=== PATIENT | female | born 1995 | race Caucasian/White ===

== ENCOUNTER 2019-06-01 10:44 | Emergency (ER) | payer OTHER, MEDICAID, SELFPAY ==
[2019-06-01 10:55] VITALS: BP 122/76; PULSE 87; RESP 17; TEMP 36.3; O2SAT 100
--- NOTE | 2019-06-01 11:07 | ED.FEMALEGU ---
HPI - Female Genitourinary General Chief complaint: Urogenital-Female Stated complaint: Pos UTI Time Seen by Provider: 06/01/19 11:07 Source: patient and RN notes reviewed History of Present Illness HPI Narrative: Patient is a 24-year-old male that presents the urgent care with complaints of a possible UTI. Patient states that it started 5 days ago and then resolved a little and then started again within the last 2 days. Patient states that she has had some mild low back pain and burning with urination. Denies of any known fevers, vomiting, abdominal pain. Patient states she does have history of urinary tract infections but has been approximately 2 years. No other acute complaints. No acute distress noted. Patient aware of the plan of care. Related Data Home Medications Medication Instructions Recorded Confirmed bupropion HCl 150 mg PO DAILY 06/01/19 06/01/19 fluoxetine [Prozac] 10 mg PO DAILY 06/01/19 06/01/19 Allergies Allergy/AdvReac Type Severity Reaction Status Date / Time Sulfa (Sulfonamide Allergy Swelling Verified 06/01/19 11:00 Antibiotics) Review of Systems Review of Systems: Narrative: CONSTITUTIONAL: Denies fever, chills, or sweats. EYES: Denies visual changes, redness, or discharge. ENT: Denies rhinorrhea, congestion, sore throat, or otalgia. CARDIOVASCULAR: Denies chest pain, palpitations, or edema. RESPIRATORY: Denies cough or dyspnea. GASTROINTESTINAL: Denies abdominal pain, nausea, vomiting, or diarrhea. GENITOURINARY: Reports of dysuria and suprapubic pressure SKIN: Denies rash or itching. MUSCULOSKELETAL: Denies back pain, joint pain, or myalgia. NEUROLOGIC: Denies headache, numbness, or weakness. All other systems reviewed are negative, except as documented in HPI. PMFSH Comments At the time of my signature, I reviewed and agree with the nursing past medical, surgical, social, and family history. There is no relevant family history pertinent to the patient complaint. Exam Narrative: Exam Narrative: GENERAL: This is a well-nourished, well-developed patient, in no apparent distress. HEAD: normocephalic, atraumatic. EYES: PERRL. Sclera clear/white. Vision is grossly intact. EARS: External ears normal NOSE: External nose normal with no obvious nasal discharge THROAT: Mucous membranes moist NECK: Neck supple CARDIOVASCULAR: Regular rate and rhythm without murmurs, gallops, or rubs. RESPIRATORY: Clear to auscultation. Breath sounds equal bilaterally. No wheezes, rales, or rhonchi. ABDOMINAL: Soft, nondistended, mild suprapubic tenderness SKIN: warm, intact with no suspicious lesions or rash, good texture and turgor. NEURO: awake, alert, and oriented to person, place and time. There were no obvious focal neurologic abnormalities. EXTREMITIES: No clubbing, cyanosis, or edema. BACK: Mild left CVA tenderness Course Vital Signs Vital signs: Vital Signs Temperature 97.3 F L 06/01/19 10:55 Pulse Rate 87 06/01/19 10:55 Respiratory Rate 17 06/01/19 10:55 Blood Pressure 122/76 06/01/19 10:55 Pulse Oximetry 100 06/01/19 10:55 Temperature 97.3 F L 06/01/19 10:55 Pulse Rate 87 06/01/19 10:55 Respiratory Rate 17 06/01/19 10:55 Blood Pressure 122/76 06/01/19 10:55 Pulse Oximetry 100 06/01/19 10:55 Reviewed MDM - Female Genitourinary MDM Narrative Medical decision making narrative: Reviewed lab results with the patient. She is aware that her urine analysis is indicative for urinary tract infection. Advised the patient to complete antibiotic regimen as prescribed. Avoid caffeinated and sugary drinks. Increase water intake. Use Tylenol/ibuprofen as needed. Make sure to eat and drink with the medication. If you develop any increase in symptoms associated with abdominal pain, nausea, vomiting, low back pain?go to the emergency room. Complete 1 dose of Diflucan after antibiotic regimen is completed. Follow-up with PCP within 2 to 5 days if her worsening symptoms
== END 2019-06-01 11:33 | disposition home or self-care (01) ==
PROVIDERS: Emergency Provider Nurse Practitioner Family
DX: N39.0 Urinary tract infection, site not specified (principal); J45.909 Unspecified asthma, uncomplicated
CPT/HCPCS: 81003; 87077; 87086; 87088; 87186; 99213; G0463

== ENCOUNTER 2019-10-19 16:37 | Emergency (ER) | payer OTHER, MEDICAID, SELFPAY ==
[2019-10-19 16:57] VITALS: BP 114/51; PULSE 77; RESP 20; TEMP 36.4; O2SAT 96
--- NOTE | 2019-10-19 17:19 | ED.FEMALEGU ---
HPI - Female Genitourinary General Chief complaint: Urogenital-Female Stated complaint: pos uti Time Seen by Provider: 10/19/19 17:19 Source: patient and RN notes reviewed Limitations: no limitations History of Present Illness HPI Narrative: 24-year-old female who presents to urgent care with complaints of 3-day history of painful urination. Patient states that she has pressure in her lower abdomen and in urethra area with urination. She reports taking a dose of AZO last pm for he symptoms with no improvement noted. Patient denies any fevers, chills or sweats, no nausea or vomiting or any acute abdominal pain. She reports no visible hematuria. MD elicited complaint: dysuria and UTI Pertinent past history: recurrent UTIs Onset (ago): day(s) (2) Location of symptoms: external genitalia, perineum and suprapubic Severity: moderate Severity scale (1-10): 4 Quality of pain: aching Consistency: intermittent Vaginal discharge: none Urinary symptoms: Dysuria and Frequency Exacerbating factors: none Relieving factors: none Associated symptoms: abdominal pain (suprapubic pressure) Treatment prior to arrival: other (increased fluis, AZO one dose) Sexual activity: Yes Patient : No Related Data Home Medications Medication Instructions Recorded Confirmed albuterol sulfate 2 puff INHALATION QID PRN 10/19/19 10/19/19 Allergies Allergy/AdvReac Type Severity Reaction Status Date / Time Sulfa (Sulfonamide Allergy Swelling Verified 10/19/19 16:56 Antibiotics) Review of Systems Review of Systems: Narrative: CONSTITUTIONAL: Denies fever, chills, or sweats. EYES: Denies visual changes, redness, or discharge. ENT: Denies rhinorrhea, congestion, sore throat, or otalgia. CARDIOVASCULAR: Denies chest pain, palpitations, or edema. RESPIRATORY: Denies cough or dyspnea. GASTROINTESTINAL: suprapubic abdominal pain, no nausea, vomiting, or diarrhea. GENITOURINARY: positive dysuria no visible hematuria. SKIN: Denies rash or itching. MUSCULOSKELETAL: Denies back pain, joint pain, or myalgia. NEUROLOGIC: Denies headache, numbness, or weakness. PSYCHIATRIC: Denies anxiety or depression. All systems reviewed & are unremarkable except as noted in HPI and below PMFSH Past Medical History Medical History (Updated 10/20/19 @ 21:00 by Cara Pascual NP) Asthma Hypothyroidism UTI (urinary tract infection) Surgical History Surgical History (Updated 10/19/19 @ 17:22 by Cara Pascual NP) History of tonsillectomy Social History Social History (Updated 10/19/19 @ 17:27 by Cara Pascual NP) Smoking status: Never smoker Alcohol intake: current Alcohol use details: rare Living arrangements: with family Gender identity (if verbalized by the patient): Female Comments At time of signature, agree with nursing past medical, surgical, social history. There is no relevant family history pertinent to the presenting complaint Exam Narrative: Exam Narrative: GENERAL: Well-appearing, well-nourished, and in no acute distress. HEAD: Normocephalic, atraumatic. EYES: PERRLA and EOMI. ENT: Nares clear, no rhinorrhea or epistaxis. Mucous membranes moist. NECK: Supple. CHEST: Clear to auscultation. No respiratory distress. HEART: Regular rate and rhythm. No murmur heard. Normal peripheral pulses. ABDOMEN: Soft, suprapubic tender, nondistended, normal active bowel sounds.no back or flank pain EXTREMITIES: Normal range of motion. No edema. SKIN: Warm, dry, no rash. NEURO: No focal deficits. Alert and oriented x3. Course Vital Signs Vital signs: Vital Signs Temperature 36.4 C L 10/19/19 16:57 Pulse Rate 77 10/19/19 16:57 Respiratory Rate 10/19/19 16:57 Blood Pressure 114/51 L 10/19/19 16:57 Pulse Oximetry 96 10/19/19 16:57 Temperature 36.4 C L 10/19/19 16:57 Pulse Rate 77 10/19/19 16:57 Respiratory Rate 10/19/19 16:57 Blood Pressure 114/51 L 10/19/19 16:57 Pulse Oximetry 96
== END 2019-10-19 17:47 | disposition home or self-care (01) ==
PROVIDERS: Emergency Provider Registered Nurse
DX: N39.0 Urinary tract infection, site not specified (principal); J45.909 Unspecified asthma, uncomplicated; E03.9 Hypothyroidism, unspecified
CPT/HCPCS: 81003; 87077; 87086; 87088; 87186; 99213; G0463

== ENCOUNTER 2019-11-05 15:17 | Emergency (ER) | payer OTHER, MEDICAID, SELFPAY ==
--- NOTE | 2019-11-05 15:23 | ED.GENADULT ---
HPI - General Adult General Chief complaint: Urogenital-Female Stated complaint: Urogenital-female Time Seen by Provider: 11/05/19 15:42 Source: patient Mode of arrival: ambulatory Limitations: no limitations History of Present Illness HPI narrative: 24-year-old female patient presents to the [facility] with complaints of urinary symptoms that started yesterday. Patient states she has had burning and pain with urination as well as some lower abdominal pressure. Denies any low back pain. Denies any nausea, vomiting, diarrhea or fevers. Patient states she has not had a period in about 3 months and is currently not on control. Patient states that she is sexually active with a monogamous person. Patient does not have any concerns for STDs. Patient states she was seen here about 2 weeks ago for the same symptoms and was put on antibiotics at that time for UTI which she states that after taking the medication her symptoms. Did clear up until yesterday. Patient states that she has gotten UTIs frequently especially when she was in high school. Related Data Home Medications Medication Instructions Recorded Confirmed albuterol sulfate 2 puff INHALATION QID PRN 10/19/19 11/05/19 Allergies Allergy/AdvReac Type Severity Reaction Status Date / Time Sulfa (Sulfonamide Allergy Swelling Verified 10/19/19 16:56 Antibiotics) Review of Systems Review of Systems: Narrative: CONSTITUTIONAL: Denies fever, chills, or sweats. EYES: Denies visual changes, redness, or discharge. ENT: Denies rhinorrhea, congestion, sore throat, or otalgia. CARDIOVASCULAR: Denies chest pain, palpitations, or edema. RESPIRATORY: Denies cough or dyspnea. GASTROINTESTINAL: Denies abdominal pain, nausea, vomiting, or diarrhea. GENITOURINARY: Denies dysuria or hematuria. Positive pain with urination and lower abdominal pressure SKIN: Denies rash or itching. MUSCULOSKELETAL: Denies back pain, joint pain, or myalgia. NEUROLOGIC: Denies headache, numbness, or weakness. PSYCHIATRIC: Denies anxiety or depression. [facility] Past Medical History Medical History Asthma Hypothyroidism UTI (urinary tract infection) Surgical History Surgical History History of tonsillectomy Social History Social History Smoking status: Never smoker Alcohol intake: current Gender identity (if verbalized by the patient): Female Comments At the time of my signature I agree with nursing past medical history, surgical, social, and family history. There is no relevant family history pertinent to the presenting complaint. Exam Narrative: Exam Narrative: GENERAL: Well-appearing, well-nourished, and in no acute distress. HEAD: Normocephalic, atraumatic. EYES: PERRLA and EOMI. ENT: Nares clear, no rhinorrhea or epistaxis. Mucous membranes moist. NECK: Supple. No lymphadenopathy CHEST: Clear to auscultation. No respiratory distress. HEART: Regular rate and rhythm. No murmur heard. Normal peripheral pulses. ABDOMEN: Soft, nontender, nondistended, normal active bowel sounds. No CVA tenderness on percussion EXTREMITIES: Normal range of motion. No edema. SKIN: Warm, dry, no rash. NEURO: No focal deficits. Alert and oriented x3. Course Vital Signs Vital signs: Vital Signs Temperature 36.6 C 11/05/19 15:28 Pulse Rate 124 H 11/05/19 15:28 Respiratory Rate 16 11/05/19 15:28 Blood Pressure 126/71 11/05/19 15:28 Pulse Oximetry 100 11/05/19 15:28 Temperature 36.6 C 11/05/19 15:28 Pulse Rate 124 H 11/05/19 15:28 Respiratory Rate 16 11/05/19 15:28 Blood Pressure 126/71 11/05/19 15:28 Pulse Oximetry 100 11/05/19 15:28 Vital signs reviewed. Medical Decision Making Differential Diagnosis Differential Diagnosis: Differential diagnosis: Uncomplicated lower UTI, uncomplicated UTI, john
[2019-11-05 15:28] VITALS: BP 126/71; PULSE 124; RESP 16; TEMP 36.6; O2SAT 100
== END 2019-11-05 15:56 | disposition home or self-care (01) ==
PROVIDERS: Emergency Provider Nurse Practitioner Family
DX: N30.01 Acute cystitis with hematuria (principal); J45.909 Unspecified asthma, uncomplicated; E03.9 Hypothyroidism, unspecified
CPT/HCPCS: 81003; 81025; 87086; 87088; 99213; G0463

== ENCOUNTER 2020-04-06 08:58 | Emergency (ER) | payer OTHER, MEDICAID, SELFPAY ==
[2020-04-06 09:09] VITALS: BP 124/80; PULSE 69; RESP 16; TEMP 36.6; O2SAT 100
--- NOTE | 2020-04-06 09:34 | ED.FEMALEGU ---
HPI - Female Genitourinary General Chief complaint: Urogenital-Female Stated complaint: uti symptoms Source: patient and RN notes reviewed Limitations: no limitations History of Present Illness HPI Narrative: The obese patient, non-smoker/nondrinker, presents with a couple day history of urinary frequency, urgency and dysuria. Symptoms are like prior UTI a couple months ago --that were culture pansensitive [prior to that, she had ampicillin and Cipro resistance]. No fever, LBP, hematuria, vaginal discharge-she had a recent negative test. Symptoms are mild, worse with micturition. Related Data Allergies Allergy/AdvReac Type Severity Reaction Status Date / Time Sulfa (Sulfonamide Allergy Swelling Verified 04/06/20 09:10 Antibiotics) Review of Systems Review of Systems: Narrative: General/Constitutional: No weight loss,fever Eyes: N0: Redness,discharge Ears/Nose/Throat: No: Epistaxis,ear discharge Respiratory: Denies: Hemoptysis Gastrointestinal: No Vomiting, Bleeding-rectal Skin: No Lumps, eruption Neurologic: No Focal Weakness,Sz Hematologic: Denies: Petechiae/Purpura Psychiatric: No: Suicida ideationl All Other Systems: Reviewed and Negative [facility] Past Medical History Medical History (Updated 04/06/20 @ 09:36 by Mason Amaya MD) Asthma Hypothyroidism UTI (urinary tract infection) Surgical History Surgical History History of tonsillectomy Social History Social History Smoking status: Never smoker Alcohol intake: current Gender identity (if verbalized by the patient): Female Comments At time of signature, agree with nursing past medical, surgical, social and family history. There is no relevant family history pertinent to the presenting complaint Exam Narrative: Exam Narrative: General Appearance: Well appearing,Conjunctiva clear Ears: External ear normal Nose: Normal nose Mouth/Throat: Normal appearing, Normal lips, Supple Respiratory: Airway patent, No respiratory distress Cardiovascular: RRR Abdomen: Soft, Non-tender, No massess, No organomegaly (no rebound/ surgical signs), Musculoskeletal: Full ROM Skin: Warm, Dry Neurological: A&O x3, Normal mood, Normal affect Course Vital Signs Vital signs: Vital Signs Temperature 97.8 F 04/06/20 09:09 Pulse Rate 69 04/06/20 09:09 Respiratory Rate 16 04/06/20 09:09 Blood Pressure 124/80 04/06/20 09:09 Pulse Oximetry 100 04/06/20 09:09 Temperature 97.8 F 04/06/20 09:09 Pulse Rate 69 04/06/20 09:09 Respiratory Rate 16 04/06/20 09:09 Blood Pressure 124/80 04/06/20 09:09 Pulse Oximetry 100 04/06/20 09:09 MDM - Female Genitourinary Lab Data Labs: Urine Glucose Negative Reference Range: Negative Urine Bilirubin Negative Reference Range: Negative Urine Ketone Negative Reference Range: Negative Urine Specific [place] 1.030 Reference Range:1.001-1.035 Urine Blood Trace Reference Range: Negative * * Urine pH 5.5 Reference Range: 5.0-9.0 Urine Protein Trace Reference Range: Negative Urine Urobilinogen 0.2 Reference Range: 0.2-1.0 Urine Nitrate Negative Reference Range: Negative Urine Leukocyte
== END 2020-04-06 09:40 | disposition home or self-care (01) ==
PROVIDERS: Emergency Provider Emergency Medicine; PCP Family Medicine
DX: N30.90 Cystitis, unspecified without hematuria (principal); J45.909 Unspecified asthma, uncomplicated; E03.9 Hypothyroidism, unspecified
CPT/HCPCS: 81003; 87077; 87086; 87088; 87186; 87491; 87591; 87661; 99214; G0463

== ENCOUNTER 2020-10-09 18:14 | Emergency (ER) | payer OTHER, MEDICAID, SELFPAY ==
[2020-10-09 18:20] VITALS: BP 137/79; PULSE 103; RESP 16; TEMP 36.8; O2SAT 100
--- NOTE | 2020-10-09 18:31 | ED.SYNCOPE ---
HPI - Syncope General Chief Complaint: Syncope Stated Complaint: PASSING OUT Time Seen by Provider: 10/09/20 18:31 Source: patient and RN notes reviewed History of Present Illness HPI narrative: Patient is a 25-year-old female who presents the urgent care with complaints of falling asleep/nodding off multiple times a day . Patient states that this has been occurring for approximately 4 weeks. Denies of any recent head injury. States that she is not passing out but rather it nodding off . Patient denies of any loss of consciousness. States that the nodding off last approximately seconds. Patient denies of any new medications or illicit drug use. States that she has called her primary care doctor and has an appointment next week. Denies of any recent changes in diet or any strenuous exercise. No other acute complaints. No acute distress noted. Patient aware of the plan of care. Some parts of this dictation were generated by voice recognition software and may contain typographical and/or grammatical inaccuracies. Related Data Allergies Allergy/AdvReac Type Severity Reaction Status Date / Time Sulfa (Sulfonamide Allergy Swelling Verified 04/06/20 09:10 Antibiotics) Review of Systems Review of Systems: Narrative: CONSTITUTIONAL: Denies fever, chills, or sweats. EYES: Denies visual changes, redness, or discharge. ENT: Denies rhinorrhea, congestion, sore throat, or otalgia. CARDIOVASCULAR: Denies chest pain, palpitations, or edema. RESPIRATORY: Denies cough or dyspnea. GASTROINTESTINAL: Denies abdominal pain, nausea, vomiting, or diarrhea. GENITOURINARY: Denies dysuria or hematuria. SKIN: Denies rash or itching. MUSCULOSKELETAL: Denies back pain, joint pain, or myalgia. NEUROLOGIC: Reports of episodes of nodding off . All other systems reviewed are negative, except as documented in HPI. [facility] Past Medical History Medical History (Updated 10/09/20 @ 19:02 by LISSET Leyva) Asthma Hypothyroidism UTI (urinary tract infection) Surgical History Surgical History History of tonsillectomy Social History Social History Smoking status: Never smoker Alcohol intake: current Alcohol use details: rare Gender identity (if verbalized by the patient): Female Comments At the time of my signature, I reviewed and agree with the nursing past medical, surgical, social, and family history. There is no relevant family history pertinent to the patient complaint. Exam Narrative: Exam Narrative: GENERAL: This is a well-nourished, well-developed patient, in no apparent distress. HEAD: normocephalic, atraumatic. EYES: PERRL. Sclera clear/white. Vision is grossly intact. EARS: External ears normal, auditory canals clear and without drainage, TMs normal without perforation. Hearing grossly intact. NOSE: External nose normal with no obvious nasal discharge, nares without redness, no rhinorrhea. THROAT: Mucous membranes moist, posterior pharynx clear. NECK: Neck supple, non-tender without lymphadenopathy, masses or thyromegaly. CARDIOVASCULAR: Regular rate and rhythm without murmurs, gallops, or rubs. RESPIRATORY: Clear to auscultation. Breath sounds equal bilaterally. No wheezes, rales, or rhonchi. SKIN: warm, intact with no suspicious lesions or rash, good texture and turgor. NEURO: awake, alert, and oriented to person, place and time. There were no obvious focal neurologic abnormalities. EXTREMITIES: No clubbing, cyanosis, or edema. Course Vital Signs Vital signs: Vital Signs Temperature 98.3 F 10/09/20 18:20 Pulse Rate 103 H 10/09/20 18:20 Respiratory Rate 16 10/09/20 18:20 Blood Pressure 137/79 10/09/20 18:20 Pulse Oximetry 100 10/09/20 18:20 Temperature 98.3 F 10/09/20 18:20 Pulse Rate 90 10/09/20 18:50 Respiratory Rate 16 10/09/20 18:20 Blood Pressure 114/67
--- NOTE | 2020-10-09 18:37 | ECG_ITS ---
Measurements Intervals [place] Rate: 73 P: 58 MA: 148 QRS: 60 QRSD: 77 T: 37 QT: 344 QTc: 381 Interpretive Statements SINUS RHYTHM NORMAL ECG Electronically Signed On 10-10-2020 7:52:09 CDT by Ulises Kuhn D.O.
[2020-10-09 18:49] VITALS: BP 114/69; BP 125/86; PULSE 74; PULSE 85
[2020-10-09 18:49] LABS: Glucose Point of Care 85 mg/dl (65-105)
[2020-10-09 18:50] VITALS: BP 114/67; PULSE 90
== END 2020-10-09 19:08 | disposition home or self-care (01) ==
PROVIDERS: Emergency Provider Nurse Practitioner Family; PCP Family Medicine
DX: R53.83 Other fatigue (principal); J45.909 Unspecified asthma, uncomplicated; E03.9 Hypothyroidism, unspecified
CPT/HCPCS: 82948; 93005; 99213; G0463

== ENCOUNTER 2021-03-27 16:55 | Emergency (ER) | payer OTHER, MEDICAID, SELFPAY ==
--- NOTE | 2021-03-27 16:59 | ED.FEMALEGU ---
HPI - Female Genitourinary General Chief complaint: Urogenital-Female Stated complaint: Urinary pain Time Seen by Provider: 03/27/21 16:59 Source: patient and RN notes reviewed History of Present Illness HPI Narrative: Patient is a 26-year-old female who presents to urgent care with complaints of a possible UTI. Patient states that her symptoms started last night with burning on urination and suprapubic pressure. Patient denies of any frequency, urgency or blood in the urine. Denies of any fever or vomiting. Patient is increased her water intake but otherwise has not taken anything [id number] for her symptoms. No other acute complaints. No acute distress noted. Patient aware of the plan of care. Some parts of this dictation were generated by voice recognition software and may contain typographical and/or grammatical inaccuracies. Related Data Home Medications Medication Instructions Recorded Confirmed albuterol sulfate INHALATION 03/27/21 enoxaparin 03/27/21 escitalopram oxalate mg 03/27/21 hydrocodone-acetaminophen 03/27/21 sumatriptan succinate mg PO 03/27/21 Allergies Allergy/AdvReac Type Severity Reaction Status Date / Time Sulfa (Sulfonamide Allergy Swelling Verified 03/27/21 17:01 Antibiotics) Review of Systems Review of Systems: CONSTITUTIONAL: Denies fever, chills, or sweats. EYES: Denies visual changes, redness, or discharge. ENT: Denies rhinorrhea, congestion, sore throat, or otalgia. CARDIOVASCULAR: Denies chest pain, palpitations, or edema. RESPIRATORY: Denies cough or dyspnea. GASTROINTESTINAL: Denies abdominal pain, nausea, vomiting, or diarrhea. GENITOURINARY: Reports of dysuria and suprapubic pressure SKIN: Denies rash or itching. MUSCULOSKELETAL: Denies back pain, joint pain, or myalgia. NEUROLOGIC: Denies headache, numbness, or weakness. All other systems reviewed are negative, except as documented in HPI. [facility] Past Medical History Medical History (Updated 03/27/21 @ 17:40 by LISSET Leyva) Asthma Hypothyroidism UTI (urinary tract infection) Surgical History Surgical History History of tonsillectomy Social History Social History (Reviewed 11/05/19 @ 15:24 by KATHERINE Frederick Smoking status: Never smoker Alcohol intake: current Alcohol use details: rare Gender identity (if verbalized by the patient): Female Comments At the time of my signature, I reviewed and agree with the nursing past medical, surgical, social, and family history. There is no relevant family history pertinent to the patient complaint. Exam Narrative: GENERAL: This is a well-nourished, well-developed patient, in no apparent distress. HEAD: normocephalic, atraumatic. EYES: PERRL. Sclera clear/white. Vision is grossly intact. EARS: External ears normal NOSE: External nose normal with no obvious nasal discharge, nares without redness, no rhinorrhea. THROAT: Mucous membranes moist NECK: Neck supple CARDIOVASCULAR: Regular rate and rhythm without murmurs, gallops, or rubs. RESPIRATORY: Clear to auscultation. Breath sounds equal bilaterally. No wheezes, rales, or rhonchi. GASTROINTESTINAL: Abdomen soft, non-tender, nondistended. Bowel sounds are active. SKIN: warm, intact with no suspicious lesions or rash, good texture and turgor. NEURO: awake, alert, and oriented to person, place and time. There were no obvious focal neurologic abnormalities. EXTREMITIES: No clubbing, cyanosis, or edema. No joint tenderness, effusion, or edema noted. Cast to the right lower extremity BACK: Negative CVA tenderness Course Course Level of Care: Express Care Visit Vital Signs Vital signs: Vital Signs Temperature 97.8 F 03/27/21 17:02 Pulse Rate 72 03/27/21 17:02 Respiratory Rate 16 03/27/21 17:02 Blood Pressure 125/79 03/27/21 17:02 Pulse Oximetry 99 03/27/21 17:02 Temperature 97.8 F 03/27/21 17:02 Pu
[2021-03-27 17:02] VITALS: BP 125/79; PULSE 72; RESP 16; TEMP 36.6; O2SAT 99
== END 2021-03-27 17:45 | disposition home or self-care (01) ==
PROVIDERS: Emergency Provider Nurse Practitioner Family
DX: N39.0 Urinary tract infection, site not specified (principal); J45.909 Unspecified asthma, uncomplicated; E03.9 Hypothyroidism, unspecified
CPT/HCPCS: 81003; 87077; 87086; 87088; 87186; 99213; G0463

== ENCOUNTER 2023-07-14 11:49 | Observation (INO) | payer BC, SELFPAY ==
[2023-07-14] VITALS (9 sets, daily range): BP systolic 105–117; BP diastolic 65–74; PULSE 76–81; BMI 38.5
--- NOTE | ~2023-07-14 | US_ITS ---
EXAMINATION: US OB limited DATE: 07/14/2023 15:56 INDICATION: Cervical length. History of cervical biopsy. TECHNIQUE: Real-time ultrasound of the pelvis was performed. COMPARISON: None. FINDINGS: There is a single fetus in variable presentation. The placenta is fundal and on the right. hea rt rate is 153 beats per minute (bpm). The amniotic fluid volume is normal. The deepest vertical pock et is 5.3 cm. The cervical length is 4.2 cm on transabdominal images, which is normal. IMPRESSION: 1. Single living fetus in variable presentation. 2. Normal cervical length. Reviewed, dictated and finalized at location E.
--- NOTE | 2023-07-14 12:52 | OBADM ---
This patient, Jane Bhatt, admitted to the OB room 115 for observation for cramping and vaginal spotting of pink blood. Patient/family oriented to hospital policies and general routines including ID bracelet, bed and alarms, visiting hours, pain management, procedures, bathroom and other care routines, personal items, smoking policy, room service/diet, and visiting hours. Patient/Family are encouraged to report perceived risks to care and to ask questions if they do not understand what they are told or what they should do.
[2023-07-14 14:26] LABS: Appearance Urine Clear (Clear); Bilirubin Urine Negative (Negative); Blood Urine Negative (Negative); Color Urine Yellow (Yellow); Glucose Urine UA Negative (Negative); Ketones Urine Negative (Negative); Leukocyte Esterase Ur Negative LEU/UL (Negative); Nitrate Urine Negative (Negative); Protein Urine Negative (Negative); Specific Grav Ur 1.008 (1.001-1.035); Urobilinogen Urine 0.2 mg/dL (<2.0)
[2023-07-14 14:33] LABS: Add Urine Microscopic? NO
--- NOTE | 2023-08-08 20:28 | P.PNOB_ITS ---
OB - Triage/Final Diagnosis Visit Information Comments/Additional reasons for admission: I have assessed the risk for this patient, Jane Bhatt, and determined that she would benefit from observation care. Evaluation Laboratory results: Laboratory Tests 07/14/23 14:13 Urine Color Yellow Urine Appearance Clear Urine pH 6.0 Ur Specific [place] 1.008 Urine Protein Negative Urine Glucose (UA) Negative Urine Ketones Negative Ur Blood (Man) Negative Urine Nitrate Negative Urine Bilirubin Negative Urine Urobilinogen 0.2 Leukocyte Esterase Rfl Negative Final Diagnosis (1) Abdominal pain: Code(s): R10.9 - Unspecified abdominal pain Status: Acute
== END 2023-07-14 17:27 | disposition home or self-care (01) ==
PROVIDERS: Advanced Practice Midwife; Admitting Provider Obstetrics & Gynecology; PCP Family Medicine; Visit Provider Obstetrics & Gynecology
DX: O26.892 Other specified pregnancy related conditions, second trimester (principal); R10.9 Unspecified abdominal pain; Z3A.18 18 weeks gestation of pregnancy
CPT/HCPCS: 76815; 81003; G0378; G0379

== ENCOUNTER 2023-08-22 22:46 | Observation (INO) | payer BC, SELFPAY ==
--- NOTE | 2023-08-22 23:00 | OBADM ---
This patient, Jane Bhatt, admitted to the OB room OB Post 115 for observation. Patient/family oriented to hospital policies and general routines including ID bracelet, bed and alarms, visiting hours, pain management, procedures, bathroom and other care routines, personal items, smoking policy, room service/diet, and visiting hours. Patient/Family are encouraged to report perceived risks to care and to ask questions if they do not understand what they are told or what they should do.
[2023-08-22 23:15] VITALS: BP 121/73; PULSE 75
[2023-08-22 23:20] LABS: Add Urine Microscopic? YES; Appearance Urine Clear (Clear); Bacteria Urine 2+ /hpf; Bilirubin Urine Negative (Negative); Blood Urine Negative (Negative); Color Urine Yellow (Yellow); Glucose Urine UA Negative (Negative); Ketones Urine Negative (Negative); Leukocyte Esterase Ur 1+ LEU/UL (Negative); Nitrate Urine Negative (Negative); Non Pathogenic Casts 0-2; Protein Urine Negative (Negative); RBC Urine 0-2 /hpf (0-2); Specific Grav Ur 1.015 (1.001-1.035); Squamous Epithelial Cell Urine Moderate /hpf (Few)
[2023-08-22 23:30] VITALS: BP 118/73; PULSE 70
[2023-08-22 23:45] VITALS: BP 115/74; PULSE 74
[2023-08-23] VITALS: BP 115/68; PULSE 77
--- NOTE | 2023-09-19 20:45 | PM.OBTRLD ---
OB - Triage/Final Diagnosis Visit Information Comments/Additional reasons for admission: I have assessed the risk for this patient, Jane Bhatt, and determined that she would benefit from observation care. Evaluation Laboratory results: Laboratory Tests 08/22/23 23:06 Urine Color Yellow Urine Appearance Clear Urine pH 6.0 Ur Specific [place] 1.015 Urine Protein Negative Urine Glucose (UA) Negative Urine Ketones Negative Ur Blood (Man) Negative Urine Nitrate Negative Urine Bilirubin Negative Urine Urobilinogen 1.0 Leukocyte Esterase Rfl 1+ H Urine RBC 0-2 Urine WBC 11-20 H Ur Squamous Epith Cells Moderate Urine Bacteria 2+ H Urine Casts 0-2 Final Diagnosis (1) Uterine cramping: Code(s): N94.89 - Other specified conditions associated with female genital organs and menstrual cycle Status: Acute
== END 2023-08-23 00:36 | disposition home or self-care (01) ==
PROVIDERS: Admitting Provider Obstetrics & Gynecology; PCP Family Medicine; Visit Provider Obstetrics & Gynecology
DX: O26.892 Other specified pregnancy related conditions, second trimester (principal); R10.9 Unspecified abdominal pain; Z3A.25 25 weeks gestation of pregnancy
CPT/HCPCS: 81001; 87086; 87088; G0378; G0379

== ENCOUNTER 2023-08-30 12:08 | Observation (INO) | payer BC, SELFPAY ==
--- NOTE | ~2023-08-30 | US_ITS ---
EXAMINATION: US OB limited DATE: 08/30/2023 15:06 INDICATION: Placenta check for fell . TECHNIQUE: Real-time ultrasound of the pelvis was performed. COMPARISON: 07/14/2023. FINDINGS: There is a single living fetus in variable presentation, transverse lie, maternal right. The placent a is fundal, well distant from the cervix. heart rate is 158 bpm. IMPRESSION: Single living fetus in variable presentation, transverse lie. Normal appearing fundal placenta. Reviewed, dictated and finalized at location K.
--- NOTE | 2023-08-30 12:08 | OBADM ---
This patient, Jane Bhatt, admitted to the OB room OB Post 112 for observation. PT came to unit sice she fell on the stomach around 1100. denies vaginal bleeding. feels some cramping. Patient/family oriented to hospital policies and general routines including ID bracelet, bed and alarms, visiting hours, pain management, procedures, bathroom and other care routines, personal items, smoking policy, room service/diet, and visiting hours. Patient/Family are encouraged to report perceived risks to care and to ask questions if they do not understand what they are told or what they should do.
[2023-08-30 12:25] VITALS: BP 112/76; PULSE 114
[2023-08-30 12:30] VITALS: BP 117/76; PULSE 102
[2023-08-30 12:45] VITALS: BP 113/75; PULSE 89
[2023-08-30 13:00] VITALS: BP 123/75; PULSE 84
--- NOTE | 2023-09-20 10:46 | PM.OBTRLD ---
OB - Triage/Final Diagnosis Visit Information Comments/Additional reasons for admission: I have assessed the risk for this patient, Jane Bhatt, and determined that she would benefit from observation care. Final Diagnosis (1) Fall: Qualifiers: Encounter type: initial encounter Qualified Code(s): W19.XXXA - Unspecified fall, initial encounter Code(s): W19.XXXA - Unspecified fall, initial encounter Status: Acute
== END 2023-08-30 16:02 | disposition home or self-care (01) ==
PROVIDERS: Admitting Provider Obstetrics & Gynecology; PCP Family Medicine; Visit Provider Obstetrics & Gynecology
DX: Z04.3 Encounter for examination and observation following other accident (principal); O26.892 Other specified pregnancy related conditions, second trimester; W19.XXXA Unspecified fall, initial encounter; Z3A.26 26 weeks gestation of pregnancy
CPT/HCPCS: 76815; G0378; G0379

== ENCOUNTER 2023-10-05 06:09 | Observation (INO) | payer BC, SELFPAY ==
--- NOTE | ~2023-10-05 | US_ITS ---
Renal-Bladder ultrasound Clinical History: Back pain, history of stones Technique: Real-time sonographic imaging of the kidneys and urinary bladder was performed. Findings: The right kidney measures 10.9 cm in length and the left kidney measures 12.0 cm. There is mild bilateral hydronephrosis. Probable 7 mm nonobstructing left renal stone. Renal cortical echogeni city is within normal limits. No renal mass lesion is identified. The urinary bladder is moderately distended at the time of this exam. No intraluminal echoes are iden tified. No abnormal wall thickening is seen. Gravid uterus noted. Impression: Mild bilateral hydronephrosis. Suspected 7 mm nonobstructing left renal stone. Gravid uterus. Reviewed, dictated and finalized at location . Impression: Mild bilateral hydronephrosis. Suspected 7 mm nonobstructing left renal stone. Gravid uterus.
[2023-10-05 06:30] VITALS: BP 123/80; PULSE 81
[2023-10-05 06:32] VITALS: BMI 39.7
--- NOTE | 2023-10-05 06:32 | OBADM ---
This patient, Jane Bhatt, admitted to the OB room OB Post 116 for observation. Patient/family oriented to hospital policies and general routines including ID bracelet, bed and alarms, visiting hours, pain management, procedures, bathroom and other care routines, personal items, smoking policy, room service/diet, and visiting hours. Patient/Family are encouraged to report perceived risks to care and to ask questions if they do not understand what they are told or what they should do.
[2023-10-05 06:45] VITALS: BP 118/72; PULSE 71
[2023-10-05 06:58] LABS: Bacteria Urine None Seen /hpf; Need Manual Microscopic Reviewed; Non Pathogenic Casts 0-2; RBC Urine >100 /hpf (0-2); Squamous Epithelial Cell Urine Occasional /hpf (Few); WBC Urine 0-5 /hpf (0-3)
[2023-10-05 06:59] LABS: Appearance Urine Clear (Clear); Bilirubin Urine 1+ (Negative); Blood Urine 3+ (Negative); Color Urine Orange (Yellow); Glucose Urine UA Negative (Negative); Ketones Urine Negative (Negative); Leukocyte Esterase Ur 1+ LEU/UL (Negative); Nitrate Urine Positive (Negative); Protein Urine Trace mg/dL (Negative); pH Urine 5.5 (5.0-9.0)
[2023-10-05 07:00] VITALS: BP 115/68; PULSE 70
[2023-10-05 07:00] LABS: Add Urine Microscopic? YES
[2023-10-05 07:15] VITALS: BP 129/76; PULSE 75
[2023-10-05] MEDS: ONDANSETRON HCL ODT 4 MG TABLET PO (07:17)
[2023-10-05] MEDS: HYDROcodone/acetaminophen (*CRX) 5-325 MG TABLET 1 TAB PO (07:18)
--- NOTE | 2023-10-06 12:55 | PM.OBTRLD ---
OB - Triage/Final Diagnosis Visit Information Comments/Additional reasons for admission: I have assessed the risk for this patient, Jane Bhatt, and determined that she would benefit from observation care. Evaluation Laboratory results: Laboratory Tests 10/05/23 06:22 Urine Color [place] H Urine Appearance Clear Urine pH 5.5 Ur Specific [place] 1.010 Urine Protein Trace Urine Glucose (UA) Negative Urine Ketones Negative Ur Blood (Man) 3+ H Urine Nitrate Positive H Urine Bilirubin 1+ H Urine Urobilinogen 1.0 Add Ur Microanalysis Reviewed Leukocyte Esterase Rfl 1+ H Urine RBC >100 H Urine WBC 0-5 Ur Squamous Epith Cells Occasional Urine Bacteria None seen Urine Casts 0-2 Final Diagnosis (1) Nephrolithiasis: Code(s): N20.0 - Calculus of kidney Status: Acute
== END 2023-10-05 10:10 | disposition home or self-care (01) ==
PROVIDERS: Admitting Provider Obstetrics & Gynecology; PCP Family Medicine; Visit Provider Obstetrics & Gynecology
DX: O26.893 Other specified pregnancy related conditions, third trimester (principal); N20.0 Calculus of kidney; Z3A.30 30 weeks gestation of pregnancy
CPT/HCPCS: 76775; 81001; A9270; G0378; G0379

== ENCOUNTER 2023-10-06 05:39 | Observation (INO) | payer BC, SELFPAY ==
--- NOTE | 2023-10-06 06:12 | PC.NURSE ---
Patient came in today with c/o kidney stone diagnosis yesterday and back pain which she doesnt know are contractions or not. She was told to come back if her pain was not managed
[2023-10-06 06:17] VITALS: BP 112/65; PULSE 73
[2023-10-06 06:32] VITALS: BMI 40.3
[2023-10-06 07:00] VITALS: BP 115/75; PULSE 63
[2023-10-06 07:08] VITALS: BP 115/75; PULSE 75
--- NOTE | 2023-10-06 08:01 | PM.IMHP ---
H&P: HPI History of Present Illness Date/Time: 10/06/23 08:01 Chief Complaint: pt admitted for evaluation for increased pain. Pt diagnosed yesterday with renal stone 10/05/23, 7mm. pt has history of kidney stone with one previous removal prior to . pt was prescribed oral norco 5/325mg and rating her pain at a 6 on arrival. Pt resting in room on my arrival FHR category 1 no contractions Review of Systems Review of Systems: All systems reviewed & are unremarkable except as noted in HPI and below PMFSH Past Medical History Medical History (Updated 10/05/23 @ 10:00 by Ashish Do MD) Asthma Hypothyroidism UTI (urinary tract infection) Surgical History Surgical History History of tonsillectomy Social History Social History Smoking status: Never smoker Alcohol intake: current Alcohol use details: rare Living arrangements: with family Gender identity (if verbalized by the patient): Female Meds Home Medications and Allergies Home Medications Medication Instructions Recorded Confirmed Type albuterol sulfate 90 mcg/actuation 2 puff inhalation Q4H PRN 03/27/21 10/05/23 History aerosol inhaler Shortness Of Breath Or Wheezing lamotrigine 100 mg tablet 150 mg PO HS 07/14/23 10/05/23 History vit no.95-ferrous 1 tablet PO DAILY 07/14/23 10/05/23 History fumarate 28 mg-folic acid 800 mcg tablet () hydrocodone 5 mg-acetaminophen 325 1 tablet PO Q6H PRN pain #10 tabs 10/05/23 Rx mg tablet Allergies Allergy/AdvReac Type Severity Reaction Status Date / Time Penicillins Allergy Swelling Verified 10/06/23 08:03 of Lip/Tongue/Throat Sulfa (Sulfonamide Allergy Swelling Verified 03/27/21 17:01 Antibiotics) Vital Signs Vital Signs - 24 hr 10/06/23 06:17 10/06/23 07:00 10/06/23 06:32 Pulse Rate 73 63 Blood Pressure 112/65 115/75 Oxygen Delivery Room Air Exam Const: General: cooperative and healthy appearing Chest: Chest palpation & inspection: normal inspection of the chest Cardio: Rate: regular rate Rhythm: regular rhythm GI: Other: soft, gravid Skin: General skin exam: normal color Neuro: General: patient oriented x3 Assessment and Plan Assessment and plan (1) Nephrolithiasis: Code(s): N20.0 - Calculus of kidney Status: Acute Plan 1. at 30.6 weeks gestation 2. nephrolithiasis 7mm increase hydration macrobid 100mg bid x7 days increase norco to 10/325 co-managing with dr. do
[2023-10-06] MEDS: NITROFURANTOIN MONOHYD MACROCR 100 MG CAP PO (08:07)
[2023-10-06] MEDS: HYDROcodone/acetaminophen (*CRX) 10-325 MG TABLET 1 TAB PO (08:07)
--- NOTE | 2023-10-07 17:11 | PM.OBTRLD ---
OB - Triage/Final Diagnosis Visit Information Date of evaluation: 10/06/23 Reason for evaluation: other (pain) Comments/Additional reasons for admission: I have assessed the risk for this patient, Jane Bahtt, and determined that she would benefit from observation care.
== END 2023-10-06 07:05 | disposition home or self-care (01) ==
PROVIDERS: Admitting Provider Obstetrics & Gynecology; PCP Family Medicine; Visit Provider Obstetrics & Gynecology
DX: O26.893 Other specified pregnancy related conditions, third trimester (principal); N20.0 Calculus of kidney; Z3A.30 30 weeks gestation of pregnancy
CPT/HCPCS: 59025; 87086; A9270; G0378; G0379

== ENCOUNTER 2023-10-21 14:21 | Outpatient (RCR) | payer BC, SELFPAY ==
[2023-10-21 14:51] VITALS: BP 117/78; PULSE 85
== END 2024-01-19 23:59 | disposition home or self-care (01) ==
LOC: ANHOBOP 14:21
PROVIDERS: PCP Family Medicine; Visit Provider Obstetrics & Gynecology
DX: O36.8130 Decreased fetal movements, third trimester, not applicable or unspecified (principal); Z3A.33 33 weeks gestation of pregnancy
CPT/HCPCS: 59025

== ENCOUNTER 2023-12-02 | Inpatient (IN) | payer BC, SELFPAY ==
[2023-12-02] VITALS (187 sets, daily range): BP systolic 86–152; BP diastolic 47–104; PULSE 55–153; TEMP 36.2–36.9; O2SAT 88–100; BMI 30.6
--- NOTE | ~2023-12-02 | CT_ITS ---
EXAMINATION: CT abdomen pelvis w con DATE: 12/06/2023 09:43 INDICATION: Abdominal pain. TECHNIQUE: Computed tomography (CT) of the abdomen and pelvis was performed with 100 mL Omnipaque 350 intravenous contrast. Automated exposure control and iterative reconstruction technique were employe d. The dose-length product was 1229.39 mGy-cm. COMPARISON: None. FINDINGS: The visualized portions of the lung bases demonstrate mild atelectasis. There are trace ple ural effusions. The heart size is normal. No pericardial effusion. The liver, gallbladder, spleen, pa ncreas, adrenal glands are normal. There is a 2 mm stone in right kidney. There is a 3 mm stone in le ft kidney. There are no dilated loops of bowel. The appendix is normal. The uterus is enlarged, consi stent with recent . The endometrial complex measures up to 15 mm in thickness. There is gas in the endometrial complex. There is gas in the bladder, likely from recent instrumentation. There ar e no pathologically enlarged lymph nodes. There is physiologic fluid in the pelvis. There is mild lum bar spondylosis. IMPRESSION: 1. Thickened endometrial complex suspicious for retained products of conception. Reviewed, dictated and finalized at location A. IMPRESSION: 1. Thickened endometrial complex suspicious for retained products of conception .
--- OUTSIDE RECORDS SUMMARY | 2023-12-02 00:07 | XMS_ITS ---
Care Plan - [facility] Created on: December 02, 2023 YAZMIN LY : 1995 Sex: Female Author Name Unknown Address [address] [place] [address] Phone Organization [facility] Address [address] [place] [address] Phone Care Team Providers Care Papier Mache' Molder Name Role Phone LISANDRO DENISE, RAÚL C Unavailable [phone] MADDY DENISE, [facility] Primary Care Provider [phone]
--- OUTSIDE RECORDS SUMMARY | 2023-12-02 00:07 | XMS_ITS ---
Author Name Unknown Address [address] [place] [address] Phone Organization [facility] Address [address] [place] [address] Phone Care Team Providers Care District Adviser Name Role Phone LISANDRO DENISE, RAÚL C Unavailable [phone] MADDY DENISE, [facility] Primary Care Provider [phone] Reason for Referral Date Encounter Description Provider Reason for Referral 05/12/16 NEW PATIENT VISIT MIMA JONES MD Requ est Consultation By Specialist Problems Includes: Active, inactive, and resolved Problems All Visits Onset Date Resolved Date Provider Condition S tatus Hypothyroidism 03/30/2018 DARNELL FERGUSON RN [facility] Active Plan of Treatment Findings Encounter Date Ordered Clinical summary pro vided to patient [employer] FITTER HELPER EXAM with DARNELL FERGUSON RN [facility] 03/30/2018 Referrals To Rita
--- OUTSIDE RECORDS SUMMARY | 2023-12-02 00:07 | XMS_ITS | Clinical Summary ---
Author Name Unknown Address [address] [place] [address] [facility] Address [address] [place] [address] Phone Care Team Providers Care Key Worker Name Role Phone LISANDRO DENISE, RAÚL C Unavailable [phone] MADDY DENISE, [facility] Primary Care Provider [phone] Reason for Visit and Chief Complaint The Chief Complaint is: Pt states she has not had any spotting or passed any blood clots since 2 days ago Problems Includes: Problems addressed during this encounter and other active Problems All Visits Onset Date Resolved Date Provider Condition S tatus Hypothyroidism 03/30/2018 DARNELL FEGRUSON RN NP Active Plan of Treatment Instructions to patient Instructions for patient ER if dizzy, vomiting or light-headed due to heavy bleeding Last Documented On 9 10:20AM ; [facility] Instructions for patient ER if bleeding through reg. sized pad/tampon < 1 hour Last Documented On 9 10:20AM ; [facility] Instructions for patient : p atient is to keep a menstrual diary to help with further evaluation and treatment Last Documented On 9 10:20AM ; [facility]
--- OUTSIDE RECORDS SUMMARY | 2023-12-02 00:07 | XMS_ITS | Clinical Summary ---
Author Name Unknown Address [address] [place] [address] Phone Organization [facility] Address [address] [place] [address] Phone Care Team Providers Care Ground Services Instructor Name Role Phone LISANDRO DENISE, RAÚL C Unavailable [phone] MADDY DENISE, [facility] Primary Care Provider [phone] Reason for Visit and Chief Complaint CHART UPDATE Problems Includes: Problems addressed during this encounter and other active Problems All Visits Onset Date Resolved Date Provider Condition S tatus Hypothyroidism 03/30/2018 DARNELL FERGUSON RN [facility] Active Plan of Treatment Pending Tests Order Diagnosis Results Due Ordering P rovider Lab HCG, TOTAL, QN 10/04/18 DARNELL PADILLA RN [facility] Assessments Includes: Assessments from this encounter No Assessments Recorded Medical Equipment - Implanted Devices Includes: Current Devices No Medical Equipment Recorded Medications Includes: Medications discussed during this encounter and other current Medications Current Medications (continue as prescribed) Meclizine HCl 25MG Oral Tablet 09/21/2018 Provider: Diagnosis:
--- OUTSIDE RECORDS SUMMARY | 2023-12-02 00:08 | XMS_ITS | Clinical Summary ---
Author Name Unknown Address [address] [place] [address] Phone Organization [facility] Address [address] [place] [address] Phone Care Team Providers Care Herbologist Name Role Phone LISANDRO DENISE, RAÚL C Unavailable [phone] MADDY DENISE, [facility] Primary Care Provider [phone] Reason for Visit and Chief Complaint The Chief Complaint is: 3 month med check--Xulane patch. Pt hasn't used the patch in the last 2 months because the pharmacy only let her have 1 fill, after that they told her she didn't have any refills. She would like to get back on it. Pt states the patch did help her while she was using it. 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 Patient understands that smoking increases the risk of serious side effects with any steroid-based contraceptive method Last Documented On 9 1:35PM ; [facility] Assessments Includes: Assessm
--- OUTSIDE RECORDS SUMMARY | 2023-12-02 00:08 | XMS_ITS | Clinical Summary ---
Author Name Unknown Address [address] [place] [address] Phone Organization [facility] Address [address] [place] [address] Phone Care Team Providers Care Field Operations Technician Name Role Phone LISANDRO DENISE, RAÚL C Unavailable [phone] MADDY DENISE, [facility] Primary Care Provider [phone] Reason for Visit and Chief Complaint The Chief Complaint is: SAB, still bleeding, some cramps Problems Includes: Problems addressed during this encounter and other active Problems All Visits Onset Date Resolved Date Provider Condition S tatus Hypothyroidism 03/30/2018 DARNELL FERGUSON RN [facility] Active Plan of Treatment No Plan of Treatment Recorded Assessments Includes: Assessments from this encounter Findings - with threatened in first trimester - Last Documented On 09/05/2018 10:25AM ; [facility] Medical Equipment - Implanted Devices Includes: Current Devices No Medical Equipment Recorded Medications Includes: Medications discussed during this encounter and other current Medications Discontinued / Stopped on this date on 03/30/2018 Levothyroxine Sodium 75MCG Oral Tablet Pr ovider: Diagnosis:
--- OUTSIDE RECORDS SUMMARY | 2023-12-02 00:08 | XMS_ITS | Clinical Summary ---
Author Name Unknown Address [address] [place] [address] Phone Organization [facility] Address [address] [place] [address] Phone Care Team Providers Care Mine Car Repairer Name Role Phone LISANDRO DENISE, RAÚL C Unavailable [phone] MADDY DENISE, [facility] Primary Care Provider [phone] Reason for Visit and Chief Complaint * PHONE CALL Problems Includes: Problems addressed during this encounter and other active Problems All Visits Onset Date Resolved Date Provider Condition S tatus Hypothyroidism 03/30/2018 DARNELL FERGUSON RN [facility] Active Plan of Treatment No Plan of Treatment Recorded Assessments Includes: Assessments from this encounter No Assessments Recorded Medical Equipment - Implanted Devices Includes: Current Devices No Medical Equipment Recorded Medications Includes: Medications discussed during this encounter and other current Medications Current Medications (continue as prescribed) Meclizine HCl 25MG Oral Tablet 09/21/2018 Provider: Diagnosis: Albuterol Sulfate (2.5 MG/3M L)0.083% Inhalation Nebulization solution 03/30/2018
[2023-12-02 01:04] LABS: Basophils Percent Auto 0.2 % (0.2-1.2); Eosinophils Percent Auto 0.2 % (0-4.4); Hematocrit 35.7 % (37.0-47.0); Hemoglobin 12.1 g/dL (12.0-15.0); Immature Granulocyte Absolute 0.04 K/mm3 (0.00-0.031); Immature Granulocyte Percent A 0.3 % (0-0.5); Lymphocytes Absolute Auto 2.75 K/mm3 (0.9-3.2); Mean Corpuscular HGB Conc 33.9 g/dl (32-36); Mean Corpuscular Hemoglobin 28.9 pg (26-34); Mean Corpuscular Volume 85.2 fl (80-100); Mean Platelet Volume 11.6 fl (7.4-10.4); Monocytes Absolute Auto 0.8 K/mm3 (0.1-0.6); Monocytes Percent Auto 7.1 % (2.6-8.5); Neutrophils Absolute Auto 7.8 K/mm3 (1.3-6.7); Neutrophils Percent Auto 68.2 % (45.5-73.1); Platelet Count Result 244 k/mm3 (150-375); Red Blood Count 4.19 M/mm3 (4.2-5.4); Red Cell Distribution Width 14.5 % (11.5-14.5); White Blood Count 11.5 K/mm3 (4.5-10.0)
[2023-12-02] MEDS: miSOPROStol 25 MCG TABLET 50 MCG VAGINAL (01:26)
[2023-12-02 01:36] LABS: Rapid Plasma Reagin Non-Reactive (NonReactive)
[2023-12-02 01:54] LABS: HIV 1/2 Ab P24 Ag Result Negative (Negative)
--- NOTE | 2023-12-02 02:14 | LDADM ---
This patient, Jane Bhatt, was admitted to Labor/Delivery/Recovery 104 on 12/02/23 at 00:00. Plans for labor, pain management and were discussed with patient. Patient/family oriented to hospital policies and general routines including ID bracelet, bed and alarms, visiting hours, pain management, procedures, bathroom and other care routines, personal items, smoking policy, room service/diet and guest tray routines, infant security routines, and visiting hours. Patient/Family are encouraged to report perceived risks to care and to ask questions if they do not understand what they are told or what they should do. See OBIX for further documentation.
[2023-12-02] MEDS: OXYTOCIN 30 UNITS/NS 500 ML 30 UNITS/500 ML BAG IV CONT (07:40)
[2023-12-02] MEDS: LACTATED RINGERS 1,000 ML 125 ML IV CONT ×3 (07:40→18:56)
--- NOTE | 2023-12-02 07:57 | WPDHPUPDATE1 ---
History and Physical Update Update Date/Time: 12/02/23 07:57 28-year-old multiparous female with 3 previous miscarriages who presents for induction of labor. Reassuring status. 1 cm, thick, high. Cytotec administered, followed by Pitocin. History and Physical has been reviewed, including an updated exam of the patient. There are NO changes in the patient's condition. Risks, benefits, and alternatives have been discussed and questions answered. Patient agrees to proceed with procedure.
--- NOTE | 2023-12-02 12:39 | PM.OBPNVD ---
OB - PN: Subj Subjective Date/time seen: 12/02/23 12:39 Interval history: Artificial rupture membranes -clear fluid, reassuring heart tones IUPC placed. OB - PN: Obj Data Labs 12/02/23 00:58 Labs: Laboratory Results - last 24 hr 12/02/23 00:58 WBC 11.5 H RBC 4.19 L Hgb 12.1 Hct 35.7 L MCV 85.2 MCH 28.9 MCHC 33.9 RDW 14.5 Plt Count 244 MPV 11.6 H Immature Gran % (Auto) 0.3 Neut % (Auto) 68.2 Lymph % (Auto) 24.0 [place] % (Auto) 7.1 Eos % (Auto) 0.2 Baso % (Auto) 0.2 Lymph # (Auto) 2.75 [place] # (Auto) 0.8 H Eos # (Auto) 0.0 Baso # (Auto) 0.0 Abs Immat Gran (auto) 0.04 H Absolute Neuts (auto) 7.8 H Absolute Nucleated RBC 0.000 Nucleated RBC % 0.0 RPR Non-reactive HIV 1&2 Ab/P24 Ag 4thGn Negative Blood Type AB Positive Antibody Screen Negative OB - PN A/P Time Spent With Patient Time: Total time spent is greater than 50% in coordination of care (as documented) at patient's floor/unit and/or counseling patient:
[2023-12-02] MEDS: fentaNYL CITRATE INJ (*CRX) 100 MCG/2 ML VIAL 50 MCG IV PUSH ×2 (16:12→18:10)
[2023-12-02] MEDS: ONDANSETRON INJ 4 MG/2 ML VIAL IV PUSH (18:19)
[2023-12-02] MEDS: ACETAMINOPHEN 500 MG TABLET 1000 MG PO (18:45)
[2023-12-02] MEDS: SODIUM CHLORIDE 0.9% IV 300 ML 600 ML I-UTERINE (21:20)
[2023-12-02] MEDS: lamoTRIgine 100 MG, lamoTRIgine 50 MG 150 MG PO (23:13)
[2023-12-03] VITALS (83 sets, daily range): BP systolic 84–139; BP diastolic 46–96; PULSE 64–135; RESP 15–18; TEMP 36.4–36.9; O2SAT 93–100
[2023-12-03] MEDS: LACTATED RINGERS 1,000 ML 125 ML IV CONT (00:32)
[2023-12-03] MEDS: DEXTROSE 5%/LACTATED RINGERS 1,000 ML 125 ML IV CONT (02:13)
[2023-12-03] MEDS: ONDANSETRON INJ 4 MG/2 ML VIAL IV PUSH (02:16)
[2023-12-03] MEDS: ACETAMINOPHEN 500 MG TABLET 1000 MG PO (02:51)
--- NOTE | 2023-12-03 03:18 | PM.IMHP ---
H&P: HPI History of Present Illness Date/Time: 12/03/23 03:18 Chief Complaint: termPregnancy Narrative: 28-year-old multiparous female with 1st term presents for induction of labor. After approximately 18 hours of labor induction and monitoring the heart tones became nonreassuring . There is minimal variability the heart rate tracing at this time. We are moving quickly to perform delivery. The patient understands the details of the procedure. The procedure has been explained in detail. She understands the risks. She understands that injuries may occur that result in hospitalization, more surgery, and severe illness. She understands risk of hemorrhage and infection. She denies any chest pain or shortness of breath. She denies any nausea, vomiting, fever, chills. Review of Systems Review of Systems: All systems reviewed & are unremarkable except as noted in HPI and below Constitutional: Constitutional: Denies chills, Denies fatigue, Denies fever(s) and Denies weakness Eyes: Eyes: Denies blurry vision, Denies change in vision, Denies loss of peripheral vision, Denies loss of vision, Denies other visual disturbances and Denies eye pain ENT: Denies vertigo, Denies dizziness, Denies hearing loss, Denies mouth pain, Denies nasal obstruction, Denies neck mass and Denies neck pain Cardiovascular: Cardiovascular: Denies chest pain, Denies diaphoresis, Denies syncope, Denies leg edema and Denies dyspnea Respiratory: Respiratory: Denies chest congestion, Denies cough, Denies hemoptysis, Denies dyspnea and Denies wheezing Gastrointestinal: Gastrointestinal: Denies abdominal pain, Denies constipation, Denies diarrhea, Denies nausea and Denies vomiting Genitourinary: Genitourinary: Denies hematuria, Denies change in libido, Denies nocturia, Denies genital lesions, Denies flank pain and Denies urinary urgency Musculoskeletal: Musculoskeletal: Denies abnormal gait, Denies back pain, Denies myalgias, Denies arthralgias, Denies joint swelling, Denies muscle weakness and Denies neck pain Integumentary/Breasts: Skin/Breast: Denies swelling, Denies breast pain, Denies breast mass, Denies dry skin, Denies nipple discharge, Denies unusual bruising and Denies jaundice Neurologic: Denies Neuro-related abnormal movements, Denies Abnormal speech present, Denies abnormal gait, Denies behavioral changes, Denies confusion, Denies vertigo, Denies dizziness, Denies syncope, Denies loss of vision, Denies memory loss, Denies convulsions and Denies weakness Psychiatric: Psychiatric: Denies abnormal sleep pattern, Denies behavioral changes, Denies change in libido, Denies confusion, Denies depression, Denies anhedonia and Denies memory loss Endocrine: Endocrine: Reports no additional endocrine complaints, Denies change in libido and Denies fatigue Hematologic/Lymphatic: Hematologic/Lymphatic: Reports no additional hematologic/lymphatic complaints Allergic/Immunologic: Allergic/Immunologic: Reports no additional allergic/immunologic complaints and Denies wheezing PMFSH Past Medical History Medical History (Updated 12/03/23 @ 03:20 by Patricio Aponte MD) Asthma Hypothyroidism UTI (urinary tract infection) Surgical History Surgical History History of tonsillectomy Family History Family History (Updated 11/30/23 @ 14:31 by Justa Vera RN) Other No pertinent family history Social History Social History Smoking status: Never smoker Alcohol intake: current Alcohol use details: rare Substance use: never Do You Feel Safe in your Home?: Yes Lack of Transportation: No Lack of Food: Never True Current Housing: I Have Housing Concerned About Future Housing: No Difficulty Paying Gas/Electric Bills: No Difficulty Paying for Meds: No Currently Unemployed: No Education: High School Di
--- NOTE | 2023-12-03 03:21 | WPDHPUPDATE1 ---
History and Physical Update Update Date/Time: 12/03/23 03:21 History and Physical has been reviewed, including an updated exam of the patient. There are NO changes in the patient's condition. Risks, benefits, and alternatives have been discussed and questions answered. Patient agrees to proceed with procedure.
[2023-12-03] MEDS: FAMOTIDINE 20 MG/2 ML VIAL IV PUSH (03:25)
[2023-12-03] MEDS: AZITHROMYCIN 500 MG/NS 250 ML 500 MG/250 ML BAG 250 MG IVPB (03:30)
--- NOTE | 2023-12-03 04:08 | W.PM.OBCSD ---
OB - Delivery Note Procedure Delivery date: 12/03/23 Pre-op diagnosis: Non-Reassuring Status Post-op Diagnosis: Same Induction method: AROM, Per Misoprostol Protocol and Per Pitocin Protocol Delivery monitor: External FHT and Internal Uterine Procedure Performed: Primary Surgeon: Patricio Aponte MD Anesthesia type: Epidural Description of Procedure/Findings: The patient was taken the operating room.? She was prepped and draped in dorsal supine position with a leftward tilt.? This was done after spinal anesthetic was applied.? A low-transverse skin incision was made and carried down till of the fascia with the knife.? The fascial incision was made with the knife.? The fascial incision was extended laterally with Wesley scissors.? The fascia was tented upward superiorly and inferiorly the rectus muscles were dissected off bluntly.? The rectus muscles were the midline.? The preperitoneal fat and peritoneum were dissected open bluntly at the superior aspect of the rectus muscles.? The peritoneal incision was extended superior and inferior with good position of bladder.? The uterine incision was made with a scalpel down to the level of the amniotic cavity.? The amniotic cavity was entered bluntly.? The was delivered.? The cord was clamped and cut and the was handed off to waiting pediatric staff.? Cord bloods were obtained.? The placenta was removed manually.? The uterus was exteriorized.? The uterus was cleared of all clots, debris and membranes.? The uterus was closed in 0 Vicryl running lock fashion.? An imbricating over a was placed along the incision line as well.? The uterus was returned to the abdomen.? The gutters were cleared of all clots and debris.? The fascia was closed with 0 Vicryl running fashion.? The subcutaneous tissue was irrigated pinpoint bleeders were cauterized.? The skin was closed with subcuticular absorbable rita.? The skin incision line was covered with glue.? The patient tolerated the procedure well.? She has taken recovery room in stable condition.? Sponge lap and needle counts were correct x2.? [place] Baby Date of : 12/03/23 Gestational Age by Date: 39
--- NOTE | 2023-12-03 05:23 | PC.NURSE ---
FHT's in OR - baseline 150 with minimal variability. Copy of strip in chart
[2023-12-03] MEDS: ceFAZolin 2 GM/D5W 50 ML 2 GM/50 ML BAG IVPB (05:27)
[2023-12-03] MEDS: fentaNYL CITRATE INJ (*CRX) 100 MCG/2 ML VIAL 25 MCG IV PUSH ×2 (05:55→06:57)
[2023-12-03] MEDS: OXYTOCIN 30 UNITS/NS 500 ML 30 UNITS/500 ML BAG 125 UNITS IV CONT (06:41)
--- NOTE | 2023-12-03 07:07 | PC.NURSE ---
Patient transferred to post room #285 via stretcher. Support person present. Oriented to unit, room, information board, rooming in, admission packet and security measures. Patient verbalizes understanding.
--- NOTE | 2023-12-03 08:55 | PC.NURSE ---
Introductions were made, then consulted with patient to assess needs related to . Mother led the conversation with her?plans to feed?her and the?experience so far. Nipple shield provided to mother due to bilateral inverted nipples. Reviewed good handwashing, cleaning the nipple shield and the appropriate way to apply and use as a tool. Discussed with mom the nipple shield precautions, possible complications associated with the risks and benefits. Reviewed practicing with a nipple shield, then without and how to protect the milk supply and production. Mom and baby guide referred to as a resource for outpatient services, community resources and when to call a provider. Mom voiced understanding of the importance of hand expression, nipple stimulation and initiating a pumping schedule if continues to nurse with the shield. Reported to the Primary RN.Encouraged understanding of the benefits of skin to skin (demonstrating unwrapping and placing upright on her chest), stimulating with massage touch, changing positions to encourage wakefulness, how to watch for early feeding cues, responsive feeding, feeding on demand (aiming for 8-12 times in 24 hours, about every 2-3 hours), milk production, building/maintaining a milk supply, duration of feeding, signs of adequate intake/output and how to record on the feeding sheet. Mother works well with her infant with encouragement and education. Reviewed positioning and ear, shoulder, hip alignment, supporting the breast to facilitate a deep latch, asymmetrical latch (off-center), leading with the chin with a big, open, wide gape and body close to mother. Infant latched optimally with nipple shield to the right breast in cross cradle position. Education given to the mother of how to visualize the suckling (with good rocking jaw motion), swallows (dropping of the lower jaw) and how to listen for drinking at the breast (the ka sound). was able to maintain latch without pain to mother protecting the nipple with optimal positioning and latching. Reviewed comfort measures of healing with a warm, wet washcloth to rinse breast, then leave open to air-dry, good handwashing when or touching the breast/nipples to prevent infection. Mother voiced understanding of skin to skin, stimulating with massage touch, responsive feedings, hand expressed colostrum, talking to infant to encourage if it has been 2 -2.5 hours since the start of the last , to call if infant does not latch, or if there is discomfort with . Resources used for education were facilitated with the [visual educational handouts/ tool/mom and baby guide], Inpatient/outpatient resources provided with business card, feeding sheet, name written on the communication board, and the mom/baby guide. Parents voiced understanding of information, demonstrated learning and will call if there is a request for assistance. Reported to the Primary RN.
--- NOTE | 2023-12-03 08:55 | PC.NURSE ---
Introductions were made, then consulted with patient to assess needs related to . Mother led the conversation with her?plans to feed?her and the?experience so far. Encouraged understanding of the benefits of skin to skin (demonstrating unwrapping infant and placing upright on her chest), stimulating with massage touch, changing positions to encourage wakefulness, how to watch for early feeding cues, responsive feeding, feeding on demand (aiming for 8-12 times in 24 hours, about every 2-3 hours), milk production, building/maintaining a milk supply, duration of feeding, signs of adequate intake/output and how to record on the feeding sheet. Mother works well with her infant with encouragement and education. Reviewed positioning and ear, shoulder, hip alignment, supporting the breast to facilitate a deep latch, asymmetrical latch (off-center), leading with the chin with a big, open, wide gape and body close to mother. Infant latched optimally to the right breast with nipple shield in place in cross cradle position. Education given to the mother of how to visualize the suckling (with good rocking jaw motion), swallows (dropping of the lower jaw) and how to listen for drinking at the breast (the ka sound). was able to maintain latch without pain to mother protecting the nipple with optimal positioning and latching. Reviewed comfort measures of healing with a warm, wet washcloth to rinse breast, then leave open to air-dry, good handwashing when or touching the breast/nipples to prevent infection. Mother voiced understanding of skin to skin, stimulating with massage touch, responsive feedings, hand expressed colostrum, talking to to encourage if it has been 2 -2.5 hours since the start of the last , to call if does not latch, or if there is discomfort with . Nipple shield provided to mother due to infants inability to draw in mothers nipple r/t her nipple inversion. Reviewed good handwashing, cleaning the nipple shield and the appropriate way to apply and use as a tool. Discussed with mom the nipple shield precautions, possible complications associated with the risks and benefits. Reviewed practicing with a nipple shield, then without and how to protect the milk supply and production. Mom voiced understanding of the importance of hand expression, nipple stimulation and initiating a pumping schedule if continues to nurse with the shield. Reported to the Primary RN. Communication board updated with this RN name and telephone number. Reported to the Primary RN.
[2023-12-03] MEDS: KETOROLAC 15 MG/ML VIAL (*BKC) IV PUSH ×3 (08:57→21:51)
[2023-12-03] MEDS: LIDOCAINE 5% PATCH 1 PATCH TRANSDERM (08:57)
[2023-12-03] MEDS: DOCUSATE SODIUM 100 MG CAPSULE PO (08:58)
[2023-12-03] MEDS: ACETAMINOPHEN 325 MG TABLET 650 MG PO ×3 (08:58→21:52)
[2023-12-03] MEDS: SIMETHICONE 80 MG TAB.CHEW PO ×2 (08:58→15:34)
[2023-12-03] MEDS: MULTIVIT/MIN/PREN/FOL AC/IRON TABLET 1 TAB PO (08:58)
[2023-12-03] MEDS: DEXTROSE 5%/0.45% SOD CHL 1,000 ML 125 ML IV CONT (10:42)
[2023-12-03] MEDS: LANOLIN (LANSINOH) 7.5 GM CREAM 1 APPLIC TOPICAL (15:34)
--- NOTE | 2023-12-03 16:40 | PC.NURSE ---
Called to bedside to assist with latching infant. latched on the left side optimally with nipple shield in place in football position. Maximum assistance provided.
[2023-12-03] MEDS: lamoTRIgine 100 MG, lamoTRIgine 50 MG 150 MG PO (21:52)
[2023-12-04 00:30] VITALS: BP 114/64; PULSE 91; RESP 18; TEMP 36.7
[2023-12-04] MEDS: KETOROLAC 15 MG/ML VIAL (*BKC) IV PUSH (03:39)
[2023-12-04] MEDS: ACETAMINOPHEN 325 MG TABLET 650 MG PO ×4 (03:40→22:13)
[2023-12-04 04:38] LABS: Basophils Percent Auto 0.3 % (0.2-1.2); Eosinophils Absolute Auto 0.1 K/mm3 (0-0.3); Eosinophils Percent Auto 0.4 % (0-4.4); Hematocrit 29.5 % (37.0-47.0); Hemoglobin 9.7 g/dL (12.0-15.0); Immature Granulocyte Absolute 0.11 K/mm3 (0.00-0.031); Immature Granulocyte Percent A 0.8 % (0-0.5); Lymphocytes Percent Auto 13.4 % (18.3-44.2); Mean Corpuscular HGB Conc 32.9 g/dl (32-36); Mean Corpuscular Hemoglobin 28.8 pg (26-34); Mean Corpuscular Volume 87.5 fl (80-100); Mean Platelet Volume 11.8 fl (7.4-10.4); Monocytes Percent Auto 6.8 % (2.6-8.5); Neutrophils Absolute Auto 11.1 K/mm3 (1.3-6.7); Neutrophils Percent Auto 78.3 % (45.5-73.1); Platelet Count Result 178 k/mm3 (150-375); Red Blood Count 3.37 M/mm3 (4.2-5.4); Red Cell Distribution Width 14.9 % (11.5-14.5); White Blood Count 14.2 K/mm3 (4.5-10.0)
--- NOTE | 2023-12-04 08:09 | P.PNOB_ITS ---
OB - PN: Subj Subjective Date/time seen: 12/04/23 08:09 Interval history: Artificial rupture membranes -clear fluid, reassuring heart tones IUPC placed. Patient comments: no complaints, pain well controlled, tolerating diet and flatus present OB - PN: Obj Data Labs 12/04/23 03:39 Labs: Laboratory Results - last 24 hr 12/04/23 03:39 WBC 14.2 H RBC 3.37 L Hgb 9.7 L Hct 29.5 L MCV 87.5 MCH 28.8 MCHC 32.9 RDW 14.9 H Plt Count 178 MPV 11.8 H Immature Gran % (Auto) 0.8 H Neut % (Auto) 78.3 H Lymph % (Auto) 13.4 L [place] % (Auto) 6.8 Eos % (Auto) 0.4 Baso % (Auto) 0.3 Lymph # (Auto) 1.90 [place] # (Auto) 1.0 H Eos # (Auto) 0.1 Baso # (Auto) 0.0 Abs Immat Gran (auto) 0.11 H Absolute Neuts (auto) 11.1 H Absolute Nucleated RBC 0.000 Nucleated RBC % 0.0 OB - PN A/P Plan day: 1 Comments: Post Op LTCS - no problems, routine recovery Time Spent With Patient Time: Total time spent is greater than 50% in coordination of care (as documented) at patient's floor/unit and/or counseling patient: Exam Const: General: cooperative, healthy appearing, comfortable and no acute distress Resp: Auscultation: no crackles, no rales, no rhonchi and no wheezes Cardio: Rhythm: regular rhythm Heart sounds: no click and no murmurs GI: Inspection: non-distended Auscultation: normal bowel sounds Extrem: General: normal to inspection, no pedal edema and no calf tenderness
[2023-12-04] MEDS: DOCUSATE SODIUM 100 MG CAPSULE PO ×2 (08:10→16:26)
[2023-12-04] MEDS: MULTIVIT/MIN/PREN/FOL AC/IRON TABLET 1 TAB PO (08:10)
[2023-12-04] MEDS: POLYSACCHARIDE IRON COMPLEX 150 MG CAPSULE PO ×2 (08:10→16:26)
[2023-12-04] MEDS: SIMETHICONE 80 MG TAB.CHEW PO ×2 (08:10→16:26)
[2023-12-04 08:15] VITALS: BP 115/78; PULSE 77; RESP 16; TEMP 36.4; O2SAT 100
[2023-12-04] MEDS: IBUPROFEN 600 MG TABLET PO ×3 (09:39→22:14)
--- NOTE | 2023-12-04 10:25 | WPDANLDPN2 ---
Anes-Prog Note L&D Date/Time: 12/04/23 10:25 Comfortable throughout: labor and section Neuraxial method: epidural Epidural/Spinal procedure site: clean & non-tender Neuro status: Neuro function grossly intact. Cardiovascular status: normal Respiratory status: normal Airway patency: baseline Mental status: baseline Post-Op hydration status: normal Vital Signs: Last Vital Signs Temp 98.1 F 12/04/23 00:30 Pulse 91 12/04/23 00:30 Resp 18 12/04/23 00:30 BP 114/64 12/04/23 00:30 Pulse Ox 100 12/03/23 19:17 O2 Del Method Room Air 12/03/23 06:00 Pain score (VAS): 5 I/O: Intake & Output 12/03/23 12/04/23 12/04/23 23:59 07:59 15:59 Intake Total 1000 Output Total 400 Balance 600 Post-procedural complaints: pruritis severe, treatment refractory Patient feedback: Patient satisfied with anesthetic care.
--- NOTE | 2023-12-04 10:26 | WPDANLDNPN2 ---
Anes-Prog Note L&D-Neuraxial Date/Time: 12/04/23 10:26 Neuraxial medications: epidural PF morphine Opiod-related complaints: pruritis severe, treatment refractory Patient feedback: Patient satisfied with post-operative pain management.
[2023-12-04] MEDS: lamoTRIgine 100 MG, lamoTRIgine 50 MG 150 MG PO (22:13)
[2023-12-04 22:54] VITALS: BP 129/77; PULSE 84; RESP 18; TEMP 36.8
[2023-12-05] MEDS: IBUPROFEN 600 MG TABLET PO ×3 (04:45→17:18)
[2023-12-05] MEDS: ACETAMINOPHEN 325 MG TABLET 650 MG PO ×3 (04:45→17:18)
[2023-12-05 07:53] VITALS: BP 98/58; PULSE 75; RESP 18; TEMP 36.5; O2SAT 100
[2023-12-05] MEDS: POLYSACCHARIDE IRON COMPLEX 150 MG CAPSULE PO ×2 (08:20→17:18)
[2023-12-05] MEDS: MULTIVIT/MIN/PREN/FOL AC/IRON TABLET 1 TAB PO (08:21)
[2023-12-05] MEDS: SIMETHICONE 80 MG TAB.CHEW PO ×2 (08:21→17:18)
[2023-12-05] MEDS: DOCUSATE SODIUM 100 MG CAPSULE PO ×2 (08:21→17:18)
--- NOTE | 2023-12-05 10:16 | PM.OBPNVD ---
OB - PN: Subj Subjective Date/time seen: 12/05/23 10:16 Interval history: Artificial rupture membranes -clear fluid, reassuring heart tones IUPC placed. Patient comments: no complaints, pain well controlled, incisional pain, tolerating diet and flatus present OB - PN: Obj Data Labs 12/04/23 03:39 OB - PN A/P Plan day: 2 Plan: routine care Comments: POD#2 LTCS - no problems, Time Spent With Patient Time: Total time spent is greater than 50% in coordination of care (as documented) at patient's floor/unit and/or counseling patient: Exam Const: General: comfortable, no acute distress and alert Resp: Effort & Inspection: normal respiratory effort Auscultation: no crackles, no rales and no rhonchi Cardio: Rate: regular rate Heart sounds: no click, no murmurs and no rubs GI: Inspection: non-distended Auscultation: normal bowel sounds Other: Incision - CDI Extrem: General: normal to inspection, no pedal edema and no calf tenderness
[2023-12-05 16:50] VITALS: BP 111/74; PULSE 74; RESP 16; TEMP 36.8; O2SAT 99
[2023-12-05 18:29] LABS: Add Urine Microscopic? YES; Appearance Urine Clear (Clear); Bacteria Urine None Seen /hpf; Bilirubin Urine Negative (Negative); Blood Urine 2+ (Negative); Color Urine Yellow (Yellow); Glucose Urine UA Negative (Negative); Ketones Urine Negative (Negative); Leukocyte Esterase Ur 1+ LEU/UL (Negative); Nitrate Urine Negative (Negative); Non Pathogenic Casts 0-2; Protein Urine Negative (Negative); Specific Grav Ur 1.012 (1.001-1.035); Squamous Epithelial Cell Urine Occasional /hpf (Few); Urobilinogen Urine 0.2 mg/dL (<2.0); pH Urine 6.5 (5.0-9.0)
[2023-12-05] MEDS: cefTRIAXone 1 GM VIAL IM (18:47)
[2023-12-05 20:17] VITALS: BP 131/75; PULSE 88; RESP 18; TEMP 36.8; O2SAT 100
[2023-12-05] MEDS: NITROFURANTOIN MONOHYD MACROCR 100 MG CAP 500 MG PO (21:29)
[2023-12-05] MEDS: lamoTRIgine 100 MG, lamoTRIgine 50 MG 150 MG PO (21:29)
[2023-12-06] MEDS: IBUPROFEN 600 MG TABLET PO ×4 (00:17→19:44)
[2023-12-06] MEDS: ACETAMINOPHEN 325 MG TABLET 650 MG PO ×3 (00:17→12:12)
[2023-12-06] MEDS: ONDANSETRON HCL ODT 4 MG TABLET PO ×3 (01:06→21:57)
[2023-12-06] MEDS: HYDROcodone/acetaminophen (*CRX) 5-325 MG TABLET 1 TAB PO ×2 (01:52→02:54)
[2023-12-06 08:00] VITALS: BP 107/66; PULSE 74; RESP 16; TEMP 36.5; O2SAT 99
--- NOTE | 2023-12-06 08:28 | PM.OBPNVD ---
OB - PN: Subj Subjective Date/time seen: 12/06/23 08:28 Patient reporting lower abdominal pressure, pain, flank pain. History kidney stones. Increasing malaise. Nausea. feels elevated body temperature. OB - PN: Obj Data Labs 12/04/23 03:39 Labs: Laboratory Results - last 24 hr 12/05/23 18:00 Urine Color Yellow Urine Appearance Clear Urine pH 6.5 Ur Specific [place] 1.012 Urine Protein Negative Urine Glucose (UA) Negative Urine Ketones Negative Ur Blood (Man) 2+ H Urine Nitrate Negative Urine Bilirubin Negative Urine Urobilinogen 0.2 Leukocyte Esterase Rfl 1+ H Urine RBC 11-20 H Urine WBC 6-10 H Ur Squamous Epith Cells Occasional Urine Bacteria None seen Urine Casts 0-2 OB - PN A/P Assessment and Plan (1) Postoperative abdominal pain: Code(s): R10.9 - Unspecified abdominal pain; G89.18 - Other acute postprocedural pain Status: Acute (2) Malaise: Code(s): R53.81 - Other malaise Status: Acute (3) Flushes: Code(s): R23.2 - Flushing Status: Acute (4) delivery delivered: Code(s): O82 - Encounter for delivery without indication Status: Acute Plan Comments: CT abdomen pelvis, CBC, continue observation,consider IV antibiotics. Time Spent With Patient Time: Total time spent is greater than 50% in coordination of care (as documented) at patient's floor/unit and/or counseling patient: Exam Const: General: comfortable, no acute distress and alert Resp: Effort & Inspection: normal respiratory effort Auscultation: no crackles, no rales and no rhonchi Cardio: Rate: regular rate Heart sounds: no click, no murmurs and no rubs GI: Inspection: non-distended GI Palp: No Tenderness to palpation present (GI) Auscultation: normal bowel sounds Other: Incision - CDI Extrem: General: normal to inspection, no pedal edema and no calf tenderness
--- NOTE | 2023-12-06 09:00 | PC.NURSE ---
Mother states that she was up all night vomiting and was unable to breastfeed infant or use the breast pump. Mother did pump this morning and got 30cc of breastmilk. Encouraged mother to pump and/or nurse infant every 2-3 hours when she is well. Mother knows the importance of being consistent with feeding/pumping for her milk supply. Latch assist was provided r/t inverted nipples.
[2023-12-06 09:24] LABS: Basophils Percent Auto 0.4 % (0.2-1.2); Eosinophils Absolute Auto 0.2 K/mm3 (0-0.3); Eosinophils Percent Auto 1.5 % (0-4.4); Hematocrit 33.4 % (37.0-47.0); Hemoglobin 10.9 g/dL (12.0-15.0); Immature Granulocyte Absolute 0.08 K/mm3 (0.00-0.031); Immature Granulocyte Percent A 0.7 % (0-0.5); Lymphocytes Absolute Auto 2.13 K/mm3 (0.9-3.2); Lymphocytes Percent Auto 19.4 % (18.3-44.2); Mean Corpuscular HGB Conc 32.6 g/dl (32-36); Mean Corpuscular Hemoglobin 28.7 pg (26-34); Mean Corpuscular Volume 87.9 fl (80-100); Mean Platelet Volume 10.9 fl (7.4-10.4); Monocytes Absolute Auto 0.5 K/mm3 (0.1-0.6); Monocytes Percent Auto 4.7 % (2.6-8.5); Neutrophils Percent Auto 73.3 % (45.5-73.1); Platelet Count Result 267 k/mm3 (150-375); Red Cell Distribution Width 15.2 % (11.5-14.5)
[2023-12-06 09:39] LABS: Estimated CRCL calculation 96 ml/min; Estimated Glomerular Filt Rate > 60
[2023-12-06] MEDS: SIMETHICONE 80 MG TAB.CHEW PO ×3 (10:21→17:11)
[2023-12-06] MEDS: POLYSACCHARIDE IRON COMPLEX 150 MG CAPSULE PO ×2 (10:21→17:11)
[2023-12-06] MEDS: MULTIVIT/MIN/PREN/FOL AC/IRON TABLET 1 TAB PO (10:21)
[2023-12-06] MEDS: NITROFURANTOIN MONOHYD MACROCR 100 MG CAP 500 MG PO ×2 (10:23→21:57)
[2023-12-06 12:47] LABS: Add Urine Microscopic? YES; Appearance Urine Clear (Clear); Bacteria Urine None Seen /hpf; Bilirubin Urine Negative (Negative); Blood Urine 3+ (Negative); Color Urine Yellow (Yellow); Glucose Urine UA Negative (Negative); Ketones Urine Negative (Negative); Leukocyte Esterase Ur 1+ LEU/UL (Negative); Nitrate Urine Negative (Negative); Non Pathogenic Casts 0-2; Protein Urine Negative (Negative); RBC Urine 21-50 /hpf (0-2); Squamous Epithelial Cell Urine None Seen /hpf (Few); Urobilinogen Urine 0.2 mg/dL (<2.0); pH Urine 6.5 (5.0-9.0)
[2023-12-06] MEDS: HYDROcodone/acetaminophen (*CRX) 10-325 MG TABLET 1 TAB PO ×2 (15:16→19:44)
[2023-12-06] MEDS: DOCUSATE SODIUM 100 MG CAPSULE PO (17:11)
[2023-12-06 19:47] VITALS: BP 123/89; PULSE 74; RESP 18; TEMP 37.2; O2SAT 100
[2023-12-06] MEDS: lamoTRIgine 100 MG, lamoTRIgine 50 MG 150 MG PO (21:56)
[2023-12-07] MEDS: HYDROcodone/acetaminophen (*CRX) 10-325 MG TABLET 1 TAB PO ×2 (02:25→09:00)
[2023-12-07] MEDS: ONDANSETRON HCL ODT 4 MG TABLET PO ×3 (04:27→17:53)
[2023-12-07] MEDS: IBUPROFEN 600 MG TABLET PO ×3 (04:27→17:55)
[2023-12-07 07:40] VITALS: BP 112/79; PULSE 71; RESP 18; TEMP 36.3; O2SAT 98
--- NOTE | 2023-12-07 08:37 | PM.OBPNVD ---
OB - PN: Subj Subjective Date/time seen: 12/07/23 08:37 Interval history: POD#4 s/p PLTCS for gestational HTN Intermittent headache, self resolving; does not seem like spinal headache as it is not positional Some lower abdominal pain, improved from yesterday Voiding without issue, some small blood clots with urination but no retention CT scan yesterday demonstrates two small 2-3mm stones in left and right kidneys, do not appear obstructing Will switch to keflex for kidney penetration Ok to discharge home if improved pain this afternoon OB - PN: Obj Data Labs 12/06/23 09:20 12/06/23 09:37 Labs: Laboratory Results - last 24 hr 12/06/23 12/06/23 12/06/23 09:20 09:37 12:36 WBC 11.0 H RBC 3.80 L Hgb 10.9 L Hct 33.4 L MCV 87.9 MCH 28.7 MCHC 32.6 RDW 15.2 H Plt Count 267 MPV 10.9 H Immature Gran % (Auto) 0.7 H Neut % (Auto) 73.3 H Lymph % (Auto) 19.4 [place] % (Auto) 4.7 Eos % (Auto) 1.5 Baso % (Auto) 0.4 Lymph # (Auto) 2.13 [place] # (Auto) 0.5 Eos # (Auto) 0.2 Baso # (Auto) 0.0 Abs Immat Gran (auto) 0.08 H Absolute Neuts (auto) 8.0 H Absolute Nucleated RBC 0.000 Nucleated RBC % 0.0 Creatinine 0.80 Estim Creat Clear Calc 96 Estimated GFR > 60 Urine Color Yellow Urine Appearance Clear Urine pH 6.5 Ur Specific [place] 1.020 Urine Protein Negative Urine Glucose (UA) Negative Urine Ketones Negative Ur Blood (Man) 3+ H Urine Nitrate Negative Urine Bilirubin Negative Urine Urobilinogen 0.2 Ur Leukocyte Esterase 1+ H Urine RBC 21-50 H Urine WBC 11-20 H Ur Squamous Epith Cells None seen Urine Bacteria None seen Urine Casts 0-2 Imaging Radiologist's impression: Impressions Abdomen/Pelvis CT 12/06/23 09:43 IMPRESSION: 1. Thickened endometrial complex suspicious for retained products of conception. OB - PN A/P Assessment and Plan (1) delivery delivered: Code(s): O82 - Encounter for delivery without indication Status: Acute Assessment and Plan: - meeting postop milestones - incision c/d/i (2) Nephrolithiasis: Code(s): N20.0 - Calculus of kidney Status: Acute Assessment and Plan: - two small 2-3 mm stones in left and right kidneys - do not appear obstructing on CT, no hydronephrosis - continue macrobid (PCN allergic) - urine culture sent (3) Headache: Code(s): R51.9 - Headache, unspecified Status: Acute Assessment and Plan: - intermittent headache - BP well controlled - continue tylenol/ibuprofen - will add sumatriptan and fioricet Plan day: 4 Plan: routine care Comments: ok for discharge if improved this afternoon Time Spent With Patient Time: Total time spent is greater than 50% in coordination of care (as documented) at patient's floor/unit and/or counseling patient: Review of Systems Review of Systems: All systems reviewed & are unremarkable except as noted in HPI and below Exam Const: General: comfortable and no acute distress Resp: Effort & Inspection: normal respiratory effort GI: GI Palp: Yes Soft to palpation, No Tenderness to palpation present (GI) and Yes Guarding due to palpation present (GI) Other: incision c/d/i
--- NOTE | 2023-12-07 08:44 | P.PNOB_ITS ---
OB - PN: Subj Subjective Date/time seen: 12/07/23 08:44 Interval history: POD#4 s/p PLTCS for gestational HTN Intermittent headache, self resolving; does not seem like spinal headache as it is not positional Some lower abdominal pain, improved from yesterday Voiding without issue, some small blood clots with urination but no retention CT scan yesterday demonstrates two small 2-3mm stones in left and right kidneys, do not appear obstructing Will switch to keflex for kidney penetration Ok to discharge home if improved pain this afternoon Patient comments: no complaints, pain well controlled, incisional pain, tolerating diet and flatus present OB - PN: Obj Data Labs 12/06/23 09:20 12/06/23 09:37 Labs: Laboratory Results - last 24 hr 12/06/23 12/06/23 12/06/23 09:20 09:37 12:36 WBC 11.0 H RBC 3.80 L Hgb 10.9 L Hct 33.4 L MCV 87.9 MCH 28.7 MCHC 32.6 RDW 15.2 H Plt Count 267 MPV 10.9 H Immature Gran % (Auto) 0.7 H Neut % (Auto) 73.3 H Lymph % (Auto) 19.4 [place] % (Auto) 4.7 Eos % (Auto) 1.5 Baso % (Auto) 0.4 Lymph # (Auto) 2.13 [place] # (Auto) 0.5 Eos # (Auto) 0.2 Baso # (Auto) 0.0 Abs Immat Gran (auto) 0.08 H Absolute Neuts (auto) 8.0 H Absolute Nucleated RBC 0.000 Nucleated RBC % 0.0 Creatinine 0.80 Estim Creat Clear Calc 96 Estimated GFR > 60 Urine Color Yellow Urine Appearance Clear Urine pH 6.5 Ur Specific [place] 1.020 Urine Protein Negative Urine Glucose (UA) Negative Urine Ketones Negative Ur Blood (Man) 3+ H Urine Nitrate Negative Urine Bilirubin Negative Urine Urobilinogen 0.2 Ur Leukocyte Esterase 1+ H Urine RBC 21-50 H Urine WBC 11-20 H Ur Squamous Epith Cells None seen Urine Bacteria None seen Urine Casts 0-2 Imaging Radiologist's impression: Impressions Abdomen/Pelvis CT 12/06/23 09:43 IMPRESSION: 1. Thickened endometrial complex suspicious for retained products of conception. OB - PN A/P Plan day: 3 Plan: routine care, discharge home and other Comments: Incision check in one week. Given precautions Time Spent With Patient Time: Total time spent is greater than 50% in coordination of care (as documented) at patient's floor/unit and/or counseling patient: Exam Const: General: comfortable, no acute distress and alert Resp: Effort & Inspection: normal respiratory effort Auscultation: no crackles, no rales and no rhonchi Cardio: Rate: regular rate Heart sounds: no click, no murmurs and no rubs GI: Inspection: non-distended GI Palp: No Tenderness to palpation present (GI) Auscultation: normal bowel sounds Other: Incision - CDI Extrem: General: normal to inspection, no pedal edema and no calf tenderness
--- NOTE | 2023-12-07 08:45 | PM.OBDSVD ---
DS: Admitting Diagnosis Discharge Date December 07, 2023 Admitting Diagnosis term DS: Discharge Diagnosis Discharge Diagnosis (1) delivery delivered: Code(s): O82 - Encounter for delivery without indication Status: Acute OB - DS: Summary OB Procedures : None OB Procedures Intrapartum: OB Procedures: : None Peripartum Data Procedures: Procedures Operation Date: 12/03/23 03:30 Actual Procedure Side Surgeon p Section Not Applicable Patricio Aponte MD Time Spent with Patient Time attestation: Total time spent providing and/or coordinating discharge services: DS: Data Data Completed and Pending Labs on day of discharge: Labs from last 24 hours 12/06/23 12/06/23 12/06/23 12:36 09:37 09:20 WBC 11.0 H RBC 3.80 L Hgb 10.9 L Hct 33.4 L MCV 87.9 MCH 28.7 MCHC 32.6 RDW 15.2 H Plt Count 267 MPV 10.9 H Immature Gran % (Auto) 0.7 H Neut % (Auto) 73.3 H Lymph % (Auto) 19.4 [place] % (Auto) 4.7 Eos % (Auto) 1.5 Baso % (Auto) 0.4 Lymph # (Auto) 2.13 [place] # (Auto) 0.5 Eos # (Auto) 0.2 Baso # (Auto) 0.0 Abs Immat Gran (auto) 0.08 H Absolute Neuts (auto) 8.0 H Absolute Nucleated RBC 0.000 Nucleated RBC % 0.0 Creatinine 0.80 Estim Creat Clear Calc 96 Estimated GFR > 60 Urine Color Yellow Urine Appearance Clear Urine pH 6.5 Ur Specific [place] 1.020 Urine Protein Negative Urine Glucose (UA) Negative Urine Ketones Negative Ur Blood (Man) 3+ H Urine Nitrate Negative Urine Bilirubin Negative Urine Urobilinogen 0.2 Ur Leukocyte Esterase 1+ H Urine RBC 21-50 H Urine WBC 11-20 H Ur Squamous Epith Cells None seen Urine Bacteria None seen Urine Casts 0-2 Discharge Plan Discharge Discharging Clinician: Patricio Aponte Patient Disposition: Home Health Service Patient Instructions: Antibiotic Form Stand Alone Forms: General Discharge Information Follow-up/Referrals: Patricio Aponte MD [Physician] - Discharge Medications: New oxycodone-acetaminophen 5-325 mg tablet 1 tablet PO Q4H PRN (Reason: pain) Qty: 25 0RF Continued albuterol sulfate 90 mcg/actuation HFA aerosol inhaler 2 puff INHALATION Q4H PRN (Reason: Shortness Of Breath Or Wheezing) lamotrigine 100 mg tablet 150 mg PO HS PNV cmb#95-ferrous fumarate-FA [] 28 mg iron- 800 mcg Tablet 1 tablet PO DAILY quetiapine 50 mg tablet 50 mg PO DAILY PRN (Reason: Anxiety) valacyclovir [Valtrex] 500 mg Tablet 500 mg PO Q12H Date of admission: 12/02/23 00:00 Primary Care Provider: Keesha,Joanna Admitting Provider: Patricio Aponte Attending physician on admission: Patricio Aponte Condition: Stable
[2023-12-07] MEDS: NITROFURANTOIN MONOHYD MACROCR 100 MG CAP 500 MG PO (08:58)
[2023-12-07] MEDS: MULTIVIT/MIN/PREN/FOL AC/IRON TABLET 1 TAB PO (08:59)
[2023-12-07] MEDS: DOCUSATE SODIUM 100 MG CAPSULE PO ×2 (09:00→17:56)
[2023-12-07] MEDS: POLYSACCHARIDE IRON COMPLEX 150 MG CAPSULE PO ×2 (09:00→17:56)
[2023-12-07] MEDS: SIMETHICONE 80 MG TAB.CHEW PO ×2 (09:02→14:36)
--- NOTE | 2023-12-07 11:00 | PC.NURSE ---
Introductions were made, then consulted with patient to assess needs related to . Mother led the conversation with her?plans to feed?her infant and the?experience so far. Currently mom is pumping and bottle feeding. She says she occasionally offers the breast if baby isn't too fussy and that baby is able to latch. Mom is pumping about 2 ounces total each session. Mom has been very sick and not up to much more than pumping at this time. Encouraged understanding of how to watch for early feeding cues, feeding on demand (aiming for 8-12 times in 24 hours, about every 2-3 hours), milk production, building/maintaining a milk supply, duration of feeding, signs of adequate intake/output and how to record on the feeding sheet. Reviewed comfort measures for her nipples. She was pumping on the highest setting and we discussed turning it down to the highest comfortable setting. Resources used for education were baby guide, feeding sheet, name written on the communication board. Parents voiced understanding of information, demonstrated learning and will call if there is a request for assistance. Reported to the Primary RN.
[2023-12-07] MEDS: HYDROcodone/acetaminophen (*CRX) 5-325 MG TABLET 1 TAB PO (14:35)
[2023-12-07 15:00] VITALS: BP 114/89; PULSE 66; RESP 18; TEMP 36.5; O2SAT 98
--- NOTE | 2023-12-07 20:06 | PC.NURSE ---
1600 Patient viewed the discharge video Mother & Baby Care, The First Two Weeks . Patient was given the opportunity and encouraged to ask questions. Patient verbalized understanding of information shared and has been given the mother/baby guide for home reference.
[2023-12-08 15:55] VITALS: BP 131/75; PULSE 83; RESP 18; TEMP 37.1; O2SAT 99
== END 2023-12-07 21:00 | disposition home health service (06) | DRG 788 ==
LOC: ANHLDR 00:06 → ANHOB2 12-03 07:11
PROVIDERS: Admitting Provider Obstetrics & Gynecology; PCP Family Medicine; Visit Provider Obstetrics & Gynecology
PROC: 10D00Z1 Extraction of Products of Conception, Low, Open Approach (ICD-10-PCS; CPT 59514; principal; 2023-12-03 03:30)
DX: O36.8390 Maternal care for abnormalities of the fetal heart rate or rhythm, unspecified trimester, not applicable or unspecified (principal); Z3A.39 39 weeks gestation of pregnancy; Z37.0 Single live birth; O99.893 Other specified diseases and conditions complicating puerperium; N20.0 Calculus of kidney; R51.9 Headache, unspecified; Z87.442 Personal history of urinary calculi
CPT/HCPCS: 36415; 74177; 81001; 85025; 86592; 86703; 86850; 86900; 86901; 87086; 87088; A9270; G0432; J0456; J0690; J0696; J1885; J2274; J2371; J2405; J2590; J2795; J3010; J7030; J7120; J7121; Q9967

== ENCOUNTER 2024-03-06 10:53 | Emergency (ER) | payer BC, SELFPAY ==
--- NOTE | ~2024-03-06 | CT_ITS ---
CT abdomen pelvis wo con Ordering provider: Enrico Roger APRN History: 29 years Female with . bilateral flank pain, hx of stones . Comparison: December 06, 2023 Technique: CT abdomen and pelvis without IV and without oral contrast. Automated exposure control and iterative reconstruction technique were employed. The dose-length product was 468.33 mGy-cm. Findings: VISUALIZED LOWER CHEST: Normal. UPPER ABDOMINAL ORGANS: Liver: Normal. Gallbladder: Normal. Spleen: Normal. Stomach/duodenum: Normal. Pancreas: Normal. Adrenals: Normal. Kidneys: Tiny stone in the left kidney lower pole. PELVIC ORGANS: The bladder is underfilled. Right ovarian cyst measuring 2 cm. BOWEL AND MESENTERY: Colon: No evidence of diverticulitis. Normal appendix. Small Bowel: Normal. No obstruction. Peritoneum/mesentery: No free air or free fluid. No mesenteric lymphadenopathy. RETROPERITONEUM: Normal aorta. No retroperitoneal lymphadenopathy. MUSCULOSKELETAL: Superficial soft tissues: Small fat-containing umbilical hernia. Otherwise, The superficial soft tiss ues are normal. Bones: Normal spine. IMPRESSION: 1. Left kidney stone. 2. No evidence of appendicitis, diverticulitis or intestinal obstruction. 3. Small fat-containing umbilical hernia. Reviewed, dictated and finalized at location A. [facility]
[2024-03-06 11:00] VITALS: BP 123/76; PULSE 72; RESP 16; TEMP 36.7; O2SAT 100
[2024-03-06 11:18] VITALS: O2SAT 98
[2024-03-06 11:19] LABS: BEDSIDEPREGUCG Negative (Negative)
[2024-03-06 11:24] LABS: Basophils Percent Auto 0.5 % (0.2-1.2); Eosinophils Absolute Auto 0.1 K/mm3 (0-0.3); Eosinophils Percent Auto 1.3 % (0-4.4); Hematocrit 42.6 % (37.0-47.0); Hemoglobin 13.9 g/dL (12.0-15.0); Immature Granulocyte Absolute 0.02 K/mm3 (0.00-0.031); Immature Granulocyte Percent A 0.3 % (0-0.5); Lymphocytes Absolute Auto 2.55 K/mm3 (0.9-3.2); Lymphocytes Percent Auto 32.8 % (18.3-44.2); Mean Corpuscular HGB Conc 32.6 g/dl (32-36); Mean Corpuscular Volume 82.9 fl (80-100); Mean Platelet Volume 10.1 fl (7.4-10.4); Monocytes Absolute Auto 0.6 K/mm3 (0.1-0.6); Monocytes Percent Auto 7.2 % (2.6-8.5); Neutrophils Absolute Auto 4.5 K/mm3 (1.3-6.7); Neutrophils Percent Auto 57.9 % (45.5-73.1); Platelet Count Result 326 k/mm3 (150-375); Red Blood Count 5.14 M/mm3 (4.2-5.4); Red Cell Distribution Width 13.6 % (11.5-14.5); White Blood Count 7.8 K/mm3 (4.5-10.0)
[2024-03-06 11:30] VITALS: O2SAT 100
[2024-03-06 11:31] VITALS: BP 118/66; PULSE 81; RESP 18; O2SAT 100
[2024-03-06 11:36] LABS: Alanine Aminotransferase 50 U/L (6-35); Albumin Level 4.3 g/dL (3.5-5.1); Alkaline Phosphatase 83 U/L (38-126); Anion Gap 6 mmol/L (4-12); Aspartate Amino Transferase 39 U/L (14-36); Bilirubin,Total 0.5 mg/dL (0.2-1.3); Blood Urea Nitrogen 10 mg/dL (7-17); Calcium 9.2 mg/dL (8.4-10.2); Carbon Dioxide 27 mmol/L (22-30); Chloride 104 mmol/L (98-107); Estimated CRCL calculation 102 ml/min; Estimated Glomerular Filt Rate > 60; Glucose 91 mg/dL (65-110); Lipase 87 U/L (23-300); Potassium 3.9 mmol/L (3.4-5.0); Sodium 137 mmol/L (137-145)
[2024-03-06 11:37] LABS: Add Urine Microscopic? YES; Appearance Urine Turbid (Clear); Bacteria Urine 2+ /hpf; Bilirubin Urine Negative (Negative); Blood Urine Negative (Negative); Color Urine Dark Yellow (Yellow); Glucose Urine UA Negative (Negative); Ketones Urine Negative (Negative); Leukocyte Esterase Ur 2+ LEU/UL (Negative); Need Manual Microscopic Reviewed; Nitrate Urine Positive (Negative); Non Pathogenic Casts 0-2; Protein Urine Negative (Negative); RBC Urine >100 /hpf (0-2); Specific Grav Ur 1.026 (1.001-1.035); Squamous Epithelial Cell Urine Few /hpf (Few); WBC Urine 51-100 /hpf (0-3)
--- NOTE | 2024-03-06 11:46 | ED_ITS ---
HPI - Abdominal Pain General Chief Complaint: Abdominal Pain Stated Complaint: kidney stones Time Seen by Provider: 03/06/24 11:25 History of Present Illness HPI narrative: 29 y/o female presents with bilateral flank pain and painful urination since last night. patient states the symptoms increased at 4 am. patient has a hx of kidney stones and lithotripsy in the past. patient is 3 months post and passed a kidney stone after delivery. patient also having nausea. no other complaints. Onset (ago): day(s) (1) Related Data Home Medications ?Medication ?Instructions ?Recorded ?Confirmed ?Last Taken ?Type albuterol sulfate 90 mcg/actuation 2 puff inhalation Q4H PRN 03/27/21 11/30/23 Unknown History aerosol inhaler Shortness Of Breath Or Wheezing lamotrigine 100 mg tablet 150 mg PO HS 07/14/23 11/30/23 1 Day Ago History ~11/29/23 vit no.95-ferrous 1 tablet PO DAILY 07/14/23 11/30/23 1 Day Ago History fumarate 28 mg-folic acid 800 mcg ~11/29/23 tablet () quetiapine 50 mg tablet 50 mg PO DAILY PRN Anxiety 11/30/23 11/30/23 Unknown History valacyclovir 500 mg tablet 500 mg PO Q12H 11/30/23 11/30/23 1 Day Ago History (Valtrex) ~11/29/23 Allergies Allergy/AdvReac Type Severity Reaction Status Date / Time cat's claw Allergy Swelling Verified 03/06/24 10:54 coconut Allergy Abdominal Verified 03/06/24 10:54 Pain dog dander Allergy Swelling Verified 03/06/24 10:54 grass pollen Allergy Itching Verified 03/06/24 10:54 Penicillins Allergy Swelling Verified 03/06/24 10:54 of Lip/Tongue/Throat Sulfa (Sulfonamide Allergy Swelling Verified 03/06/24 10:54 Antibiotics) Review of Systems 2 Review of Systems: All systems reviewed & are unremarkable except as noted in HPI and below Gastrointestinal: Gastrointestinal: Reports nausea Genitourinary: Genitourinary: Reports nocturia, Reports dysuria and Reports flank pain PMFSH Past Medical History Medical History (Updated 03/06/24 @ 12:57 by Enrico Roger APRN) UTI (urinary tract infection) Asthma Hypothyroidism Surgical History Surgical History History of tonsillectomy Family History Family History (Updated 11/30/23 @ 14:31 by Justa Vera RN) Other No pertinent family history Social History Social History Smoking status: Never smoker Alcohol intake: current Alcohol use details: rare Substance use: never Do You Feel Safe in your Home?: Yes Lack of Transportation: No Lack of Food: Never True Current Housing: I Have Housing Concerned About Future Housing: No Difficulty Paying Gas/Electric Bills: No Difficulty Paying for Meds: No Currently Unemployed: No Education: High School Diploma/GED Difficulty w/ Childcare or Family Care: No Living arrangements: with family Gender identity (if verbalized by the patient): Female Spiritual care concerns: No Exam 2 Const: General: healthy appearing and no acute distress HENMT: Head: normal to inspection Eyes: Conjunctivae: conjunctivae normal Neck: Neck: normal visual inspection Chest: Chest palpation & inspection: normal inspection of the chest Resp: Effort & Inspection: normal respiratory effort Cardio: Rate: regular rate GI: GI Palp: Yes Soft to palpation and Yes Tenderness to palpation present (GI) : General: Yes CVA tenderness bilateral Back/Spine/Pelvis: Back: CVA tenderness Skin: General skin exam: normal color Neuro: General: patient oriented x3 Extrem: General: normal to inspection Psych: Mental Status: mental status grossly normal Course Course Emergency Course: ct shows small kidney stone with no obstruction. will place on oral abx and patient is requesting diflucan. patient instructed to follow-up with urologist in 1-2 weeks Reevaluation(s) Reevaluation #1: pain has improved Date: 03/06/24 Time: 12:54 Vital Signs Vital signs: Vital Signs Temperature 36.7 C 03/06/24 11:00 Pulse Rate 72 03/06/24 11:00 Respiratory Rate 16 03/06/24 11:00 Blood Pressure 123/76 03/06/24 11:00 Pulse Oximetry 100 03/06/24 11:00 Oxygen Delivery Room Air 03/06/24 11:00 Temperature 36.7 C 03/06/24 11:00 Pulse Rate 81 03/06/24 11:31 Respiratory Rate 18 03/06/24 11:31 Blood Pressure 118/66 03/06/24 11:31 Pulse Oximetry 100 03/06/24 11:31 Oxygen Delivery Room Air 03/06/24 11:00 MDM - Abdominal Pain MDM Narrative Medical decision making narrative: UA shows uti. will start on oral abx and kidney stone is non-obstructing. patient has established urologist Differential Diagnosis Differential diagnosis: Likely calculus of kidney, constipation, small bowel obstruction and other (uti) Lab Data 03/06/24 11:16 03/06/24 11:16 Labs: Lab Results 03/06/24 03/06/24 Range/Units 11:15 11:16 WBC 7.8 (4.5-10.0) K/mm3 RBC 5.14 (4.2-5.4) M/mm3 Hgb 13.9 D (12.0-15.0) g/dL Hct 42.6 (37.0-47.0) % MCV 82.9 (80-100) fl MCH 27.0 (26-34) pg MCHC 32.6 (32-36) g/dl RDW 13.6 (11.5-14.5) % Plt Count 326 (150-375) k/mm3 MPV 10.1 (7.4-10.4) fl Immature Gran % (Auto) 0.3 (0-0.5) % Neut % (Auto) 57.9 (45.5-73.1) % Lymph % (Auto) 32.8 (18.3-44.2) % [place] % (Auto) 7.2 (2.6-8.5) % Eos % (Auto) 1.3 (0-4.4) % Baso % (Auto) 0.5 (0.2-1.2) % Lymph # (Auto) 2.55 (0.9-3.2) K/mm3 [place] # (Auto) 0.6 (0.1-0.6) K/mm3 Eos # (Auto) 0.1 (0-0.3) K/mm3 Baso # (Auto) 0.0 (0.0-0.1) K/mm3 Abs Immat Gran (auto) 0.02 (0.00-0.031) K/mm3 Absolute Neuts (auto) 4.5 (1.3-6.7) K/mm3 Absolute Nucleated RBC 0.000 (0.0-0.012) K/mm3 Nucleated RBC % 0.0 (0.0-0.2) % Sodium 137 (137-145) mmol/L Potassium 3.9 (3.4-5.0) mmol/L Chloride 104 (98-107) mmol/L Carbon Dioxide 27 (22-30) mmol/L Anion Gap 6 (4-12) mmol/L BUN 10 (7-17) mg/dL Creatinine 0.80 (0.7-1.0) mg/dL Estim Creat Clear Calc 102 ml/min Estimated GFR > 60 (59 - ) Glucose 91 (65-110) mg/dL Calcium 9.2 (8.4-10.2) mg/dL Total Bilirubin 0.5 (0.2-1.3) mg/dL AST 39 H (14-36) U/L ALT 50 H (6-35) U/L Alkaline Phosphatase 83 (38-126) U/L Total Protein 7.0 (6.3-8.2) g/dL Albumin 4.3 (3.5-5.1) g/dL Lipase 87 (23-300) U/L Urine Color Dark yellow (Yellow) Urine Appearance Turbid H (Clear) Urine pH 6.0 (5.0-9.0) Ur Specific [place] 1.026 (1.001-1.035) Urine Protein Negative (Negative) mg/dL Urine Glucose (UA) Negative (Negative) mg/dL Urine Ketones Negative (Negative) mg/dL Ur Blood (Man) Negative (Negative) Urine Nitrate Positive H (Negative) Urine Bilirubin Negative (Negative) Urine Urobilinogen 1.0 (<2.0) mg/dL Add Ur Microanalysis Reviewed Leukocyte Esterase Rfl 2+ H (Negative) [place]/UL Urine RBC >100 H (0-2) /hpf Urine WBC 51-100 H (0-3) /hpf Ur Squamous Epith Cells Few (Few) /hpf Urine Bacteria 2+ H /hpf Urine Casts 0-2 POC Urine HCG, Qual Negative (Negative) Imaging Data Radiologist's impression: ITS Impressions Abdomen/Pelvis CT 03/06/24 12:24 IMPRESSION: 1. Left kidney stone. 2. No evidence of appendicitis, diverticulitis or intestinal obstruction. 3. Small fat-containing umbilical hernia. Discharge Plan Discharge Clinical Impression: Kidney calculus, UTI (urinary tract infection) Patient Disposition: Home, Self-Care Condition: Stable Instructions: Antibiotic Form, Urinary Tract Infection in Women (ED) Additional Instructions: TAKE MEDICATIONS PRESCRIBED RETURN FOR WORSENING SYMPTOMS FOLLOW-UP WITH UROLOGIST IN 1-2 WEEKS Patient Language: Romansh Prescriptions: New cephalexin 500 mg capsule 500 mg PO Q12H Qty: 14 0RF fluconazole [Diflucan] 100 mg tablet 100 mg PO DAILY Qty: 1 0RF No Action albuterol sulfate 90 mcg/actuation HFA aerosol inhaler 2 puff INHALATION Q4H PRN (Reason: Shortness Of Breath Or Wheezing) lamotrigine 100 mg tablet 150 mg PO HS PNV cmb#95-ferrous fumarate-FA [] 28 mg iron- 800 mcg Tablet 1 tablet PO DAILY quetiapine 50 mg tablet 50 mg PO DAILY PRN (Reason: Anxiety) valacyclovir [Valtrex] 500 mg Tablet 500 mg PO Q12H oxycodone-acetaminophen 5-325 mg tablet 1 tablet PO Q4H PRN (Reason: pain) Qty: 25 0RF Follow-up/Referrals: Keesha,MD Joanna [Primary Care Provider] - 1 Week Time of Disposition: 12:59
[2024-03-06] MEDS: KETOROLAC 30 MG/ML VIAL (*BKC) IM (11:57)
[2024-03-06] MEDS: SODIUM CHLORIDE 0.9% IV 1,000 ML 30 ML IV CONT (11:57)
[2024-03-06 13:08] VITALS: BP 114/68; PULSE 76; RESP 16; TEMP 36.5; O2SAT 100
== END 2024-03-06 13:11 | disposition home or self-care (01) ==
PROVIDERS: Emergency Medicine; Emergency Provider Nurse Practitioner Family; PCP Family Medicine
DX: N39.0 Urinary tract infection, site not specified (principal); N20.0 Calculus of kidney; J45.909 Unspecified asthma, uncomplicated; E03.9 Hypothyroidism, unspecified; Z87.442 Personal history of urinary calculi; Z87.440 Personal history of urinary (tract) infections; Z79.899 Other long term (current) drug therapy
CPT/HCPCS: 36415; 74176; 80053; 81001; 81025; 83690; 85025; 87077; 87086; 87186; 96361; 96365; 99284; J0696; J1885; J7030

== ENCOUNTER 2025-03-11 00:06 | Emergency (ER) | payer BC, SELFPAY ==
--- NOTE | ~2025-03-11 | CT_ITS ---
CT ABDOMEN AND PELVIS WITHOUT CONTRAST Clinical History: rt flank pain Comparison: 03/06/2024 Technique: Unenhanced axial images lung bases to symphysis pubis Coronal, sagittal reformats CT images acquired with automatic exposure control for dose reduction DLP: 812 mGy-cm Findings: Without intravenous contrast, sensitivity for detecting visceral parenchymal abnormalities decreased. Lung bases: Clear. Visualized heart and pericardium: Unremarkable. Liver: Unremarkable. Gallbladder: Unremarkable. Spleen: Unremarkable. Pancreas: Unremarkable. Adrenal glands: Unremarkable. Kidneys: Right kidney- No hydronephrosis. No renal stones. Left kidney- No hydronephrosis. 3 mm stone. Distal esophagus/stomach: Unremarkable. Small bowel loops: Normal caliber and wall thickness. Colon: Normal caliber and wall thickness. Normal RLQ appendix. Nodes: No enlarged nodes. Peritoneum: No ascites. No free intraperitoneal air. Urinary bladder: Unremarkable. Uterus: Unremarkable. Adnexa: No masses. Bones: No acute bony abnormality. Soft tissues: Unremarkable. Unopacified abdominal aorta: No aneurysmal dilatation. IMPRESSION: 1. No acute findings. 2. Small stone left kidney. No hydronephrosis. Reviewed, dictated and finalized at location R. ING INSTRUCTOR
[2025-03-11 00:18] VITALS: BP 104/89; PULSE 116; RESP 20; TEMP 36.6; O2SAT 98
[2025-03-11 03:30] LABS: BEDSIDEPREGUCG Negative (Negative)
[2025-03-11 03:37] LABS: Hematocrit 40.1 % (37.0-47.0); Hemoglobin 13.2 g/dL (12.0-15.0); Immature Granulocyte Percent A 0.2 % (0-0.5); Lymphocytes Absolute Auto 0.63 K/mm3 (0.9-3.2); Mean Corpuscular HGB Conc 32.9 g/dl (32-36); Mean Corpuscular Hemoglobin 26.1 pg (26-34); Mean Corpuscular Volume 79.2 fl (80-100); Nucleated Red Blood Cells Absolute Auto 0.000 K/mm3 (0.0-0.012); Nucleated Red Blood Cells Perc 0.0 % (0.0-0.2); Platelet Count Result 349 k/mm3 (150-375); Red Blood Count 5.06 M/mm3 (4.2-5.4); White Blood Count 9.3 K/mm3 (4.5-10.0)
[2025-03-11 03:48] LABS: Alanine Aminotransferase 17 U/L (6-35); Albumin Level 4.2 g/dL (3.5-5.1); Alkaline Phosphatase 56 U/L (38-126); Anion Gap 10 mmol/L (4-12); Aspartate Amino Transferase 23 U/L (14-36); Bilirubin,Total 0.6 mg/dL (0.2-1.3); Blood Urea Nitrogen 19 mg/dL (7-17); Calcium 8.6 mg/dL (8.4-10.2); Carbon Dioxide 24 mmol/L (22-30); Chloride 104 mmol/L (98-107); Estimated CRCL calculation 91 ml/min; Estimated Glomerular Filt Rate > 60; Glucose 112 mg/dL (65-110); Lipase 24 U/L (23-300); Potassium 3.9 mmol/L (3.4-5.0); Sodium 138 mmol/L (137-145); Total Protein 7.1 g/dL (6.3-8.2)
[2025-03-11 04:04] LABS: Add Urine Microscopic? YES; Appearance Urine Turbid (Clear); Glucose Urine UA Negative (Negative); Leukocyte Esterase Ur Negative LEU/UL (Negative); Need Manual Microscopic Reviewed; Nitrate Urine Negative (Negative); Non Pathogenic Casts 0-2; Specific Grav Ur > 1.045 (1.001-1.035)
[2025-03-11 04:53] VITALS: BP 108/71; PULSE 82; RESP 18; TEMP 36.8; O2SAT 96
[2025-03-11 04:59] VITALS: BP 129/89; PULSE 89; RESP 21; TEMP 36.9; O2SAT 99
[2025-03-11 07:15] VITALS: BP 109/75; PULSE 79; RESP 18; TEMP 36.7; O2SAT 98
[2025-03-11] MEDS: SODIUM CHLORIDE 0.9% IV 1,000 ML 999 ML IV CONT (07:40)
[2025-03-11] MEDS: ONDANSETRON INJ 4 MG/2 ML VIAL IV PUSH (07:40)
--- OUTSIDE RECORDS SUMMARY | 2025-03-11 08:06 | XMS_ITS | Continuity of Care Document ---
Author Organization [facility] Address [address] [place] [address] Care Team Providers Care Bone Puller Name Role Phone MEDINA CASTAÑEDA Primary Care Provider Assessment Encounter Date Assessment Date Assessment LastModified by Organization Details LastModified Time 02/08/2025 02/08/2025 Annual gynecological exam performed. Patient will come back in a year unless there are new symptoms. [email or web address] Not available 02/08/2025 09:15:44 Plan of Treatment Reminders Order Date Submit Date Provider Last Modified By Organization Details Last Modified Time Details Appointments None recorded. Lab pap, IG + reflex HPV if ASC-U - if positive HPV run subtyping 16,18/45 2024 025 [facility] (Lab), [address], [place], [address], 15:23:25 Referral None recorded. Procedures None recorded. Surgeries None recorded. Imaging None recorded. Medication Orders None recorded. Patient TargetsNo targets recorded. Patient InstructionsNo instructions recorded. Reason for Referral None Reported. Results Created Date Observation Date Name Description Value Unit Range Abnormal Flag Note LastModifiedBy Organization Detail LastModifiedTime 01/26/2001/25/2025 CBC (HEMO GRAM) WBC 8.2 10'3/ uL 3.5-10 .5 Not Available [facility] (Lab) [address], [place], [address], 01/31/2025 15:43:33 01/26/20 25 01/25/2025 CBC (HEMO GRAM) RBC 4.99 10'6/ uL (based on docume nted legal sex) 3.80-5 .20 Not Available [facility] (Lab) [address] [facility], [place], [address], 01/31/2025 15:43:33 01/26/20 25 01/25/2025 CBC (HEMO GRAM) HGB 12.9 g/dL (based on docume nted legal sex) 11.6-1 5.4 Not Available [facility] (Lab) [address] [facility], [place], [address], 01/31/2025 15:43:33 01/26/20 25 01/25/2025 CBC (HEMO GRAM) HCT 41.1 % (based on docume nted legal sex) 34.0-4 5.0 Not Available [facility] (Lab) [address] [facility], [place], [address], 01/31/2025 15:43:33 01/26/20 25 01/25/2025 CBC (HEMO GRAM) MCV 82.4 fL 80.0-9 9.0 Not Available [facility] (Lab) [address] [facility], [place], [address], 01/31/2025 15:43:33 01/26/20 25 01/25/2025 CBC (HEMO GRAM) MCH 25.9 pg 27.0-3 4.0 low Not Available [facility] (Lab) [address] [facility], [place], [address], 01/31/2025 15:43:33 01/26/20 25 01/25/2025 CBC (HEMO GRAM) MCHC 31.4 g/dL 32.0-3 5.5 low Not Available [facility] (Lab) [address] [facility], [place], [address], 01/31/2025 15:43:33 01/26/20 25 01/25/2025 CBC (HEMO GRAM) RDW 15.1 % 11.0-1 5.0 high Not Available [facility] (Lab) [address], [place], [address], 01/31/2025 15:43:33 01/26/20 25 01/25/2025 CBC (HEMO GRAM) plt 376 10'3/ uL 150-40 0 Not Available [facility] (Lab) [address] [facility], [place], [address], 01/31/2025 15:43:33 01/26/20 25 01/25/2025 CBC (HEMO GRAM) MPV 10.3 fL 8.8-12 .1 Not Available [facility] (Lab) [address], [place], [address], 01/31/2025 15:43:33 01/26/20 25 01/25/2025 CBC (HEMO GRAM) NRBC's 0.0 % 0.0 Not Available [facility] (Lab) [address], [place], [address], 01/31/2025 15:43:33 01/26/20 25 01/25/2025 CBC (HEMO GRAM) absolute NRBCs 0.0 10'3/ uL no refere nce range establ ished Refer ence range s for nonbi nary/ inter sex or unspe cifie d gende r patie nts have not been estab lishe d. Pleas e refer to the sarojo wing table for range s estab lishe d for cisge nder patie nts and evalu ate in the clini rajendra zen xt of the indiv idual patie nt: https ://randy spencer book. nm.or g/gen derx Not Available [facility] (Lab) [address], [place], [address], 01/31/2025 15:43:33 01/26/20 25 01/25/2025 DHEA SULFA TE DHEA-sulfate 243 ug/dL Femal e Range s Age(y ) Range (ug/d L) 10-15 34-28 0 15-20 65-36 8 20-25 148-4 07 25-35 99-34 0 35-45 61-33 7 45-55 35-25 6 55-65 19-20 5 65-75 9-246 > 75 12-15 4 Not Available [facility] (Lab) [address] [facility], [place], [address], 01/31/2025 15:43:33 01/26/20 25 01/25/2025 TSH, REFLE X FREE T4 TSH 2.18 uIU/m L 0.30-5 .33 Not Available [facility] (Lab) [address] [facility], [place], [address], 01/31/2025 15:43:34 01/26/20 25 01/25/2025 PROGE STERO NE progesterone 0.06 NG/mL The test metho d is elect yuniel milum inesc ence immun oassa y perfo rmed on the Yuniel Roque e801. Value s obtai jace with diffe rent assay metho ds by other labor atori es canno t be used inter esparza eably . Femal e Proge stero ne Range s: Folli cular phase 0.06- 0.89 ng/mL Ovula tion phase 0.12- 12.00 ng/mL Lutea l phase 1.83- 23.90 ng/mL Postm enopa usal <0.05 -0.13 ng/mL Healt hy Pregn ant Women 1st Trime ster 11.0- 44.30 2nd Trime ster 25.40 -83.3 0 3rd Trime ster 58.70 -214. 00 Not Available [facility] (Lab) [address] [facility], [place], [address], 01/31/2025 15:43:35 01/26/20 25 01/25/2025 PROLA CTIN prolactin, total 7.34 NG/mL 4.79-2 3.30 The test metho d is elect yuniel milum inesc ence immun oassa y perfo rmed on the Yuniel Roque e801. Value s obtai jace with diffe rent assay metho ds by other labor atori es canno t be used inter esparza eably . Not Available [facility] (Lab) [address] [place], [address], 01/31/2025 15:43:35 01/26/20 25 01/25/2025 FSH, LH, ESTRA DIOL estradiol 20.4 pg/mL The test metho d is elect yuniel milum inesc ence immun oassa y perfo rmed on the Yuniel Roque e801. Value s obtai jace with diffe rent assay metho ds by other labor atori es canno t [facility] . Femal e Estra diol Range s: Folli cular phase 12.4- 233 pg/mL Ovula tion phase 41.0- 398 pg/mL Lutea l phase 22.3- 341 pg/mL Postm enopa usal <5-13 8 pg/mL Healt hy Pregn ant Women 1st Trime ster 154-3 243 pg/mL 2nd Trime ster 1561- 23230 pg/mL 3rd Trime ster 8525- >3000 0 pg/mL Not Available [facility] (Lab) [address] [place], [address], 01/31/2025 15:43:36 01/26/20 25 01/25/2025 FSH, LH, ESTRA DIOL FSH 7.4 mIU/m L The test metho d is elect yuniel milum inesc ence immun oassa y perfo rmed on the Yuniel Roque e801. Value s obtai jace with diffe rent assay metho ds by other labor atori es canno t be [facility] . Femal es Folli cular : 3.5-1 2.5 mIU/m L Ovula tion: 4.7-2 1.5 mIU/m L Lutea l: 1.7-7 .7 mIU/m L Postm enopa use: 25.8- 134.8 mIU/m L Not Available [facility] (Lab) [address] [place], [address], 01/31/2025 15:43:36 01/26/20 25 01/25/2025 FSH, LH, ESTRA DIOL LH 8.1 mIU/m L The test metho d is elect yuniel milum inesc ence immun oassa y perfo rmed on the Yuniel Roque e801. Value s obtai jace with diffe rent assay metho ds by other labor atori es canno t be used inter esparza eably . Femal es Mid-F ollic ular: 2.4-1 2.6 mIU/m L Mid-C ycle: 14.0- 95.6 mIU/m L Mid-L uteal : 1.0-1 1.4 mIU/m L Postm enopa use: 7.7-5 8.5 mIU/m L Not Available [facility] (Lab) [address] [place], [address], 01/31/2025 15:43:36 01/26/20 25 01/25/2025 HUMAN SEX HORMO NE DERRICK NG GLOBU RENE sex hormone binding globulin 34.0 nmole s/L 18.2-1 35.5 Not Available [facility] (Lab) [address] [facility], [place], [address], 01/31/2025 15:43:36 01/26/20 25 01/25/2025 TESTO STERO NE, FREE( DIALY SIS) AND TOTAL (LC/M S/MS) testosterone , total 17 NG/dL 2-45 For addit ional infor lillian valente e refer to http: //[facility] catrogelio n.que stdia gnost ics.c om/fa q/ Total Testo stero neLCM [facility] Q165 (This link is being provi ded for infor rosa nal/ educa wandy l purpo ses only. ) This test was devel oped and its zofia tical perfo rmanc e kyle cteri stics have been deter mined by [facility]. It has not been clear ed or appro nae by the U.S. Food and Drug Admin istra tion. This assay has been valid ated pursu ant to the CLIA regul ation s and is used for clini rajendra purpo ses. Not Available [facility] (Lab) [address] [facility], [place], [address], 01/31/2025 15:43:37 01/26/20 25 01/25/2025 TESTO STERO NE, FREE( DIALY SIS) AND TOTAL (LC/M S/MS) testosterone , free 2.1 pg/mL 0.1-6. 4 This test was devel opdolores and its zofia tical perfo rmanc e kyle cteri stics have been deter mined by [facility] [place], [place]. It has not been clear ed or appro nae by the U.S. Food and Drug Admin istra tion. This assay has been valid ated pursu ant to the CLIA regul ation s and is used for clini rajendra purpo ses. Perfo rming Organ izati on Infor matio n: Site ID: AMD Name: [facility] Addre ss: [id number] [facility] [address] [place], [place] Direc tor: Robin Cartagena MD PhD Not Available [facility] (Lab) [address] [facility], [place], [address], 01/31/2025 15:43:37 02/08/20 25 02/07/2025 US, pelvi s No observ ation record ed. [facility] [address], [place], [address], 02/07/2025 13:32:54 02/08/20 25 02/07/2025 US, trans vagin al No observ ation record ed. [facility] [address], [place], [address], 02/07/2025 13:33:04 02/08/20 25 02/07/2025 US, pelvi s No observ ation record ed. [email or web address] [address], [place], [address], 02/07/2025 22:14:50 Result Notes None recorded. Problems Name Problem SNOMED Code Status Onset Date Resolution Date Notes Provider Name and Address Organization Details Recorded Time Disorder of placenta 426340900 Completed bilobed - serial growth. Last done 10/15/23 Felicita Best [facility] 4 09:48:54 Polyhydr amnios 85229049 Completed check at 34 weeks Along with growth - 10/15/23 u/s was WNL Felicita Best [facility], [facility] 4 09:48:46 Kidney stone 86152180 Completed 7mm left side Patricio Aponte MD [address], [place], [address], [facility] 4 20:31:51 Herpes simplex 08527322 Completed pt says only oral-sp Perlita Wong CNM [address], [place], [address], [facility] 4 11:56:46 Herpes simplex 79684641 Active pt says only oral-sp Perlita Wong CNM [address], [place], [address], [facility] 4 11:56:46 Pregnanc y [id number] Completed 202312/06/2023 Alhaji Colin [facility], [facility] 4 13:33:01 Problem Notes None recorded. Procedures Surgical History Date Name Laterality Status Provider Name and Address Organization Details Recorded Time 02/09/20 25 Date of Last Pap Smear completed Monet Mendoza [facility] 03/06/2025 10:57:03 12/03/19 24 Caesarean Section completed Savanah Alvarez [facility] 12/09/2023 15:23:55 02/20/20 21 procedure on lower leg completed [facility] 05/06/2023 12:04:51 02/20/20 21 extracorporeal shockwave lithotripsy of calculus of kidney completed [facility] 05/06/2023 12:05:14 03/22/19 20 extraction of wisdom tooth completed [facility] 05/27/2023 12:21:35 03/22/19 18 Tonsillectomy completed [facility] 05/06/2023 12:04:19 Imaging Results None recorded. Procedure Notes None recorded. Medical Equipment None Reported. Allergies Allergen ID Allergen Name Allergen Category Reaction Reaction Severity Criticality Documentation Date Start Date Code Code System Note Provider Name and Address Organization Details Recorded Time 81767 grass pollen environme nt,medica tion Not available Not available Not available 07/22/2020 Janina Carlos [facility] 11:29:22 97197 cat's claw preparati on medicatio n facial swelling moderate Not available 07/22/2020 67051 3 RxNorm Janina Carlos [facility] 11:29:22 59205 Substance with sulfonami de structure and antibacte rial mechanism of action (substanc e) medicatio n facial swelling severe Not available 07/22/2020 28005 8003 SNOMED Janina Carlos [facility] 11:29:22 75713 Canis lupus familiari s extract environme nt facial swelling moderate Not available 07/22/2020 97342 4 RxNorm Janina Carlos [facility] 11:29:22 30160 coconut allergeni c extract food,medi cation abdominal pain moderate Not available 07/22/2020 96762 1 RxNorm Janina Carlos [facility] 11:29:22 08865 Reglan medicatio n Not available Not available Not available 05/06/2023 9230 RxNorm Yaquelin harrell [facility] 4 12:00:31 31835 gadobenat e dimeglumi ne medicatio n vomiting Not available [facility] 02/07/20252020 29216 RxNorm Not Available alia - External Data Service - prod 5 03:20:17 22025 Product containin g penicilli n (product) medicatio n Not available Not available Not available 02/07/20252024 23524 8001 SNOMED unrec ogniz ed react ion (text : Unkno wn, code: [id number]) (from [facility]) Not Available alia - External Data Service - prod 03:20:17 88720 metoclopr amide Not available anxiety itching Not available Not available [facility] 02/07/20252021 6915 RxNorm Not Available alia - External Data Service - prod 5 03:20:17 Medications Name Sig Start Date Stop Date Status Note LastModified by Organization Details LastModified Time quetiapine 25 mg tablet TAKE ONE-HALF TABLET BY MOUTH NIGHTLY 02/08 completed Not Available Not Available Not Available cyclobenzap rine 10 mg tablet TAKE 1 TABLET (ORAL) 3 TIMES PER DAY NEEDED MUSCLE SPASM 08/22 completed Not Available Not Available Not Available fluconazole 100 mg tablet TAKE 1 TABLET BY MOUTH TODAY 01/25 completed Not Available Not Available Not Available lamotrigine 150 mg tablet 01/25 completed Not Available Not Available Not Available venlafaxine ER 75 mg capsule,ext ended release 24 hr TAKE 1 CAPSULE BY MOUTH EVERY DAY 05/06 completed Not Available Not Available Not Available lamotrigine 200 mg tablet TAKE 1 (200 MG) TABLET AND 2 (25 MG) TABLETS FOR A TOTAL OF 250 MG DAILY active Not Available Not Available No t Available fluconazole 150 mg tablet Take one tablet now, repeat in 48 hours 2024 active Not Available Not Available Not Avai lable valacyclovi r 1 gram tablet TAKE 1 TABLET BY MOUTH THREE TIMES A DAY 09/14 completed Not Available Not Available Not Available hydrocodone 5 mg-acetamin ophen 325 mg tablet Take 1 tablet every 6 hours by oral route as needed. 12/29 completed Not Available Not Available Not Available prazosin 1 mg capsule TAKE 1 CAPSULE BY MOUTH EVERY DAY AT NIGHT active Not Available Not Available No t Available sumatriptan 25 mg tablet PLEASE SEE ATTACHED FOR DETAILED DIRECTION S 05/06 completed Not Available Not Available Not Available metronidazo le 500 mg tablet Take 1 tablet every 12 hours by oral route for 7 days. 2024 active Not Available Not Available Not Avai lable valacyclovi r 500 mg tablet TAKE 1 TABLET BY MOUTH TWICE A DAY 02/08 completed Not Available Not Available Not Available ciprofloxac in 500 mg tablet TAKE 1 TABLET BY MOUTH EVERY 12 HOURS FOR 5 DAYS 07/22 completed Not Available Not Available Not Available ondansetron 8 mg disintegrat ing tablet Place 1 tablet 4 times a day by transling ual route as needed. 12/29 completed Not Available Not Available Not Available lamotrigine 25 mg tablet TAKE 2 TABLETS BY MOUTH DAILY ALONG WITH LAMOTRIGI NE 200MG FOR TOTAL DOSE OF 250MG DAILY active Not Available Not Available No t Available oxycodone-a cetaminophe n 5 mg-325 mg tablet active Not Available Not Available No t Available amitriptyli ne 10 mg tablet TAKE 1 TABLET BY MOUTH EVERY DAY AT NIGHT 05/06 completed Not Available Not Available Not Available cephalexin 500 mg capsule TAKE 1 CAPSULE BY MOUTH EVERY 12 HOURS 01/22 completed Not Available Not Available Not Available progesteron e micronized 200 mg capsule TAKE 1 CAPSULE BY MOUTH EVERY DAY FOR 12 DAYS active Not Available Not Available No t Available hydroxyzine HCl 25 mg tablet TAKE 1 TABLET BY MOUTH EVERY 6 HOURS NEEDED FOR ITCHING. 12/29 completed Not Available Not Available Not Available ergocalcife rol (vitamin D2) 1,250 mcg (50,000 unit) capsule TAKE 1 CAPSULE EVERY WEEK BY ORAL ROUTE. active Not Available Not Available No t Available clobetasol 0.05 % topical ointment PLEASE SEE ATTACHED FOR DETAILED DIRECTION S 01/25 completed Not Available Not Available Not Available azelastine 137 mcg (0.1 %) nasal spray USE 2 SPRAYS IN EACH NOSTRIL TWICE A DAY DIRECTED active Not Available Not Available No t Available ibuprofen 600 mg tablet Take 1 tablet every 6 hours by oral route as needed. 12/29 completed Not Available Not Available Not Available letrozole 2.5 mg tablet TAKE 1 TABLET BY MOUTH EVERY DAY active Not Available Not Available No t Available methylpredn isolone 4 mg tablets in a dose pack 07/22 completed Not Available Not Available Not Available albuterol sulfate HFA 90 mcg/actuati on aerosol inhaler INHALE 2 PUFFS BY MOUTH EVERY 4 HOURS NEEDED FOR WHEEZE active Not Available Not Available No t Available ondansetron 4 mg disintegrat ing tablet TAKE 1 TABLET BY MOUTH EVERY 8 HOURS NEEDED FOR NAUSEA 1ST LINE. 05/06 completed Not Available Not Available Not Available metformin ER 500 mg tablet,exte nded release 24 hr TAKE 2 TABLETS BY MOUTH EVERY DAY active Not Available Not Available No t Available lamotrigine 100 mg tablet TAKE 1 TABLET DAILY 01/25 completed Not Available Not Available Not Available escitalopra m 10 mg tablet TAKE 1 TABLET BY MOUTH EVERY DAY 05/06 completed Not Available Not Available Not Available nitrofurant oin monohydrate /macrocryst als 100 mg capsule Take 1 capsule every 12 hours by oral route for 5 days. 12/29 completed Not Available Not Available Not Available duloxetine 30 mg capsule,del ayed release TAKE 1 CAPSULE BY MOUTH EVERY DAY 05/06 completed Not Available Not Available Not Available duloxetine 60 mg capsule,del ayed release TAKE 1 CAPSULE BY MOUTH EVERY DAY 05/06 completed Not Available Not Available Not Available Albuterol Sulfate HFA active Not Available Not Available Not Available quetiapine 50 mg tablet TAKE 1 TABLET BY MOUTH NIGHTLY 12/29 completed Not Available Not Available Not Available 24 Hour Allergy Relief 08/22 completed Not Available Not Available Not Available Slynd 4 mg (28) tablet TAKE 1 TABLET BY MOUTH EVERY DAY 05/06 completed Not Available Not Available Not Available ID NOW COVID-19 Test Kit TEST DIRECTED 05/06 completed Not Available Not Available Not Available COVID-19 test specimen collection TEST DIRECTED 05/06 completed Not Available Not Available Not Available Vitals Date Recorded Body height Body mass index (BMI) Body weight Systolic And Diastolic Provider Name and Address Organization Details Last Updated DateTime 02/08/2025 160.02 cm 39.1 kg/m2 393709.91 g 116/72 mm[Hg] Monet Mendoza [facility] 02/08/2025 09:15:39 Social History Question Answer Notes LastModified by Organizat ion Details LastModified Time Tobacco Smoking Status Never Smoker Yaquelin harrell, [facility] 05/06/2023 12:03:54 Do You Have An Advance Directive? No Information n ot available 07/22/2020 If You Are , What Was Your Level Of Alcohol Consumption Prior To ? Occasional [email or web address] Information not available 05/06/2023 How Many Years Have You Consumed Alcohol? 5 [email or web address] Information not available 05/06/2023 Are You Blind Or Do You Have Difficulty Seeing? No Information n ot available 07/22/2020 What Is Your Level Of Caffeine Consumption? Heavy Information not available 07/22/2020 How Much Tobacco Do You Chew? None Information not available 07/22/2020 In The 14 Days Before Symptom Onset, Have You Had Close Contact With A Laboratory-confirm ed COVID-19 While That Case Was Ill? No Information n ot available 07/22/2020 In The 14 Days Before Symptom Onset, Have You Had Close Contact With A Person Who Is Under Investigation For COVID-19 While That Person Was Ill? No Information not available 07/22/2020 Have You Been To An Area Known To Be High Risk For COVID-19? No Information not available 07/22/2020 Are You Deaf Or Do You Have Serious Difficulty Hearing? No Information not available 07/22/2020 What Type Of Diet Are You Following? VEGETARIAN Information n ot available 07/22/2020 What Is The Highest Grade Or Level Of School You Have Completed Or The Highest Degree You Have Received? [id number] Information not available 07/22/2020 Are There Any Guns Present In Your Home? No Information not available 07/22/2020 Do You Use Protection During Sex? No Information not available 07/22/2020 Do You Use Your Seat Belt Or Car Seat Routinely? Yes Information not available 07/22/2020 Do You Have Smoke And Carbon Monoxide Detectors In Your Home? Yes Information not available 07/22/2020 How Much Tobacco Do You Smoke? No Information not available 07/22/2020 Do You Use Sunscreen Routinely? No [email or web address] Information not available 02/08/2025 Have You Used IV Drugs? No Information not available 07/22/2020 Do You Have Difficulty Walking Or Climbing Stairs? No [email or web address] Information not available 05/06/2023 Sex: Unknown Functional Status Question Answer Note LastModified by Organizat ion Details LastModified Time Do you use any illicit or recreational drugs? No Information not available 07/22/2020 What is your level of alcohol consumption? None Information not available 05/06/2023 Are you able to walk independently without assistance or assistive devices? [email or web address] Information not available 07/22/2020 Are you able to care for yourself independently? 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 No [email or web address] Information not available 05/06/2023 What is your exercise level? Occasional Information not available 07/22/2020 Mental Status Question Answer Note LastModified by Organization D etails LastModified Time Do you feel stressed (tense, restless, nervous, or anxious, or unable to sleep at night)? [id number] Information not available 08/22/2020 Family History Relationship Description Onset Age of this Age Resolved Age Notes LastModified by Organization Details LastModified Time Maternal Aunt Malignant neoplasm of breast [email or web address] Not available 2024 12:24:48 Paternal Grandfather Hypercholest erolemia Not available 2020 11:29:26 Paternal Grandfather Heart disease Not available 2020 11:29:26 Maternal Grandmother Disorder of lung Not available 2020 11:29:26 Maternal Grandmother Malignant neoplasm of lung Not available 2020 11:29:26 Maternal Grandmother Hypertensive disorder Not available 2020 11:29:26 Maternal Grandmother Diabetes mellitus Not available 2020 11:29:26 Maternal Grandmother Malignant neoplasm of breast [email or web address] Not available 2024 12:24:48 Maternal Grandmother Cerebrovascu lar accident Not available 05/2020 11:29:26 Mother Depressive disorder Not available 2020 11:29:26 Maternal Grandfather Hypertensive disorder Not available 2020 11:29:26 Medical History Condition Response Allergies (Food, seasonal, environmental ) Y Other N Drug/Latex Allergies/Reactions Y Blood Transfusion N Breast Cancer N Dermatologic Disorders N Lung Disease N Defects or Inherited Disease N Breast Problem Y Gestational Diabetes N Hematologic disorders N Anesthesia Complications N History of STI Y Deep Vein Thrombosis N Polycystic ovary syndrome N Anxiety Disorder Y Autoimmune disease N Arthritis N Polyps N Infertility N Acid Reflux (GERD) N History of abnormal pap N Cancer N Varicosities N Stroke N Neurologic/Epilepsy Y Endometriosis N High Cholesterol N Fibromyalgia N Headaches Y Kidney Disease N Heart Problems N Thyroid Problems Y Kidney or Bladder Problems Y GI Problems N Eating Disorder Y Anemia N Art (IVF or FET) N Psychiatric Illness Y Ovarian Cancer N Diabetes N Pulmonary (TB, Asthma) N Hepatitis/Liver Disease N No Past Medical History N Eczema N Urinary Tract Infection Y Abuse/Domestic Violence N Asthma Y Trauma/Violence N Depression/ depression Y Heart Disease N Pre-Eclampsia N Hypertension N Osteoporosis N Thrombophilias N Gynecological History Statement/Question Response Abnormal Pap N Date of Last Mammogram Flow Moderate Date of LMP 01/20/2025 N On BCP's at Conception? N STIs/STDs No Was last menstrual period normal Y HPV Vaccine Y Duration of Flow (days) 5 12 Current Control Method Seeking Pre gnancy Are cycles usually normal Y Date of Last Colonoscopy Frequency of Cycle (Q days) 30 Sexually Active? Y Menses Monthly Y Date of DEXA bone scan Age of first menstrual cycle 14 Date of Last Pap Smear 02/08/2025 Sexual Problems? N LMP Definite N Obstetrics History GPAL:G 4 P 1 0 3 1 Type Value Full Term 1 Spontaneous 3 Living 1 Total 4 Past Encounters Encounter ID Performer Location Encounter Start Date Encounter Closed Date Diagnosis/Indication Diagnosis SNOMED-CT Code Diagnosis ICD10 Code Diagnosis IMO Codes Diagnosis Note [id number] Patricio Aponte MD [facility] [address] [address] 01/25/2025 11:55:56 01/25/2025 16:53:19 Abnormal uterine bleeding [id number] 9100 N93.9 [id number] this patient is a 30-year-ol d female presents for abnormal uterine bleeding. She has irregularl y irregular bleeding. She has no premenstru al symptoms. Her menses or vaginal bleeding is very unpredicta ble. She occasional ly gets a positive ovulation predictor kit. Ovulation seems to be rare. She has not had a menstrual cycle for most of the last year. She has been trying to get . She has been unable to get over this last year. She did have a 2 years ago. Prior to that she had a great deal of difficulty getting . She had irregular bleeding. We agreed to evaluate her abnormal uterine bleeding and anovulatio n. We are going to obtain laboratory evaluation and ultrasound . She will return to discuss those results. We will consider evaluation of infertilit y at that time. We spent over 20 minutes on the patient's care regarding abnormal uterine bleeding. [id number] Patricio Aponte MD [facility] [address] [address] 02/07/2025 12:23:07 02/07/2025 13:15:01 Abnormal uterine bleeding [id number] 9100 N93.9 [id number] this patient is a 30-year-ol d female presents for abnormal uterine bleeding. She has irregularl y irregular bleeding. She has no premenstru al symptoms. Her menses or vaginal bleeding is very unpredicta ble. She occasional ly gets a positive ovulation predictor kit. Ovulation seems to be rare. She has not had a menstrual cycle for most of the last year. She has been trying to get . She has been unable to get over this last year. She did have a 2 years ago. Prior to that she had a great deal of difficulty getting . She had irregular bleeding. We agreed to evaluate her abnormal uterine bleeding and anovulatio n. We are going to obtain laboratory evaluation and ultrasound . She will return to discuss those results. We will consider evaluation of infertilit y at that time. We spent over 20 minutes on the patient's care regarding abnormal uterine bleeding. [id number] FRANCISCA ALVARADO NP [facility] [address] [address] 02/08/2025 09:00:33 02/08/2025 09:35:43 Well woman health examination [id number] Z01.419 [id number] Annual gynecologi rajendra exam performed. Patient will come back in a year unless there are new symptoms. Suggest Calcium with Vitamin D if not eating in diet. Patient advised to get annual flu shot. Recommend yearly physicals and perform monthly breast exams. Genetic testing is available for patients with family history of cancer. Engage in safe sexual practices, use condoms. Encouraged to have daily exercise. Avoid tobacco and illicit drugs, moderation of alcohol. If BMI greater than 25 dietary consult advised. If you have any questions please call or email. Pap smear- pap w/ HPV collected STI testing - declined Health Concerns Section Related Observation LastModified by Organization Detai ls LastModified Time None Recorded Concern Status LastModified by Organization Details LastModified Time None Recorded Payers Encounter Date Sequence Insurance Name Policy Number Policy [place] Covered Member ID [place] Member ID Guarantor Name 02/08/2025 1 [place] [id number] Vineet Sharma [id number] Notes Date Note Type Note Provider Name and Address Organization Details Recorded Time 5 text/html Annual GYNReported by PatientHistoryFor history, patient reportsactively trying to conceive.Genitourinary symptomsFor menstrual cycle, patient reportsnormal menses. For urinary symptoms, patient reportsno hematuriaandno incontinence. For vulva, patient reportsno genital lesion. For vagina, patient reportsnormal vaginal discharge.Breast symptomsFor breast, patient reportsno breast pain,no breast lump, andno nipple discharge.Endocrine symptomsFor sexual complaints, patient reportsno sexual complaints,no pain during intercourse, andnormal libido. For menopausal symptoms, patient reportsno menopausal symptomsandnormal vaginal lubrication.Psychologi rajendra symptomsFor psychological symptoms, patient reportsno depression,no anxiety, andno pmdd.Preventative measuresFor preventive measures, patient reportsencourage self breast examination,encourage regular exercise,encourage no tobacco use, andencourage regular mammograms starting age 40. Patient presents for annual well woman exam. Patient denies concerns today.Patient has f/u with Dr. Aponte next week for infertility work-up as she has been trying to conceive for one year; had labs and pelvic ultrasound completed. FRANCISCA ALVARADO, [facility] [address], [place], [address], [place] [facility] 02/08/2025 09:33:46 OBGyn Episode No OBEpisode recorded.
--- OUTSIDE RECORDS SUMMARY | 2025-03-11 08:06 | XMS_ITS | Encounter Summary ---
Author Organization [facility] Address [address] [place] [address] Phone Care Team Providers Care Health Companion Name Role Phone Joanna Thao MD Primary Care Provider Maryam Mane APRN, TOUR CONSULTANT Unavailable [phone] Lianet Hernandez Primary Care Provider + Megan Welsh APRN, TOUR CONSULTANT Primary Care Prov ider Reason for Visit * Reason Comments Medication Refill Encounter Details Date Type Department Care Team (Late st Contact Info) Description 02/23/2021 Refill [facility] - Neurology [facility] [address] [place] [id number] Rossy Salas APRN, RN COMPLEX CARE [address] [place] [address] Medication Refill Social History Tobacco Use Types Packs/Day Years Used Date Smoking Tobacco: Never Smokeless Tobacco: Never Alcohol Use Standard Drinks/Week Comments No 0 (1 standard drink = 0.6 oz pur e alcohol) PHQ-2 Answer Date Recorded Total Score - Questions 1-9 0 01/20 Sexually Active Control Partners Comments Yes Male Comments No Sex and Gender Information Value Date Recorded Sex Assigned at Not on file Legal Sex Female 9:41 PM CDT Gender Identity Not on file Sexual Orientation Not on file COVID-19 Exposure Response Date Recorded In the last month, have you been in contact with someone who was confirmed or suspected to have Coronavirus / COVID-19? No / Unsure 02/11/2021 1:09 PM RESIDENTIAL FINISH CARPENTER documented as of this encounter Plan of Treatment Upcoming Encounters Date Type Department Care Team (Late st Contact Info) Description 03/23/2025 11:00 AM RESIDENTIAL FINISH CARPENTER Office Visit [facility] Neurology [facility] [address] [place] [address] Rossy Salas APRN, RN COMPLEX CARE [address] [place] [address] 04/30/2025 1:30 PM RESIDENTIAL FINISH CARPENTER Office Visit [facility] Family Medicine [facility] [address] [place] [address] Megan Welsh APRN, TOUR CONSULTANT [address] [address] documented as of this encounter Visit Diagnoses Not on filedocumented in this encounter Additional Health Concerns Assessment Noted Time PHQ-9 Depression Total Score: 0 01/30/20 21 7:42 AM RESIDENTIAL FINISH CARPENTER documented as of this encounter Care Teams Health Companion Relationship Specialty Start Date End Date Joanna Thao MD PCP - General Family Medicine 02/01/18 09/05/23 Lianet Hernandez PAC [address] [place] [address] PCP - General Physician Community Director 06/16/24 12/21/24 Megan Welsh APRN, TOUR CONSULTANT [address] [address] PCP - General Advanced Practice Nurse 12/22/24 Maryam Mane, LIBRARY ATTENDANT, TOUR CONSULTANT [address] [place] [phone] Obstetrics & Gynecology 09/01/18 documented as of this encounter
--- OUTSIDE RECORDS SUMMARY | 2025-03-11 08:06 | XMS_ITS | Encounter Summary ---
Author Organization [facility] Address [address] [place] [address] Phone Care Team Providers Care Wool Supplier Name Role Phone Joanna Thao MD Primary Care Provider Maryam Mane APRN, PORTER HEAD Unavailable [phone] Lianet Hernandez Primary Care Provider + Megan Welsh APRN, PORTER HEAD Primary Care Prov ider Reason for Visit * Reason Comments Medication Refill Encounter Details Date Type Department Care Team (Late st Contact Info) Description 04/03/2023 [facility]ill [facility] [address] [place] [address] Megan Welsh APRN, PORTER HEAD [address] [address] Medication Refill Social History Tobacco Use Types Packs/Day Years Used Date Smoking Tobacco: Never Smokeless Tobacco: Never Alcohol Use Standard Drinks/Week Comments No 0 (1 standard drink = 0.6 oz pur e alcohol) 4 TIMES A YEAR PHQ-2 Answer Date Recorded Total Score - Questions 1-9 17 09/2022 Sexually Active Control Partners Comments Yes Male Comments No Sex and Gender Information Value Date Recorded Sex Assigned at Not on file Legal Sex Female 9:41 PM CDT Gender Identity Not on file Sexual Orientation Not on file documented as of this encounter Miscellaneous Notes * Telephone Encounter - Betsey Ramsey RMA - 04/05/2023 9:20 AM MEDICATION AIDE Lvm to schedule transfer of care CATION AIDE * Telephone Encounter - Thao Massey RN - 04/05/2023 8:54 AM CST Needs OV to transfer care CATION AIDE * Telephone Encounter - Thao Massey RN - 04/05/2023 8:52 AM CST Medication failed the protocol, provider to review and approve the medication order if appropriate. Requested Prescriptions Pending Prescriptions Disp Refills amitriptyline (ELAVIL) 10 MG Tablet [Pharmacy Med Name: AMITRIPTYLINE HCL 10 MG TAB] 90 Tablet 0 Sig: TAKE 1 TABLET BY MOUTH EVERY DAY AT NIGHT Not Delegated - Tricyclic Agents Protocol Failed - 04/03/2023 7:09 AM Failed - This refill cannot be delegated Passed - Visit with relevant provider in past 12 months or upcoming 90 days Recent Visits Date Type Provider Dept 09/25/22 [facility] 07/[facility]/22 [facility] 05/08/22 Office Visit Lianet Hernandez, [facility] Showing recent visits within past 365 days and meeting all other requirements Future Appointments No visits were found meeting these conditions. Showing future appointments within next 90 days and meeting all other requirements CATION AIDE documented in this encounter Plan of Treatment Upcoming Encounters Date Type Department Care Team (Late st Contact Info) Description 03/23/2025 11:00 AM MEDICATION AIDE Office Visit [facility] - [facility]rology - [place] [address] [place] [address] Rossy Salas APRN, PLANT SCIENCE PROFESSOR [address] [place] [address] 04/30/2025 1:30 PM MEDICATION AIDE Office Visit [facility] [address] [place] [address] Megan Welsh APRN, PORTER HEAD [address] [address] documented as of this encounter Goals Goal Patient Goal Type Associated Problems Recent Progress Patient-Stated? Author Psychological Assessment Behavioral Health Yes Ralph Sears PSYD Note: Patient will participate fully in a psychological assessment of her symptoms and personality factors, to determine whether she meets the criteria for a bipolar/related disorder, personality disorder, or another condition. documented as of this encounter Visit Diagnoses Not on filedocumented in this encounter Additional Health Concerns Assessment Noted Time PHQ-9 Depression Total Score: 17 023 3:00 PM CDT documented as of this encounter Care Teams Wool Supplier Relationship Specialty Start Date End Date Joanna Thao MD PCP - General Family Medicine 02/01/18 09/05/23 Lianet Hernandez [facility] [address] [place] [address] PCP - General Physician [place] Hand 06/16/24 12/21/24 Megan Welsh APRN, PORTER HEAD [address] [address] PCP - General Advanced Practice Nurse 12/22/24 Maryam Mane, MOTTLER MACHINE FEEDER, PORTER HEAD [address] [place] [address] Obstetrics & Gynecology 09/01/18 documented as of this encounter
--- OUTSIDE RECORDS SUMMARY | 2025-03-11 08:06 | XMS_ITS | Encounter Summary ---
Author Organization [facility] Address [address] [place] [address] Phone Care Team Providers Care Non Food Receiving Clerk Name Role Phone Joanna Thao MD Primary Care Provider [phone] Maryam Mane APRN, SUPERINTENDENT QUARRY Unavailable Lianet Hernandez Primary Care Provider + Megan Welsh APRN, SUPERINTENDENT QUARRY Primary Care Prov ider Reason for Visit * Reason Comments Medication Refill Encounter Details Date Type Department Care Team (Late st Contact Info) Description 12/31/2022 Refill [facility] - Family Medicine [facility] [address] [place] [address] Lianet Hernandez PAC [address] [place] [address] Medication Refill Social History Tobacco Use Types Packs/Day Years Used Date Smoking Tobacco: Never Smokeless Tobacco: Never Alcohol Use Standard Drinks/Week Comments No 0 (1 standard drink = 0.6 oz pur e alcohol) 4 TIMES A YEAR PHQ-2 Answer Date Recorded Total Score - Questions 1-9 17 /09/2022 Sexually Active Control Partners Comments Yes Male Comments No Sex and Gender Information Value Date Recorded Sex Assigned at Not on file Legal Sex Female 9:41 PM CDT Gender Identity Not on file Sexual Orientation Not on file documented as of this encounter Miscellaneous Notes * Telephone Encounter - Raven De Souza RN - 12/31/2022 7:55 AM CDT Medication failed the protocol, provider to review and approve the medication order if appropriate. Requested Prescriptions Pending Prescriptions Disp Refills DULoxetine (CYMBALTA) [address] Particles [Pharmacy Med Name: DULOXETINE HCL DR 60 MG CAP] 90 Capsule 0 Sig: TAKE 1 CAPSULE BY MOUTH EVERY DAY SNRI (6 Month Refill Only) Protocol Failed - 12/31/2022 1:04 AM Failed - Patient has established therapy with Serotonin-Norepinephrine Reuptake Inhibitors for at least 6 months Passed - No test in the past 12 months or most recent test was negative Passed - No active on record Passed - Visit with relevant provider in past 6 months or upcoming 90 days Recent Visits Date Type Provider Dept 09/25/22 Office Visit Lianet Hernandez PAC [facility] 07/31/22 Office Visit Lianet Hernandez PAC [facility] Showing recent visits within past 182 days and meeting all other requirements Future Appointments No visits were found meeting these conditions. Showing future appointments within next 90 days and meeting all other requirements Passed - Has an encounter in the past 6 months with a depression or anxiety visit diagnosis amitriptyline (ELAVIL) 10 MG Tablet [Pharmacy Med Name: AMITRIPTYLINE HCL 10 MG TAB] 90 Tablet 0 Sig: TAKE 1 TABLET BY MOUTH EVERY DAY AT NIGHT Not Delegated - Tricyclic Agents Protocol Failed - 12/31/2022 1:04 AM Failed - This refill cannot be delegated Passed - Visit with relevant provider in past 12 months or upcoming 90 days Recent Visits Date Type Provider Dept 09/25/22 Office Visit Lianet Hernandez PAC [facility] 07/31/22 Office Visit Lianet Hernandez PAC [facility] 05/08/22 Office Visit Lianet Hernandez PAC [facility] Showing recent visits within past 365 days and meeting all other requirements Future Appointments No visits were found meeting these conditions. Showing future appointments within next 90 days and meeting all other requirements documented in this encounter Plan of Treatment Upcoming Encounters Date Type Department Care Team (Late st Contact Info) Description 03/23/2025 11:00 AM UTILITIES SERVICE INVESTIGATOR Office Visit [facility] - Neurology [facility] [address] [place] [address] Rossy Salas, SITE TECHNICIAN, ELECTRICAL/INSTRUMENT TECHNICIAN [address] [place] [address] 04/30/2025 1:30 PM UTILITIES SERVICE INVESTIGATOR Office Visit [facility] Family Medicine [facility] [address] [place] [phone] Megan Welsh, SITE TECHNICIAN, SUPERINTENDENT QUARRY [address] [phone] documented as of this encounter Goals Goal [...] documented as of this encounter Care Teams Non Food Receiving Clerk Relationship Specialty Start Date End Date Joanna Thao MD PCP - General Family Medicine 02/01/18 09/05/23 Lianet Hernandez [facility] [address] [place] [address] PCP - General Physician Rn Critical Care 06/16/24 12/21/24 Megan Welsh APRN, SUPERINTENDENT QUARRY [address] [address] PCP - General Advanced Practice Nurse 12/22/24 Maryam Mnae APRN, SUPERINTENDENT QUARRY [address] [place] [address] Obstetrics & Gynecology 09/01/18 documented as of this encounter
--- OUTSIDE RECORDS SUMMARY | 2025-03-11 08:06 | XMS_ITS | Continuity of Care Document ---
Author Organization [facility] Address [address] [place] [address] Care Team Providers Care Television Repairman Name Role Phone MEDINA CASTAÑEDA Primary Care Provider Assessment No assessment recorded. Plan of Treatment Reminders Order Date Submit Date Provider Last Modified By Organization Details Last Modified Time Details Appointments None recorded. Lab dhea-sulfat e, serum 2024 025 [facility] (Lab), [address] [place], [address], 5 15:43:34 hormone panel, serum or plasma 2024 025 [facility] (Lab), [address] [place], [address], 5 15:43:36 progesteron e, serum 2024 025 [facility] (Lab), [address] [place], [address], 5 15:43:35 prolactin, serum 2024 025 [facility] (Lab), [address] [place], [address], 5 15:43:35 shbg (sex hormone-bin ding globulin), serum 2024 025 [facility] (Lab), [address] [place], [address], 15:43:36 TSH, serum or plasma 2024 025 [facility] (Lab), [address] [facility], [place], [address], 15:43:34 testosteron e free/testos terone total, ratio, serum 2024 025 [facility] (Lab), [address] [facility], [place], [address], 15:43:37 CBC 2024 025 [facility] (Lab), [address], [place], [address], 15:43:33 Referral None recorded. Procedures None recorded. Surgeries None recorded. Imaging None recorded. Medication Orders None recorded. Patient TargetsNo targets recorded. Patient InstructionsNo instructions recorded. Reason for Referral None Reported. Results Created Date Observation Date Name Description Value Unit Range Abnormal Flag Note LastModifiedBy Organization Detail LastModifiedTime 01/26/2001/25/2025 CBC (HEMO GRAM) WBC 8.2 10'3/ uL 3.5-10 .5 Not Available [facility] (Lab) [address] [facility], [place], [address], 01/31/2025 15:43:33 01/26/20 25 01/25/2025 CBC (HEMO GRAM) RBC 4.99 10'6/ uL (based on docume nted legal sex) 3.80-5 .20 Not Available [facility] (Lab) [address], [place], [address], 01/31/2025 15:43:33 01/26/20 25 01/25/2025 CBC (HEMO GRAM) HGB 12.9 g/dL (based on docume nted legal sex) 11.6-1 5.4 Not Available [facility] (Lab) [address], [place], [address], 01/31/2025 15:43:33 01/26/20 25 01/25/2025 CBC (HEMO GRAM) HCT 41.1 % (based on docume nted legal sex) 34.0-4 5.0 Not Available [facility] (Lab) [address], [place], [address], 01/31/2025 15:43:33 01/26/20 25 01/25/2025 CBC (HEMO GRAM) MCV 82.4 fL 80.0-9 9.0 Not Available [facility] (Lab) [address], [place], [address], 01/31/2025 15:43:33 01/26/20 25 01/25/2025 CBC (HEMO GRAM) MCH 25.9 pg 27.0-3 4.0 low Not Available [facility] (Lab) [address], [place], [address], 01/31/2025 15:43:33 01/26/20 25 01/25/2025 CBC (HEMO GRAM) MCHC 31.4 g/dL 32.0-3 5.5 low Not Available [facility] (Lab) [address] [facility], [place], [address], 01/31/2025 15:43:33 01/26/20 25 01/25/2025 CBC (HEMO GRAM) RDW 15.1 % 11.0-1 5.0 high Not Available [facility] (Lab) [address], [place], [address], 01/31/2025 15:43:33 01/26/20 25 01/25/2025 CBC (HEMO GRAM) plt 376 10'3/ uL 150-40 0 Not Available [facility] (Lab) [address], [place], [address], 01/31/2025 15:43:33 01/26/20 25 01/25/2025 CBC (HEMO GRAM) MPV 10.3 fL 8.8-12 .1 Not Available [facility] (Lab) [address], [place], [address], 01/31/2025 15:43:33 01/26/20 25 01/25/2025 CBC (HEMO GRAM) NRBC's 0.0 % 0.0 Not Available [facility] (Lab) [address], [place], [address], 01/31/2025 15:43:33 01/26/20 25 01/25/2025 CBC (HEMO GRAM) absolute NRBCs 0.0 10'3/ uL no refere nce range establ ished Refer ence range s for nonbi nary/ inter sex or unspe cifie d gende r patie nts have not been estab lishe d. Pleas e refer to the follo wing table for range s estab lishe d for cisge nder patie nts and evalu ate in the clini rajendra zen xt of the indiv idual patie nt: https ://randy spencer book. nm.or g/gen derx Not Available [facility] (Lab) [address], [place], [address], 01/31/2025 15:43:33 01/26/20 25 01/25/2025 DHEA SULFA TE DHEA-sulfate 243 ug/dL Femal e Range s Age(y ) Range (ug/d L) 10-15 34-28 0 15-20 65-36 8 20-25 148-4 07 25-35 99-34 0 35-45 61-33 7 45-55 35-25 6 55-65 19-20 5 65-75 9-246 > 75 12-15 4 Not Available [facility] (Lab) [address], [place], [address], 01/31/2025 15:43:33 01/26/20 25 01/25/2025 TSH, REFLE X FREE T4 TSH 2.18 uIU/m L 0.30-5 .33 Not Available [facility] (Lab) [address] [place], [address], 01/31/2025 15:43:34 01/26/20 25 01/25/2025 PROGE STERO NE progesterone 0.06 NG/mL The test metho d is elect yuniel milum inesc ence immun oassa y perfo rmed on the Yuniel Roque e801. Value s obtai jace with diffe rent assay metho ds by other labor atori es canno t [facility] . Femal e Proge stero ne Range s: Folli cular phase 0.06- 0.89 ng/mL Ovula tion phase 0.12- 12.00 ng/mL Lutea l phase 1.83- 23.90 ng/mL Postm enopa usal <0.05 -0.13 ng/mL Healt hy Pregn ant Women 1st Trime ster 11.0- 44.30 2nd Trime ster 25.40 -83.3 0 3rd Trime ster 58.70 -214. 00 Not Available [facility] (Lab) [address] [place], [address], 01/31/2025 15:43:35 01/26/20 25 01/25/2025 PROLA CTIN prolactin, total 7.34 NG/mL 4.79-2 3.30 The test metho d is elect yuniel milum inesc ence immun oassa y perfo rmed on the Yuniel Roque e801. Value s obtai jace with diffe rent assay metho ds by other labor atori es canno t be used inter [facility] . Not Available [facility] (Lab) [address] [place], [address], 01/31/2025 15:43:35 01/26/20 25 01/25/2025 FSH, LH, ESTRA DIOL estradiol 20.4 pg/mL The test metho d is elect yuniel milum inesc ence immun oassa y perfo rmed on the Yuniel Roque e801. Value s obtai jace with diffe rent assay metho ds by other labor atori es canno t be used inter [facility] . Femal e Estra diol Range s: Folli cular phase 12.4- 233 pg/mL Ovula tion phase 41.0- 398 pg/mL Lutea l phase 22.3- 341 pg/mL Postm enopa usal <5-13 8 pg/mL Healt hy Pregn ant Women 1st Trime ster 154-3 243 pg/mL 2nd Trime ster 1561- 21343 pg/mL 3rd Trime ster 8525- >3000 0 pg/mL Not Available [facility] (Lab) [address], [place], [address], 01/31/2025 15:43:36 01/26/20 25 01/25/2025 FSH, LH, ESTRA DIOL FSH 7.4 mIU/m L The test metho d is elect yuniel milum inesc ence immun oassa y perfo rmed on the Yuniel Roque e801. Value s obtai jace with diffe rent assay metho ds by other labor atori es claudiao t be used [facility] . Femal es Folli cular : 3.5-1 2.5 mIU/m L Ovula tion: 4.7-2 1.5 mIU/m L Lutea l: 1.7-7 .7 mIU/m L Postm enopa use: 25.8- 134.8 mIU/m L Not Available [facility] (Lab) [address] [place], [address], 01/31/2025 15:43:36 01/26/20 25 01/25/2025 FSH, LH, ESTRA DIOL LH 8.1 mIU/m L The test metho d is elect yuniel milum inesc ence immun oassa y perfo rmed on the Yuniel Roque e801. Value s obtai jace with diffe rent assay metho ds by other labor atori es canno t be used [facility] . Femal es Mid-F ollic ular: 2.4-1 2.6 mIU/m L Mid-C ycle: 14.0- 95.6 mIU/m L Mid-L uteal : 1.0-1 1.4 mIU/m L Postm enopa use: 7.7-5 8.5 mIU/m L Not Available [facility] (Lab) [address] [facility], [place], [address], 01/31/2025 15:43:36 01/26/20 25 01/25/2025 HUMAN SEX HORMO NE DERRICK NG GLOBU RENE sex hormone binding globulin 34.0 nmole s/L 18.2-1 35.5 Not Available [facility] (Lab) [address], [place], [address], 01/31/2025 15:43:36 01/26/20 25 01/25/2025 TESTO STERO NE, FREE( DIALY SIS) AND TOTAL (LC/M S/MS) testosterone , total 17 NG/dL 2-45 For addit ional infor lillian valente e refer to http: //inessa figueroa.que stdia gnost ics.c om/fa q/ Total Testo stero neLCM [facility] Q[facility] (This link is being provi ded for infor rosa mederos/ educa wandy l purpo ses only. ) This test was devel oped and its zofia tical perfo rmanc e kyle cteri stics have been deter mined by [facility] [employer] [facility] [place]. It has not been clear ed or appro nae by the U.S. Food and Drug Admin istra tion. This assay has been valid ated pursu ant to the CLIA regul ation s and is used for clini rajendra purpo ses. Not Available [facility] (Lab) [address], [place], [address], 01/31/2025 15:43:37 01/26/20 25 01/25/2025 TESTO STERO NE, FREE( DIALY SIS) AND TOTAL (LC/M S/MS) testosterone , free 2.1 pg/mL 0.1-6. 4 This test was devel oped and its zofia tical perfo rmanc e kyle cteri stics have been deter mined by [employer] [facility] [place] [facility] [place]. It has not been clear ed or appro nae by the U.S. Food and Drug Admin istra tion. This assay has been valid ated pursu ant to the CLIA regul ation s and is used for clini rajendra purpo ses. Perfo rming Organ izati on Infor matio n: Site ID: AMD Name: [facility] [place] [facility] tute Addre ss: [id number] [facility] [employer] [place], [place] Direc tor: Robin Cartagena MD PhD Not Available [facility] (Lab) [address], [place], [address], 01/31/2025 15:43:37 02/08/20 25 02/07/2025 US, pelvi s No observ ation record ed. [facility] [address], [place], [address], 02/07/2025 13:32:54 02/08/20 25 02/07/2025 US, trans vagin al No observ ation record ed. [facility] [address], [place], [address], 02/07/2025 13:33:04 02/08/20 25 02/07/2025 US, pelvi s No observ ation record ed. [email or web address] [address], [place], [address], 02/07/2025 22:14:50 Result Notes None recorded. Problems Name Problem SNOMED Code Status Onset Date Resolution Date Notes Provider Name and Address Organization Details Recorded Time Disorder of placenta 995197953 Completed bilobed - serial growth. Last done 10/15/23 Felicita harrell [facility] 4 09:48:54 Polyhydr amnios 41447264 Completed check at 34 weeks Along with growth - 10/15/23 u/s was WNL Felicita harrell [facility] 4 09:48:46 Kidney stone 73639998 Completed 7mm left side Patricio Aponte MD [address], [place], [address], [facility] 4 20:31:51 Herpes simplex 26563143 Completed pt says only oral-sp Perlita Wong CNM [address], [place], [address], [facility] 4 11:56:46 Herpes simplex 12653210 Active pt says only oral-sp Perlita Wong CNM [address], [place], [address], [facility] 4 11:56:46 Pregnanc y 92264769 Completed 202312/06/2023 Alhaji harrell, [facility] 4 13:33:01 Problem Notes None recorded. Procedures Surgical History Date Name Laterality Status Provider Name and Address Organization Details Recorded Time 02/09/20 25 Date of Last Pap Smear completed Monet Mendoza [facility] 03/06/2025 10:57:03 12/03/19 24 Caesarean Section completed Savanah Alvarez [facility] 12/09/2023 15:23:55 02/20/20 21 procedure on lower leg completed Yaquelin Ji [facility] 05/06/2023 12:04:51 02/20/20 21 extracorporeal shockwave lithotripsy of calculus of kidney completed Yaquelin Ji [facility] 05/06/2023 12:05:14 03/22/19 20 extraction of wisdom tooth completed Yaquelin Ji [facility] 05/27/2023 12:21:35 01/01/20 18 Tonsillectomy completed Yaquelin Ji [facility] 05/06/2023 12:04:19 Imaging Results None recorded. Procedure Notes None recorded. Medical Equipment None Reported. Allergies Allergen ID Allergen Name Allergen Category Reaction Reaction Severity Criticality Documentation Date Start Date Code Code System Note Provider Name and Address Organization Details Recorded Time 89420 grass pollen environme nt,medica tion Not available Not available Not available 07/22/2020 Janina Carlos [facility] 11:29:22 92215 cat's claw preparati on medicatio n facial swelling moderate Not available 07/22/2020 79556 3 RxNorm Janina Carlos [facility] 11:29:22 44058 Substance with sulfonami de structure and antibacte rial mechanism of action (substanc e) medicatio n facial swelling severe Not available 07/22/2020 85117 8003 SNOMED Janina Carlos [facility] 11:29:22 21282 Canis lupus familiari s extract environme nt facial swelling moderate Not available 07/22/2020 51237 4 RxNorm Janina Carlos [facility] 11:29:22 60872 coconut allergeni c extract food,medi cation abdominal pain moderate Not available 07/22/2020 18143 1 RxNorm Janina Carlos [facility] 11:29:22 90102 Reglan medicatio n Not available Not available Not available 05/06/2023 9230 RxNorm Yaquelin Ji [facility] 4 12:00:31 13355 gadobenat e dimeglumi ne medicatio n vomiting Not available [facility] 02/07/20252020 43176 RxNorm Not Available alia - External Data Service - prod 5 03:20:17 28532 Product containin g penicilli n (product) medicatio n Not available Not available Not available 02/07/20252024 44817 8001 SNOMED unrec ogniz ed react ion (text : Unkno wn, code: [id number]) (from [facility]) Not Available alia - External Data Service - prod 03:20:17 76284 metoclopr amide Not available anxiety itching Not available Not available high 02/07/20252021 6915 RxNorm Not Available alia - External Data Service - prod 03:20:17 Medications Name Sig Start Date Stop [...] and Address Organization Details Last Updated DateTime 01/25/2025 160.02 cm 39.3 kg/m2 094448.51 g 108/74 mm[Hg] Savanah Alvarez [facility] 01/25/2025 12:15:36 Social History Question Answer Notes LastModified by Organizat ion Details LastModified Time Tobacco Smoking Status Never Smoker Yaquelin harrell, [facility] 05/06/2023 12:03:54 Do You Have An Advance Directive? No Information n ot available 07/22/2020 If You Are , What Was Your Level Of Alcohol Consumption Prior To ? Occasional [email or web address] Information not available 05/06/2023 How Many Years Have You Consumed Alcohol? 5 [email or web address] Information not available 05/06/2023 Are You Blind [...] Or The Highest Degree You Have Received? MC68033-3 Information not available 07/22/2020 Are There Any [...] 07/22/2020 Do You Use Sunscreen Routinely? No Information not available 02/08/2025 Have You Used IV Drugs? No Information not available 07/22/2020 Do You Have Difficulty Walking Or Climbing Stairs? No Information not available 05/06/2023 Sex: Unknown Functional Status Question Answer Note LastModified by Organizat ion Details LastModified Time Do you use any illicit or recreational drugs? No Information not available 07/22/2020 What is your level of alcohol consumption? None [email or web address] Information not available 05/06/2023 Are you able to walk independently without assistance or assistive devices? YESWOREST Information not available 07/22/2020 Are you able to care for yourself independently? 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 No [email or web address] Information not available 05/06/2023 What is your exercise level? Occasional Information not available 07/22/2020 Mental Status Question Answer Note LastModified by Organization D etails LastModified Time Do you feel stressed (tense, restless, nervous, or anxious, or unable to sleep at night)? [id number] [email or web address] Information not available 08/22/2020 Family History Relationship Description Onset Age of this Age Resolved Age Notes LastModified by Organization Details LastModified Time Maternal Aunt Malignant neoplasm of breast [email or web address] Not available 2024 12:24:48 Paternal Grandfather Hypercholest erolemia Not available 2020 11:29:26 Paternal Grandfather Heart disease Not available 2020 11:29:26 Maternal Grandmother Disorder of lung Not available 2020 11:29:26 Maternal Grandmother Malignant neoplasm of lung Not available 2020 11:29:26 Maternal Grandmother Hypertensive disorder Not available 2020 11:29:26 Maternal Grandmother Diabetes mellitus Not available 2020 11:29:26 Maternal Grandmother Malignant neoplasm of breast [email or web address] Not available 2024 12:24:48 Maternal Grandmother Cerebrovascu lar accident Not available 05/ 05/2020 11:29:26 Mother Depressive disorder Not available [...] ICD10 Code Diagnosis IMO Codes Diagnosis Note [id number] Patricio Aponte MD [facility] [address] [address] 01/25/2025 11:55:56 01/25/2025 16:53:19 Abnormal uterine bleeding [id number] 9100 N93.9 [id number] this patient is a 30-year-ol d female [...] the patient's care regarding abnormal uterine bleeding. Health Concerns Section Related Observation LastModified by Organization Detai ls LastModified Time None Recorded Concern Status LastModified by Organization Details LastModified Time None Recorded Payers Encounter Date Sequence Insurance Name Policy Number Policy [place] Covered Member ID [place] Member ID Guarantor Name 01/25/2025 1 [facility] [id number] Vineet Sharma [id number] Notes Date Note Type Note Provider Name and Address Organization Details Recorded Time 01/25/2025 text/html this patient is a 30-year-old female presents for abnormal uterine bleeding. She has irregularly irregular bleeding. She has no premenstrual symptoms. Her menses or vaginal bleeding is very unpredictable. She occasionally gets a positive ovulation predictor kit. Ovulation [...] to evaluate her abnormal uterine bleeding and anovulation. We are going to obtain laboratory evaluation and ultrasound. She will return to discuss those results. We will consider evaluation of infertility at that time. We spent over 20 minutes on the patient's care regarding abnormal uterine bleeding. Patricio Aponte MD [address], [place], [address], [facility] 01/25/2025 16:49:43 OBGyn Episode No OBEpisode recorded.
--- OUTSIDE RECORDS SUMMARY | 2025-03-11 08:06 | XMS_ITS | Continuity of Care Document ---
Author Organization [facility] Address [address] [place] [address] [place] [address] Care Team Providers Care Fifth Hand Name Role Phone MEDINA CASTAÑEDA Primary Care Provider Assessment No assessment recorded. Plan of Treatment Reminders Order Date Submit Date Provider Last Modified By Organization Details Last Modified Time Details Appointments None recorded. Lab None recorded. Referral None recorded. Procedures None recorded. Surgeries None recorded. Imaging US, pelvis 2024 025 [address], [address], [place], [address], 22:30:39 US, transvagina l [address], [address], [place], [address], 22:30:39 Medication Orders None recorded. Patient TargetsNo targets recorded. Patient InstructionsNo instructions recorded. Reason for Referral None Reported. Results Created Date Observation Date Name Description Value Unit Range Abnormal Flag Note LastModifiedBy Organization Detail LastModifiedTime 01/26/2001/25/2025 CBC (HEMO GRAM) WBC 8.2 10'3/ uL 3.5-10 .5 Not Available [facility] (Lab) [address], [place], [address], 01/31/2025 15:43:33 01/26/20 25 01/25/2025 CBC (HEMO GRAM) RBC 4.99 10'6/ uL (based on docume nted legal sex) 3.80-5 .20 Not Available [facility] (Lab) [address] [facility], [place], [address], 01/31/2025 15:43:33 01/26/20 25 01/25/2025 CBC (HEMO GRAM) HGB 12.9 g/dL (based on docume nted legal sex) 11.6-1 5.4 Not Available [facility] (Lab) [address] [facility] [address] [facility], [place], [address], 01/31/2025 15:43:33 01/26/20 25 01/25/2025 CBC (HEMO GRAM) HCT 41.1 % (based on docume nted legal sex) 34.0-4 5.0 Not Available [facility] (Lab) [address] [place], [address], 01/31/2025 15:43:33 01/26/20 25 01/25/2025 CBC (HEMO GRAM) MCV 82.4 fL 80.0-9 9.0 Not Available [facility] (Lab) [address] [facility] [address] [facility], [place], [address], 01/31/2025 15:43:33 01/26/20 25 01/25/2025 CBC (HEMO GRAM) MCH 25.9 pg 27.0-3 4.0 low Not Available [facility] (Lab) [address] [place], [address], 01/31/2025 15:43:33 01/26/20 25 01/25/2025 CBC (HEMO GRAM) MCHC 31.4 g/dL 32.0-3 5.5 low Not Available [facility] (Lab) [address] [place], [address], 01/31/2025 15:43:33 01/26/20 25 01/25/2025 CBC (HEMO GRAM) RDW 15.1 % 11.0-1 5.0 high Not Available [facility] (Lab) [address], [place], [address], 01/31/2025 15:43:33 01/26/20 25 01/25/2025 CBC (HEMO GRAM) plt 376 10'3/ uL 150-40 0 Not Available [facility] (Lab) [address] [facility] [address] [facility], [place], [address], 01/31/2025 15:43:33 01/26/20 25 01/25/2025 CBC (HEMO GRAM) MPV 10.3 fL 8.8-12 .1 Not Available [facility] (Lab) [address] [facility] [address] [facility], [place], [address], 01/31/2025 15:43:33 01/26/20 25 01/25/2025 CBC (HEMO GRAM) NRBC's 0.0 % 0.0 Not Available [facility] (Lab) [address] [facility] [address] [facility], [place], [address], 01/31/2025 15:43:33 01/26/20 25 01/25/2025 CBC (HEMO [...] spencer book. nm.or g/gen derx Not Available [facility] (Lab) [address], [place], [address], 01/31/2025 15:43:33 01/26/20 25 01/25/2025 DHEA SULFA TE DHEA-sulfate 243 ug/dL Femal e Range s Age(y ) Range (ug/d L) 10-15 34-28 0 15-20 65-36 8 20-25 148-4 07 25-35 99-34 0 35-45 61-33 7 45-55 35-25 6 55-65 19-20 5 65-75 9-246 > 75 12-15 4 Not Available [facility] (Lab) [address] [facility] [address] [facility], [place], [address], 01/31/2025 15:43:33 01/26/20 25 01/25/2025 TSH, REFLE X FREE T4 TSH 2.18 uIU/m L 0.30-5 .33 Not Available [facility] (Lab) [address] [facility] [address], [place], [address], 01/31/2025 15:43:34 01/26/20 25 01/25/2025 PROGE STERO [...] Trime ster 58.70 -214. 00 Not Available [facility] (Lab) [address] [facility] [address] [facility], [place], [address], 01/31/2025 15:43:35 01/26/20 25 01/25/2025 PROLA CTIN prolactin, total 7.34 NG/mL 4.79-2 3.30 The test metho d is elect yuniel milum inesc ence immun oassa y perfo rmed on the Yuniel Roque e801. Value s obtai jace with diffe rent assay metho ds by other labor atori es canno t be used inter esparza eably . Not Available [facility] (Lab) [address] [place], [address], 01/31/2025 15:43:35 01/26/20 25 01/25/2025 FSH, LH, ESTRA DIOL estradiol 20.4 pg/mL The test metho d is elect yuniel milum inesc ence immun oassa y perfo rmed on the Yuniel Roque e801. Value s obtai jace with diffe rent assay metho ds by other labor atori es canno t be used inter [facility] . Femal e Estra diol Range s: Folli cular phase 12.4- 233 pg/mL Ovula tion phase 41.0- 398 pg/mL Lutea l phase 22.3- 341 pg/mL Postm enopa usal <5-13 8 pg/mL Healt hy Pregn ant Women 1st Trime ster 154-3 243 pg/mL 2nd Trime ster 1561- 80186 pg/mL 3rd Trime ster 8525- >3000 0 pg/mL Not Available [facility] (Lab) [address] [place], [address], 01/31/2025 15:43:36 01/26/20 25 01/25/2025 FSH, LH, ESTRA DIOL FSH 7.4 mIU/m L The test metho d is elect yuniel milum inesc ence immun oassa y perfo rmed on the Yuniel Roque e801. Value s obtai jace with diffe rent assay metho ds by other labor atori es canno t be used inter [facility] . Femal es Folli cular : 3.5-1 2.5 mIU/m L Ovula tion: 4.7-2 1.5 mIU/m L Lutea l: 1.7-7 .7 mIU/m L Postm enopa use: 25.8- 134.8 mIU/m L Not Available [facility] (Lab) [address] [place], [address], 01/31/2025 15:43:36 01/26/20 25 01/25/2025 FSH, LH, [...] use: 7.7-5 8.5 mIU/m L Not Available [facility] (Lab) [address] [place], [address], 01/31/2025 15:43:36 01/26/20 25 01/25/2025 HUMAN SEX HORMO NE DERRICK NG GLOBU RENE sex hormone binding globulin 34.0 nmole s/L 18.2-1 35.5 Not Available [facility] (Lab) [address] [place], [address], 01/31/2025 15:43:36 01/26/20 25 01/25/2025 TESTO STERO NE, FREE( DIALY SIS) AND TOTAL (LC/M S/MS) testosterone , total 17 NG/dL 2-45 For addit ional infor lillian valente e refer to http: //[facility] leslee n.que stdia gnost ics.c om/fa q/ Total Testo stero neLCM [facility] Q165 (This link is being provi [...] for clini rajendra purpo ses. Not Available [facility] (Lab) [address] [facility], [place], [address], 01/31/2025 15:43:37 01/26/20 25 01/25/2025 TESTO STERO NE, FREE( DIALY SIS) AND TOTAL (LC/M S/MS) testosterone , free 2.1 pg/mL 0.1-6. 4 This test was devel oped and its zofia tical perfo rmanc e kyle cteri stics have been deter mined by [employer] [facility] [place], [place]. It has not been clear ed or appro nae by the U.S. Food and Drug Admin istra tion. This assay has been valid ated pursu ant to the CLIA regul ation s and is used for clini rajendra purpo ses. Perfo rming Organ izati on Infor matio n: Site ID: AMD Name: [employer] [facility] Zoran [facility] Insti vasile Addre ss: [id number] [place], [place] Direc tor: Robin Cartagena MD PhD Not Available [facility] (Lab) [address] [facility] [address], [place], [address], 01/31/2025 15:43:37 02/08/20 25 02/07/2025 US, pelvi s No observ ation record ed. [facility] [address], [place], [address], 02/07/2025 13:32:54 02/08/20 25 02/07/2025 US, trans vagin al No observ ation record ed. [facility] [address], [place], [address], 02/07/2025 13:33:04 02/08/20 25 02/07/2025 US, pelvi s No observ ation record ed. [email or web address] Kiana [address] [place] [address] [address], [place], [address], 02/07/2025 22:14:50 Result Notes None recorded. Problems Name Problem SNOMED Code Status Onset Date Resolution Date Notes Provider Name and Address Organization Details Recorded Time Disorder of placenta 470809928 Completed bilobed - serial growth. Last done 10/15/23 Felicita Best [facility], [facility] 4 09:48:54 Polyhydr amnios [id number] Completed check at 34 weeks Along with growth - 10/15/23 u/s was WNL Felicita Best [facility], [facility] 4 09:48:46 Kidney stone 23507261 Completed 7mm left side Patricio Aponte MD [address], [place], [address], [facility] 4 20:31:51 Herpes simplex 11160637 Completed pt says only oral-sp Perlita Wong CNM [address], [place], [address], [facility] 4 11:56:46 Herpes simplex 04860897 Active pt says only oral-sp Perlita Wong CNM [address], [place], [address], [facility] 4 11:56:46 Pregnanc y [id number] Completed 202312/06/2023 Alhaji Colin [facility], [facility] 4 13:33:01 Problem Notes None recorded. Procedures Surgical History Date Name Laterality Status Provider Name and Address Organization Details Recorded Time 02/09/20 25 Date of Last Pap Smear completed Monet Mendoza [facility] 03/06/2025 10:57:03 12/03/19 24 Caesarean Section completed Savanah Alvarez [facility] 12/09/2023 15:23:55 02/20/20 21 procedure on lower leg completed [facility] 05/06/2023 12:04:51 02/20/20 21 extracorporeal shockwave lithotripsy of calculus of kidney completed [facility] 05/06/2023 12:05:14 03/22/19 20 extraction of wisdom tooth completed [facility] 05/27/2023 12:21:35 03/22/19 18 Tonsillectomy completed [facility] 05/06/2023 12:04:19 Imaging Results None recorded. Procedure Notes None recorded. Medical Equipment None Reported. Allergies Allergen ID Allergen Name Allergen Category Reaction Reaction Severity Criticality Documentation Date Start Date Code Code System Note Provider Name and Address Organization Details Recorded Time 58493 grass pollen environme nt,medica tion Not available Not available Not available 07/22/2020 Janina Carlos [facility] 11:29:22 84156 cat's claw preparati on medicatio n facial swelling moderate Not available 07/22/2020 63067 3 RxNorm Janina Carlos [facility] 11:29:22 79085 Substance with sulfonami de structure and antibacte rial mechanism of action (substanc e) medicatio n facial swelling severe Not available 07/22/2020 89744 8003 SNOMED Janina Carlos [facility] 11:29:22 62066 Canis lupus familiari s extract environme nt facial swelling moderate Not available 07/22/2020 43849 4 RxNorm Janina Terrance [facility] 11:29:22 21908 coconut allergeni c extract food,medi cation abdominal pain moderate Not available 07/22/2020 97852 1 RxNorm Janina harrell, [facility] 11:29:22 54486 Reglan medicatio n Not available Not available Not available 05/06/2023 9230 RxNorm Yaquelin Ji [facility] 4 12:00:31 31201 gadobenat e dimeglumi ne medicatio n vomiting Not available [facility] 02/07/20252020 52003 RxNorm Not Available [place] - External Data Service - prod 5 03:20:17 14349 Product containin g penicilli n (product) medicatio n Not available Not available Not available 02/07/20252024 62826 8001 SNOMED unrec ogniz ed react ion (text : Unkno wn, code: [id number]) ([facility]) Not Available [place] - External Data Service - prod 03:20:17 30407 metoclopr amide Not available anxiety itching Not available Not available [facility] 02/07/20252021 6915 RxNorm Not Available [place] - External Data Service - prod 03:20:17 [...] Not Available Not Available Not Available Vitals None Recorded Social History Question Answer Notes LastModified by Organizat ion Details LastModified Time Tobacco Smoking Status Never Smoker Yaquelin Ji [facility] 05/06/2023 12:03:54 Do You Have An Advance Directive? No Information n ot available 07/22/2020 If You Are , What Was Your Level Of Alcohol Consumption Prior To ? Occasional [email or web address] Information not available 05/06/2023 How Many Years Have You Consumed Alcohol? 5 [email or web address] Information not available 05/06/2023 Are You Blind [...] Or The Highest Degree You Have Received? [id number] Information not available 07/22/2020 Are There Any [...] 07/22/2020 Do You Use Sunscreen Routinely? No [email or web address] Information not available 02/08/2025 Have You Used IV Drugs? No Information not available 07/22/2020 Do You Have Difficulty Walking Or Climbing Stairs? No [email or web address] Information not available 05/06/2023 Sex: Unknown Functional Status Question Answer Note LastModified by Organizat ion Details LastModified Time Do you use any illicit or recreational drugs? No Information not available 07/22/2020 What is your level of alcohol consumption? None [email or web address] Information not available 05/06/2023 Are you able to walk independently without assistance or assistive devices? [email or web address] Information not available 07/22/2020 Are you able to care for yourself independently? 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 No [email or web address] Information not available 05/06/2023 What is your exercise level? Occasional Information not available 07/22/2020 Mental Status Question Answer Note LastModified by Organization D etails LastModified Time Do you feel stressed (tense, restless, nervous, or anxious, or unable to sleep at night)? [id number] [email or web address] Information not available 08/22/2020 Family History Relationship Description Onset Age of this Age Resolved Age Notes LastModified by Organization Details LastModified Time Maternal Aunt Malignant neoplasm of breast [email or web address] Not available 2024 12:24:48 Paternal Grandfather Hypercholest erolemia Not available 2020 11:29:26 Paternal Grandfather Heart disease Not available 2020 11:29:26 Maternal Grandmother Disorder of lung Not available 2020 11:29:26 Maternal Grandmother Malignant neoplasm of lung Not available 2020 11:29:26 Maternal Grandmother Hypertensive disorder Not available 2020 11:29:26 Maternal Grandmother Diabetes mellitus Not available 2020 11:29:26 Maternal Grandmother Malignant neoplasm of breast [email or web address] Not available 2024 12:24:48 Maternal Grandmother Cerebrovascu lar accident Not available 05/2020 11:29:26 Mother Depressive disorder Not available 2020 11:29:26 Maternal Grandfather Hypertensive disorder Not available 2020 11:29:26 Medical History Condition Response Allergies (Food, seasonal, environmental ) Y Other N Drug/Latex Allergies/Reactions Y Breast Cancer N Blood Transfusion N Lung Disease N Dermatologic Disorders N Defects or Inherited Disease N Breast Problem Y Gestational Diabetes N Hematologic disorders N Anesthesia Complications N History of STI Y Deep Vein Thrombosis N Polycystic ovary syndrome N Anxiety Disorder Y Autoimmune disease N Arthritis N Polyps N Infertility N History of abnormal pap N Acid Reflux (GERD) N Cancer N Varicosities N Stroke N Neurologic/Epilepsy Y Endometriosis N High Cholesterol N Headaches Y Fibromyalgia N Kidney Disease N Heart Problems N Thyroid [...] ICD10 Code Diagnosis IMO Codes Diagnosis Note [id number] Patricio Aponte MD [place] [address] [address] 01/25/2025 11:55:56 01/25/2025 16:53:19 Abnormal uterine bleeding [id number] 9100 N93.9 [id number] this patient is a 30-year-ol d female [...] the patient's care regarding abnormal uterine bleeding. [id number] Patricio Aponte MD [place] [address] [address] 02/07/2025 12:23:07 02/07/2025 13:15:01 Abnormal uterine bleeding [id number] 9100 N93.9 [id number] this patient is a 30-year-ol d female [...] Member ID [place] Member ID Guarantor Name 02/07/2025 1 [facility] [id number] Vineet Shrama [id number] Jane Beltran [facility] OBG[facility] Episode No OBEpisode recorded.
--- OUTSIDE RECORDS SUMMARY | 2025-03-11 08:06 | XMS_ITS | Continuity of Care Document ---
Author Organization [facility] Address [address] [place] [address] Care Team Providers Care Home Restoration Service Supervisor Name Role Phone MEDINA CASTAÑEDA Primary Care Provider Assessment No assessment recorded. Plan of Treatment Reminders Order Date Submit Date Provider Last Modified By Organization Details Last Modified Time Details Appointments None recorded. Lab progesteron e, serum 2024 025 [facility] (Lab), [address] [place], [address], 17:34:16 Referral None recorded. Procedures None recorded. Surgeries None recorded. Imaging None recorded. Medication Orders letrozole 2.5 mg tablet 2024 025 [facility] [id number] In [facility], [address], [place], [address], 5 17:33:42 progesteron e micronized 200 mg capsule 2024 025 [facility] [id number] In [facility], [address], [place], [address], 5 17:33:42 Patient TargetsNo targets recorded. Patient InstructionsNo instructions recorded. Reason for Referral None Reported. Results Created Date Observation Date Name Description Value Unit Range Abnormal Flag Note LastModifiedBy Organization Detail LastModifiedTime 01/26/20 25 01/25/2025 CBC (HEMO GRAM) WBC 8.2 10'3/ uL 3.5-10 .5 Not Available [facility] (Lab) [address], [place], [address], 01/31/2025 15:43:33 01/26/20 25 01/25/2025 CBC (HEMO GRAM) RBC 4.99 10'6/ uL (based on docume nted legal sex) 3.80-5 .20 Not Available [facility] (Lab) [address], [place], [address], 01/31/2025 15:43:33 01/26/20 25 01/25/2025 CBC (HEMO GRAM) HGB 12.9 g/dL (based on docume nted legal sex) 11.6-1 5.4 Not Available [facility] (Lab) [address], [place], [address], 01/31/2025 15:43:33 01/26/20 25 01/25/2025 CBC (HEMO GRAM) HCT 41.1 % (based on docume nted legal sex) 34.0-4 5.0 Not Available [facility] (Lab) [address], [place], [address], 01/31/2025 15:43:33 01/26/20 25 01/25/2025 CBC (HEMO GRAM) MCV 82.4 fL 80.0-9 9.0 Not Available [facility] (Lab) [address] [place], [address], 01/31/2025 15:43:33 01/26/20 25 01/25/2025 CBC (HEMO GRAM) MCH 25.9 pg 27.0-3 4.0 low Not Available [facility] (Lab) [address] [place], [address], 01/31/2025 15:43:33 01/26/20 25 01/25/2025 CBC (HEMO GRAM) MCHC 31.4 g/dL 32.0-3 5.5 low Not Available [facility] (Lab) [address] [place], [address], 01/31/2025 15:43:33 01/26/20 25 01/25/2025 CBC (HEMO GRAM) RDW 15.1 % 11.0-1 5.0 high Not Available [facility] (Lab) [address], [place], [address], 01/31/2025 15:43:33 01/26/20 25 01/25/2025 CBC (HEMO GRAM) plt 376 10'3/ uL 150-40 0 Not Available [facility] (Lab) [address], [place], [address], 01/31/2025 15:43:33 01/26/20 25 01/25/2025 CBC (HEMO GRAM) MPV 10.3 fL 8.8-12 .1 Not Available [facility] (Lab) [address], [place], [address], 01/31/2025 15:43:33 01/26/20 25 01/25/2025 CBC (HEMO GRAM) NRBC's 0.0 % 0.0 Not Available [facility] (Lab) [address], [place], [address], 01/31/2025 15:43:33 01/26/20 25 01/25/2025 CBC (HEMO [...] spencer book. nm.or g/gen derx Not Available [facility] (Lab) [address], [place], [address], 01/31/2025 15:43:33 01/26/20 25 01/25/2025 DHEA SULFA TE DHEA-sulfate 243 ug/dL Femal e Range s Age(y ) Range (ug/d L) 10-15 34-28 0 15-20 65-36 8 20-25 148-4 07 25-35 99-34 0 35-45 61-33 7 45-55 35-25 6 55-65 19-20 5 65-75 9-246 > 75 12-15 4 Not Available [facility] (Lab) [address], [place], [address], 01/31/2025 15:43:33 01/26/20 25 01/25/2025 TSH, REFLE X FREE T4 TSH 2.18 uIU/m L 0.30-5 .33 Not Available [facility] (Lab) [address], [place], [address], 01/31/2025 15:43:34 01/26/20 25 01/25/2025 PROGE STERO [...] Trime ster 58.70 -214. 00 Not Available [facility] (Lab) [address], [place], [address], 01/31/2025 15:43:35 01/26/20 25 01/25/2025 PROLA CTIN prolactin, total 7.34 NG/mL 4.79-2 3.30 The test metho d is elect yuniel milum inesc ence immun oassa y perfo rmed on the Yuniel Roque e801. Value s obtai jace with diffe rent assay metho ds by other labor atori es canno t be used inter [facility] . Not Available [facility] (Lab) [address] [place], [address], 01/31/2025 15:43:35 01/26/20 25 01/25/2025 FSH, LH, ESTRA DIOL estradiol 20.4 pg/mL The test metho d is elect yuniel milum inesc ence immun oassa y perfo rmed on the Yuniel Roque e801. Value s obtai jace with diffe rent assay metho ds by other labor atori es canno t be used inter [facility] . Femal e Estra diol Range s: Folli cular phase 12.4- 233 pg/mL Ovula tion phase 41.0- 398 pg/mL Lutea l phase 22.3- 341 pg/mL Postm enopa usal <5-13 8 pg/mL Healt hy Pregn ant Women 1st Trime ster 154-3 243 pg/mL 2nd Trime ster 1561- 40586 pg/mL 3rd Trime ster 8525- >3000 0 pg/mL Not Available [facility] (Lab) [address] [place], [address], 01/31/2025 15:43:36 01/26/20 25 01/25/2025 FSH, LH, ESTRA DIOL FSH 7.4 mIU/m L The test metho d is elect yuniel milum inesc ence immun oassa y perfo rmed on the Yuniel Roque e801. Value s obtai jace with diffe rent assay metho ds by other labor atori es canno t be used inter [facility] . Femal es Folli cular : 3.5-1 2.5 mIU/m L Ovula tion: 4.7-2 1.5 mIU/m L Lutea l: 1.7-7 .7 mIU/m L Postm enopa use: 25.8- 134.8 mIU/m L Not Available [facility] (Lab) [address] [place], [address], 01/31/2025 15:43:36 01/26/20 25 01/25/2025 FSH, LH, [...] use: 7.7-5 8.5 mIU/m L Not Available [facility] (Lab) [address] [place], [address], 01/31/2025 15:43:36 01/26/20 25 01/25/2025 HUMAN SEX HORMO NE DERRICK NG GLOBU RENE sex hormone binding globulin 34.0 nmole s/L 18.2-1 35.5 Not Available [facility] (Lab) [address] [place], [address], 01/31/2025 15:43:36 01/26/20 25 01/25/2025 TESTO STERO NE, FREE( DIALY SIS) AND TOTAL (LC/M S/MS) testosterone , total 17 NG/dL 2-45 For addit ional infor lillian valente e refer to http: //inessa camilo n.que stdia gnost ics.c om/fa q/ Total Testo stero neLCM SMSFA Q165 (This link is being provi ded for infor rosa mederos/ educa wandy l purpo ses only. ) This test was devel oped and its zofia tical perfo rmanc e kyle cteri stics have been deter mined by [facility] [place], [place]. It has not been clear ed or appro nae by the U.S. Food and Drug Admin istra tion. This assay has been valid ated pursu ant to the CLIA regul ation s and is used for clini rajendra purpo ses. Not Available [facility] (Lab) [address], [place], [address], 01/31/2025 15:43:37 01/26/20 25 01/25/2025 TESTO STERO NE, FREE( DIALY SIS) AND TOTAL (LC/M S/MS) testosterone , free 2.1 pg/mL 0.1-6. 4 This test was namita de and its zofia tical perfo rmanc e kyle cteri stics have been deter mined by [employer] Vania elaine Zoran [place], [place]. It has not been clear ed or appro nae by the U.S. Food and Drug Admin istra tion. This assay has been valid ated pursu ant to the CLIA regul ation s and is used for clini rajendra purpo ses. Perfo rming Organ izati on Infor matio n: Site ID: AMD Name: Brisa reddylinda elaine Zoran [facility] Addre ss: [id number] [place], [place] Direc tor: Robin Cartagena MD PhD Not Available [facility] (Lab) [address], [place], [address], 01/31/2025 15:43:37 02/08/2002/07/2025 [place], pelvi s No observ ation record ed. [facility] [address], [place], [address], 02/07/2025 13:32:54 02/08/20 25 02/07/2025 [place], trans jatin al No observ ation record ed. [facility] [address], [place], [address], 02/07/2025 13:33:04 02/08/20 25 02/07/2025 [place], brandon s No observ ation record ed. [email or web address] [address], [place], [address], 02/07/2025 22:14:50 Result Notes None recorded. Problems Name Problem SNOMED Code Status Onset Date Resolution Date Notes Provider Name and Address Organization Details Recorded Time Disorder of placenta 375243405 Completed bilobed - serial growth. Last done 10/15/23 Felicita Best [facility] [place] 4 09:48:54 Polyhydr amnios 09871019 Completed check at 34 weeks Along with growth - 10/15/23 u/s was WNL Felicita Best [facility] 4 09:48:46 Kidney stone 26652108 Completed 7mm left side Patricio Aponte MD [address], [place], [address], [facility] 4 20:31:51 Herpes simplex 74074696 Completed pt says only oral-sp Perlita Wong CNM [address], [place], [address], [facility] 4 11:56:46 Herpes simplex 35235858 Active pt says only oral-sp Perlita Wong CNM [address], [place], [address], [facility] 4 11:56:46 Pregnanc y 10397670 Completed 202312/06/20[facility] 13:33:01 Problem Notes None recorded. Procedures Surgical History Date Name Laterality Status Provider Name and Address Organization Details Recorded Time 02/09/20 Date of Last Pap Smear completed Monet Mendoza [facility] 03/06/2025 10:57:03 12/03/19 24 Caesarean Section completed Savanah Alvarez [facility] 12/09/2023 15:23:55 02/20/20 21 procedure on lower leg completed [facility] 05/06/2023 12:04:51 02/20/20 21 extracorporeal shockwave lithotripsy of calculus of kidney completed [facility] 05/06/2023 12:05:14 03/22/19 20 extraction of wisdom tooth completed [facility] 05/27/2023 12:21:35 03/22/19 18 Tonsillectomy completed [facility] 05/06/2023 12:04:19 Imaging Results None recorded. Procedure Notes None recorded. Medical Equipment None Reported. Allergies Allergen ID Allergen Name Allergen Category Reaction Reaction Severity Criticality Documentation Date Start Date Code Code System Note Provider Name and Address Organization Details Recorded Time 07412 grass pollen environme nt,medica tion Not available Not available Not available 07/22/2020 Janina Carlos [facility] 11:29:22 80912 cat's claw preparati on medicatio n facial swelling moderate Not available 07/22/2020 29968 3 RxNorm Janina Carlos [facility] 11:29:22 74312 Substance with sulfonami de structure and antibacte rial mechanism of action (substanc e) medicatio n facial swelling severe Not available 07/22/2020 76036 8003 SNOMED Janina Carlos [facility] 11:29:22 18336 Canis lupus familiari s extract environme nt facial swelling moderate Not available 07/22/2020 24392 4 RxNorm Janina Carlos [facility] 11:29:22 57575 coconut allergeni c extract food,medi cation abdominal pain moderate Not available 07/22/2020 04558 1 RxNorm Janina Carlos [facility] 1 11:29:22 10316 Reglan medicatio n Not available Not available Not available 05/06/2023 9230 RxNorm Yaquelin Ji [facility] 4 12:00:31 73417 gadobenat e dimeglumi ne medicatio n vomiting Not available high 02/07/20252020 48753 RxNorm Not Available [facility] - External Data Service - prod 5 03:20:17 58326 Product containin g penicilli n (product) medicatio n Not available Not available Not available 02/07/20252024 68394 8001 SNOMED unrec ogniz ed react ion (text : Unkno wn, code: 10101 [id number]) (from exter nal [facility] e) Not Available [facility] - External Data Service - prod 5 03:20:17 34492 metoclopr amide Not available anxiety itching Not available Not available [facility] 02/07/20252021 6915 RxNorm Not Available [place] - External Data Service - prod 5 [...] and Address Organization Details Last Updated DateTime 02/12/2025 160.02 cm 39.5 kg/m2 126232.1 g 132/81 mm[Hg] Savanah Alvarez [facility] 02/12/2025 17:08:27 Social History Question Answer Notes LastModified by Organizat ion Details LastModified Time Tobacco Smoking Status Never Smoker Yaquelin harrell, [facility] 05/06/2023 12:03:54 Do You Have An Advance Directive? No Information n ot available 07/22/2020 If You Are , What Was Your Level Of Alcohol Consumption Prior To ? Occasional [email or web address] Information not available 05/06/2023 How Many Years Have You Consumed Alcohol? 5 [email or web address] Information not available 05/06/2023 Are You Blind [...] Or The Highest Degree You Have Received? [id number] Information not available 07/22/2020 Are There Any [...] 07/22/2020 Do You Use Sunscreen Routinely? No [email or web address] Information not available 02/08/2025 Have You Used IV Drugs? No Information not available 07/22/2020 Do You Have Difficulty Walking Or Climbing Stairs? No [email or web address] Information not available 05/06/2023 Sex: Unknown Functional [...] able to care for yourself independently? 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 No [email or web address] Information not available 05/06/2023 What is your exercise level? Occasional Information not available 07/22/2020 Mental Status Question Answer Note LastModified by Organization D etails LastModified Time Do you feel stressed (tense, restless, nervous, or anxious, or unable to sleep at night)? [id number] [email or web address] Information not available 08/22/2020 Family History Relationship Description Onset Age of this Age Resolved Age Notes LastModified by Organization Details LastModified Time Maternal Aunt Malignant neoplasm of breast [email or web address] Not available 2024 12:24:48 Paternal Grandfather Hypercholest erolemia Not available 2020 11:29:26 Paternal Grandfather Heart disease Not available 2020 11:29:26 Maternal Grandmother Disorder of lung Not available 2020 11:29:26 Maternal Grandmother Malignant neoplasm of lung Not available 2020 11:29:26 Maternal Grandmother Hypertensive disorder Not available 2020 11:29:26 Maternal Grandmother Diabetes mellitus Not available 2020 11:29:26 Maternal Grandmother Malignant neoplasm of breast [email or web address] Not available 2024 12:24:48 Maternal Grandmother Cerebrovascu lar accident Not available 05/2020 11:29:26 Mother Depressive disorder Not available 2020 11:29:26 Maternal Grandfather Hypertensive disorder Not available 2020 11:29:26 Medical History Condition Response Allergies (Food, seasonal, environmental ) Y Other N Drug/Latex Allergies/Reactions Y Breast Cancer N Blood Transfusion N Dermatologic Disorders N Lung Disease N [...] ICD10 Code Diagnosis IMO Codes Diagnosis Note [id number] Patricio Aponte MD [facility] [address] [address] 01/25/2025 11:55:56 01/25/2025 16:53:19 Abnormal uterine bleeding [id number] 9100 N93.9 [id number] this patient is a 30-year-ol d female [...] the patient's care regarding abnormal uterine bleeding. [id number] Patricio Aponte MD [facility] [address] [address] 02/07/2025 12:23:07 02/07/2025 13:15:01 Abnormal uterine bleeding [id number] 9100 N93.9 [id number] this patient is a 30-year-ol d female [...] the patient's care regarding abnormal uterine bleeding. [id number] FRANCISCA ALVARADO NP [facility] [address] [address] 02/08/2025 09:00:33 02/08/2025 09:35:43 Well woman health examination 555741738 Z01.419 401503 Annual gynecologi rajendra exam performed. Patient will [...] w/ HPV collected STI testing - declined [id number] Patricio Aponte MD [facility] [address] [address] 02/12/2025 16:15:46 02/14/2025 16:18:40 Anovulation 36659649 N97.0 499950 Abnormal u terine bleeding 0755685841 9100 N93.9 [id number] this patient is a 30-year-ol d female with abnormal uterine bleeding. A long history of anovulator y bleeding. We performed laboratory evaluation and ultrasound . It is all essentiall y normal. There maybe a very small endometria l lesion at the fundal endometriu m. Patient would like to get again. We talked about induction of ovulation. Patient has a recent . She has been with the same partner for over 15 years, they never used any prevention of and they were only get able to get recently. She would like to be aggressive in in do some ovulation. We spent over 30 minutes on her care in total. I laid out the schedule for induction of ovulation. She is prescribed medication s. She understand s the risks, benefits, and alternativ es. She will return on day 28 of her scheduled. She will do a withdrawal bleed. She is going to do a day 23 progestero ne etc. partner to get semen analysis. Health Concerns Section Related Observation LastModified by Organization Detai ls LastModified Time None Recorded Concern Status LastModified by Organization Details LastModified Time None Recorded Payers Encounter Date Sequence Insurance Name Policy Number Policy [place] Covered Member ID [place] Member ID Guarantor Name 02/12/2025 1 [facility] [id number] Vineet Sharma [id number] Jane Notes Date Note Type Note Provider Name and Address Organization Details Recorded Time 02/12/2025 text/html this patient is a 30-year-old female with abnormal uterine bleeding. A long history of anovulatory bleeding. We performed laboratory evaluation and ultrasound. It is all essentially normal. There maybe a very small endometrial lesion at the fundal endometrium. Patient would like to get again. We talked about induction of ovulation. Patient has a recent . She has been with the same partner for over 15 years, they never used any prevention of and they were only get able to get recently. She would like to be aggressive in in do some ovulation. We spent over 30 minutes on her care in total. I laid out the schedule for induction of ovulation. She is prescribed medications. She understands the risks, benefits, and alternatives. She will return on day 28 of her scheduled. She will do a withdrawal bleed. She is going to do a day 23 progesterone etc. partner to get semen analysis. Patricio Aponte MD [address], [place], [address], [place] [facility] 02/14/2025 15:17:23 OBGyn Episode No OBEpisode recorded.
--- OUTSIDE RECORDS SUMMARY | 2025-03-11 08:06 | XMS_ITS | Continuity of Care Document ---
Author Organization [facility] Address [address] [place] [address] Care Team Providers Care Information Consultant Name Role Phone MEDINA CASTAÑEDA Primary Care Provider Assessment No assessment recorded. Plan of Treatment Reminders Order Date Submit Date Provider Last Modified By Organization Details Last Modified Time Details Appointments None recorded. Lab unlisted lab - [facility], DORI 2024 025 [facility] (Lab), [address] [place], [address], 14:38:14 Referral None recorded. Procedures None recorded. Surgeries None recorded. Imaging None recorded. Medication Orders fluconazole 150 mg tablet [address] [facility] [address] In [facility], [address] , [place], [address], 5 11:07:40 Patient TargetsNo targets recorded. Patient InstructionsNo instructions recorded. Reason for Referral None Reported. Results Created Date Observation Date Name Description Value Unit Range Abnormal Flag Note LastModifiedBy Organization Detail LastModifiedTime 03/06/2003/06/2025 [facility], DORI bacterial vaginosis (bv), tma Positi ve negati ve abnormal Not Available [facility] (Lab) [address] [place], [address], 03/07/2025 14:38:14 03/06/20 25 03/06/2025 [facility] SWAB [facility], DORI natasha species, tma Positi ve negati ve abnormal Not Available [facility] (Lab) [address] [place], [address], 03/07/2025 14:38:14 03/06/20 25 03/06/2025 [facility] natasha glabrata, tma Negati ve negati ve Not Available [facility] (Lab) [address] [place], [address], 03/07/2025 14:38:14 03/06/20 25 03/06/2025 [facility] trichomonas vaginalis, tma Negati ve negati ve Not Available [facility] (Lab) [address] [place], [address], 03/07/2025 14:38:14 03/06/20 25 03/06/2025 [facility] chlamydia trachomatis, PCR Negati ve negati ve Not Available [facility] (Lab) [address] [place], [address], 03/07/2025 14:38:14 03/06/20 25 03/06/2025 [facility] neisseria gonorrhoeae, PCR Negati ve negati ve Bacte rial vagin osis detec ts the follo wing bacte elizabeth assoc iated with bacte rial vagin osis (BV): Lacto bacil elliott (L. gasse ri, L. crisp atus and L. jense ted), Gardn erell a vagin beverly, and Atopo bium vagin ae. A singl e quali tativ e resul t is repor kin base on instr ument softw are to deter mine BV posit kamaljit or negat kamaljit statu s. The Dawna da speci es group tests for C. albic ans, C. tropi calis , C. parap anastacio is, C. dubli niens is. Testi ng is perfo rmed using the Trans cript ion Media kin Ampli ficat ion metho d. Tests for Dawna da glabr nereyda, Trich omona s vagin beverly, Chlam ydia trach omati s, and Neiss eria gonor rhoea e are also inclu ded in this panel . Not Available [facility] (Lab) [address], [place], [address], 03/07/2025 14:38:14 02/08/20 25 02/07/2025 US, pelvi s No observ ation record ed. [facility] [address], [place], [address], 02/07/2025 13:32:54 02/08/20 25 02/07/2025 US, trans vagin al No observ ation record ed. [facility] [address], [place], [address], 02/07/2025 13:33:04 02/08/20 25 02/07/2025 US, pelvi s No observ ation record ed. [email or web address] Kiana [address] [place] [address], [place], [address], 02/07/2025 22:14:50 Result Notes None recorded. Problems Name Problem SNOMED Code Status Onset Date Resolution Date Notes Provider Name and Address Organization Details Recorded Time Disorder of placenta 244570239 Completed bilobed - serial growth. Last done 10/15/23 Felicita harrell [facility] 4 09:48:54 Polyhydr amnios 96935436 Completed check at 34 weeks Along with growth - 10/15/23 u/s was WNL Felicita harrell [facility] 4 09:48:46 Kidney stone 17712511 Completed 7mm left side Patricio Aponte MD [address], [place], [address], [place] [facility] 4 20:31:51 Herpes simplex 22815349 Completed pt says only oral-sp Perlita Wong CNM [address], [place], [address], [facility] 4 11:56:46 Herpes simplex 89709142 Active pt says only oral-sp Perlita Wong CNM [address], [place], [address], [facility] 4 11:56:46 Pregnanc y 53923498 Completed 202312/06/2023 Alhaji harrell, [facility] 4 13:33:01 Problem Notes None recorded. Procedures Surgical History Date Name Laterality Status Provider Name and Address Organization Details Recorded Time 02/09/20 25 Date of Last Pap Smear completed Monet Mendoza [facility] 03/06/2025 10:57:03 12/03/19 24 Caesarean Section completed Savanah Alvarez [facility] 12/09/2023 15:23:55 02/20/20 21 [facility] lower [facility] 12:04:51 02/20/20 21 extracorporeal shockwave lithotripsy of calculus of kidney [facility] 05/06/2023 12:05:14 03/22/19 20 extraction of wisdom tooth completed Yaquelin Ji [facility] 05/27/2023 12:21:35 03/22/19 18 [facility]lect[facility] 05/06/2023 12:04:19 Imaging Results None recorded. Procedure Notes None recorded. Medical Equipment None Reported. Allergies Allergen ID Allergen Name Allergen Category Reaction Reaction Severity Criticality Documentation Date Start Date Code Code System Note Provider Name and Address Organization Details Recorded Time 74359 grass pollen environme nt,medica tion Not available Not available Not available 07/22/2020 Janina Carlos [facility], [facility] 1 11:29:22 43405 cat's claw preparati on medicatio n facial swelling moderate Not available 07/22/2020 78106 3 RxNorm Janina Carlos [facility], [facility] 11:29:22 28908 Substance with sulfonami de structure and antibacte rial mechanism of action (substanc e) medicatio n facial swelling severe Not available 07/22/2020 32871 8003 SNOMED Janina Carlos [facility], [facility] 11:29:22 30509 Canis lupus familiari s extract environme nt facial swelling moderate Not available 07/22/2020 35566 4 RxNorm Janina Carlos [facility], [facility] 11:29:22 27139 coconut allergeni c extract food,medi cation abdominal pain moderate Not available 07/22/2020 04388 1 RxNorm Janina Carlos [facility], [facility] 11:29:22 32299 Reglan medicatio n Not available Not available Not available 05/06/2023 9230 RxNorm Yaquelin Ji [facility] 4 12:00:31 37461 gadobenat e dimeglumi ne medicatio n vomiting Not available high 02/07/20252020 16220 RxNorm Not Available alia - External Data Service - prod 5 03:20:17 50768 Product containin g penicilli n (product) medicatio n Not available Not available Not available 02/07/20252024 19121 8001 SNOMED unrec ogniz ed react ion (text : Unkno wn, code: [id number]) (from exter nal sourc e) Not Available alia - External Data Service - prod 5 03:20:17 54740 metoclopr amide Not available anxiety itching Not [...] and Address Organization Details Last Updated DateTime 03/06/2025 160.02 cm 40 kg/m2 544413.44 g 124/82 mm[Hg] Monet Kelly [facility] 03/06/2025 10:56:52 Social History Question Answer Notes LastModified by Organizat ion Details LastModified Time Tobacco Smoking Status Never Smoker Yaquelin harrell, [facility] 05/06/2023 12:03:54 Do You Have An Advance Directive? No Information n ot available 07/22/2020 If You Are , What Was Your Level Of Alcohol Consumption Prior To ? Occasional [email or web address] Information not available 05/06/2023 How Many Years Have You Consumed Alcohol? 5 [email or web address] Information not available 05/06/2023 Are You Blind [...] Or The Highest Degree You Have Received? [id number] Information not available 07/22/2020 Are There Any [...] is your level of alcohol consumption? None [email or web address] Information not available 05/06/2023 Are you able to walk independently without assistance or assistive devices? [email or web address] Information not available 07/22/2020 Are you able to care for yourself independently? 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 No [email or web address] Information not available 05/06/2023 What is your exercise level? Occasional Information not available 07/22/2020 Mental Status Question Answer Note LastModified by Organization D etails LastModified Time Do you feel stressed (tense, restless, nervous, or anxious, or unable to sleep at night)? [id number] [email or web address] Information not available 08/22/2020 Family History Relationship Description Onset Age of this Age Resolved Age Notes LastModified by Organization Details LastModified Time Maternal Aunt Malignant neoplasm of breast [email or web address] Not available 2024 12:24:48 Paternal Grandfather Hypercholest erolemia Not available 2020 11:29:26 Paternal Grandfather Heart disease Not available 2020 11:29:26 Maternal Grandmother Disorder of lung Not available 2020 11:29:26 Maternal Grandmother Malignant neoplasm of lung Not available 2020 11:29:26 Maternal Grandmother Hypertensive disorder Not available 2020 11:29:26 Maternal Grandmother Diabetes mellitus Not available 2020 11:29:26 Maternal Grandmother Malignant neoplasm of breast [email or web address] Not available 2024 12:24:48 Maternal Grandmother Cerebrovascu [...] ICD10 Code Diagnosis IMO Codes Diagnosis Note [id number] Patricio Aponte MD [place] [address] [address] 02/07/2025 12:23:07 02/07/2025 13:15:01 Abnormal uterine bleeding [id number] 9100 N93.9 [id number] this patient is a 30-year-ol d female [...] the patient's care regarding abnormal uterine bleeding. [id number] FRANCISCA ALVARADO NP [place] [address] [address] 02/08/2025 09:00:33 02/08/2025 09:35:43 Well woman health examination 526952308 Z01.419 047237 Annual gynecologi rajendra exam performed. Patient will [...] w/ HPV collected STI testing - declined [id number] Patricio Aponte MD [place] [address] [address] 02/12/2025 16:15:46 02/14/2025 16:18:40 Anovulation 43818541 N97.0 957624 Abnormal u terine bleeding 9274566318 9100 N93.9 072078 this patient is a 30-year-ol d female [...] ne etc. partner to get semen analysis. [id number] FRANCISCA ALVARADO NP [place] [address] [address] 03/06/2025 10:45:22 03/06/2025 11:09:20 Vaginal discharge 550917153 N89.8 26928 Reviewed the various causes of vaginal discharge and vaginitis symptoms, including both infectious (STD's, BV, yeast, others) and noninfecti ous (physiolog ic d/c, irritants/ allergens, DIV, others) causes.Dis cussed empirical treatment with fluconazol e for suspected yeast infection based on reported symptoms and physical exam findings.D iscussed vulvar care guidelines in addition to laundry/sk in irritants to avoid.Vagi nitis panel sent. Venereal d isease screening [id number] Z11.3 842130 Pt requested STI testing.Di scussed the various types of STDs, related symptoms and the potential consequenc es (including effects on fertility) of STD infections . Reviewed ways to limit exposure and prevention techniques . Health Concerns Section Related Observation LastModified by Organization Detai ls LastModified Time None Recorded Concern Status LastModified by Organization Details LastModified Time None Recorded Payers Encounter Date Sequence Insurance Name Policy Number Policy [place] Covered Member ID [place] Member ID Guarantor Name 03/06/2025 1 [facility] ([facility] [id number] Vineet Sharma [id number] Notes Date Note Type Note Provider Name a nd Address Organization Details Recorded Time 03/06/2025 text/html 30 y/o female presents with c/o vaginal discharge, itching, and odor x several weeks.Patient tried OTC monistat with no relief. FRANCISCA ALVARADO NP [address], [place], [address], [place] - [facility] 03/06/2025 11:26:17 OBGyn Episode No OBEpisode recorded.
--- OUTSIDE RECORDS SUMMARY | 2025-03-11 08:06 | XMS_ITS | Data Portability ---
Author Organization [facility] Address [address] [place] [address] Care Team Providers Care Pharmacovigilance Scientist Name Role Phone MEDINA CASTAÑEDA Primary Care Provider Assessment Encounter Date Assessment Date Assessment LastModified by Organization Details LastModified Time 02/08/2025 02/08/2025 Annual gynecological exam performed. Patient will come back in a year unless there are new symptoms. [email or web address] Not available 02/08/2025 09:15:44 Plan of Treatment Reminders Order Date Submit Date Provider Last Modified By Organization Details Last Modified Time Details Appointments None recorded. Lab unlisted lab - women's health swab plus, DORI 2024 025 [facility] (Lab), [address] [place], [address], 5 14:38:14 progesteron e, serum 2024 025 [facility] (Lab), [address] [place], [address], 5 17:34:16 pap, IG + reflex HPV if ASC-U - if positive HPV run subtyping 16,18/45 2024 025 [facility] (Lab), [address] [place], [address], 5 15:23:25 dhea-sulfat e, serum 2024 025 [facility] (Lab), [address], [place], [address], 5 15:43:34 hormone panel, serum or plasma 2024 025 [facility] (Lab), [address], [place], [address], 5 15:43:36 progesteron e, serum 2024 025 [facility] (Lab), [address], [place], [address], 5 15:43:35 prolactin, serum 2024 025 [facility] (Lab), [address], [place], [address], 5 15:43:35 shbg (sex hormone-bin ding globulin), serum 2024 025 [facility] (Lab), [address], [place], [address], 5 15:43:36 TSH, serum or plasma 2024 025 [facility] (Lab), [address], [place], [address], 5 15:43:34 testosteron e free/testos terone total, ratio, serum 2024 025 [facility] (Lab), [address], [place], [address], 5 15:43:37 CBC 2024 025 [facility] (Lab), [address], [place], [address], 5 15:43:33 Referral None recorded. Procedures None recorded. Surgeries None recorded. Imaging US, pelvis 2024 025 [email or web address] [address], [address], [place], [address], 22:30:39 US, transvagina l 2024 025 [email or web address] [address], [place], [address], 22:30:39 Medication Orders fluconazole 150 mg tablet 2024 025 [id number] [facility], [address], [place], [address], 11:07:40 letrozole 2.5 mg tablet 2024 025 [facility] [address] [facility], [address], [place], [address], 17:33:42 progesteron e micronized 200 mg capsule 2024 025 [facility] [address] [facility], [address], [place], [address], 17:33:42 Patient TargetsNo targets recorded. Patient InstructionsNo instructions recorded. Reason for Referral None Reported. Results Created Date Observation Date Name Description Value Unit Range Abnormal Flag Note LastModifiedBy Organization Detail LastModifiedTime 01/26/2001/25/2025 CBC (HEMO GRAM) WBC 8.2 10'3/ uL 3.5-10 .5 Not Available [facility] (Lab) [address], [place], [address], 01/31/2025 15:43:33 01/26/20 25 01/25/2025 CBC (HEMO GRAM) RBC 4.99 10'6/ uL (based on docume nted legal sex) 3.80-5 .20 Not Available [facility] (Lab) [address], [place], [address], 01/31/2025 15:43:33 01/26/20 25 01/25/2025 CBC (HEMO GRAM) HGB 12.9 g/dL (based on docume nted legal sex) 11.6-1 5.4 Not Available [facility] (Lab) [address] [facility], [place], [address], 01/31/2025 15:43:33 01/26/20 25 01/25/2025 CBC (HEMO GRAM) HCT 41.1 % (based on docume nted legal sex) 34.0-4 5.0 Not Available [facility] (Lab) [address] [facility], [place], [address], 01/31/2025 15:43:33 01/26/20 25 01/25/2025 CBC (HEMO GRAM) MCV 82.4 fL 80.0-9 9.0 Not Available [facility] (Lab) [address] [facility], [place], [address], 01/31/2025 15:43:33 01/26/20 25 01/25/2025 CBC (HEMO GRAM) MCH 25.9 pg 27.0-3 4.0 low Not Available [facility] (Lab) [address] [facility], [place], [address], 01/31/2025 15:43:33 01/26/20 25 01/25/2025 CBC (HEMO GRAM) MCHC 31.4 g/dL 32.0-3 5.5 low Not Available [facility] (Lab) [address] [place], [address], 01/31/2025 15:43:33 01/26/20 25 01/25/2025 CBC (HEMO GRAM) RDW 15.1 % 11.0-1 5.0 high Not Available [facility] (Lab) [address] [place], [address], 01/31/2025 15:43:33 01/26/20 25 01/25/2025 CBC (HEMO GRAM) plt 376 10'3/ uL 150-40 0 Not Available [facility] (Lab) [address] [facility], [place], [address], 01/31/2025 15:43:33 01/26/20 25 01/25/2025 CBC (HEMO GRAM) MPV 10.3 fL 8.8-12 .1 Not Available [facility] (Lab) [address] [facility], [place], [address], 01/31/2025 15:43:33 01/26/20 25 01/25/2025 CBC (HEMO GRAM) NRBC's 0.0 % 0.0 Not Available [facility] (Lab) [address] [facility], [place], [address], 01/31/2025 15:43:33 01/26/20 25 01/25/2025 CBC (HEMO [...] spencer book. nm.or g/gen derx Not Available [facility] (Lab) [address], [place], [address], 01/31/2025 15:43:33 01/26/20 25 01/25/2025 DHEA SULFA TE DHEA-sulfate 243 ug/dL Femal e Range s Age(y ) Range (ug/d L) 10-15 34-28 0 15-20 65-36 8 20-25 148-4 07 25-35 99-34 0 35-45 61-33 7 45-55 35-25 6 55-65 19-20 5 65-75 9-246 > 75 12-15 4 Not Available [facility] (Lab) [address] [facility], [place], [address], 01/31/2025 15:43:33 01/26/20 25 01/25/2025 TSH, REFLE X FREE T4 TSH 2.18 uIU/m L 0.30-5 .33 Not Available [facility] (Lab) [address] [facility], [place], [address], 01/31/2025 15:43:34 01/26/20 25 01/25/2025 PROGE STERO [...] Trime ster 58.70 -214. 00 Not Available [facility] (Lab) [address] [facility], [place], [address], 01/31/2025 15:43:35 01/26/20 25 01/25/2025 PROLA CTIN prolactin, total 7.34 NG/mL 4.79-2 3.30 The test metho d is elect yuniel milum inesc ence immun oassa y perfo rmed on the Yuniel Roque e801. Value s obtai jace with diffe rent assay metho ds by other labor atori es canno t be used inter esparza eably . Not Available [facility] (Lab) [address] [facility], [place], [address], 01/31/2025 15:43:35 01/26/20 25 01/25/2025 FSH, LH, ESTRA DIOL estradiol 20.4 pg/mL The test metho d is elect yuniel milum inesc ence immun oassa y perfo rmed on the Yuniel Roque e801. Value s obtai jace with diffe rent assay metho ds by other labor atori es canno t be used inter [facility] . Femal e Estra diol Range s: Folli cular phase 12.4- 233 pg/mL Ovula tion phase 41.0- 398 pg/mL Lutea l phase 22.3- 341 pg/mL Postm enopa usal <5-13 8 pg/mL Healt hy Pregn ant Women 1st Trime ster 154-3 243 pg/mL 2nd Trime ster 1561- 05828 pg/mL 3rd Trime ster 8525- >3000 0 pg/mL Not Available [facility] (Lab) [address] [place], [address], 01/31/2025 15:43:36 01/26/20 25 01/25/2025 FSH, LH, ESTRA DIOL FSH 7.4 mIU/m L The test metho d is elect yuniel milum inesc ence immun oassa y perfo rmed on the Yuniel Roque e801. Value s obtai jace with diffe rent assay metho ds by other labor atori es canno t be used inter [facility] . Femal es Folli cular : 3.5-1 2.5 mIU/m L Ovula tion: 4.7-2 1.5 mIU/m L Lutea l: 1.7-7 .7 mIU/m L Postm enopa use: 25.8- 134.8 mIU/m L Not Available [facility] (Lab) [address] [place], [address], 01/31/2025 15:43:36 01/26/20 25 01/25/2025 FSH, LH, [...] use: 7.7-5 8.5 mIU/m L Not Available [facility] (Lab) [address] [facility], [place], [address], 01/31/2025 15:43:36 01/26/20 25 01/25/2025 HUMAN SEX HORMO NE DERRICK NG GLOBU RENE sex hormone binding globulin 34.0 nmole s/L 18.2-1 35.5 Not Available [facility] (Lab) [address] [facility], [place], [address], 01/31/2025 15:43:36 01/26/20 25 01/25/2025 TESTO STERO [...] deter mined by [facility] [place], [place]. It has not been clear ed or appro nae by the U.S. Food and Drug Admin istra tion. This assay has been valid ated pursu ant to the CLIA regul ation s and is used for clini rajendra purpo ses. Not Available [facility] (Lab) [address] [place], [address], 01/31/2025 15:43:37 01/26/20 25 01/25/2025 TESTO STERO NE, FREE( DIALY SIS) AND TOTAL (LC/M S/MS) testosterone , free 2.1 pg/mL 0.1-6. 4 This test was namita de and its zofia tical perfo rmanc e kyle cteri stics have been deter mined by [facility] [place] [place], [place]. It has not been clear ed or appro nae by the U.S. Food and Drug Admin istra tion. This assay has been valid ated pursu ant to the CLIA regul ation s and is used for clini rajendra purpo ses. Perfo rming Organ izati on Infor matio n: Site ID: AMD Name: [facility] Addre ss: [id number] [address] [place], [place] Direc tor: Robin Cartagena MD PhD Not Available [facility] (Lab) [address] [place], [address], 01/31/2025 15:43:37 03/06/20 25 03/06/2025 WOMEN 'S HEALT H SWAB PLUS, DORI bacterial vaginosis (bv), tma Positi ve negati ve abnormal Not Available [facility] (Lab) [address] [place], [address], 03/07/2025 14:38:14 03/06/20 25 03/06/2025 [facility]OR[facility] natasha species, tma Positi ve negati ve abnormal Not Available [facility] (Lab) [address] [place], [address], 03/07/2025 14:38:14 03/06/20 25 03/06/2025 [facility] DORI natasha glabrata, tma Negati ve negati ve Not Available [facility] (Lab) [address] [place], [address], 03/07/2025 14:38:14 03/06/20 25 03/06/2025 WOMEN 'S HEALT H SWAB PLUS, DORI trichomonas vaginalis, tma Negati ve negati ve Not Available [facility] (Lab) [address] [facility], [place], [address], 03/07/2025 14:38:14 03/06/2003/06/2025 WOMEN 'S HEALT H SWAB PLUS, DORI chlamydia trachomatis, PCR Negati ve negati ve Not Available [facility] (Lab) [address] [facility], [place], [address], 03/07/2025 14:38:14 03/06/20 25 03/06/2025 WOMEN 'S HEALT H SWAB PLUS, DORI neisseria gonorrhoeae, PCR [...] ded in this panel . Not Available [facility] (Lab) [address] [facility], [place], [address], 03/07/2025 14:38:14 02/08/2002/07/2025 US, pelvi s No observ ation record ed. [facility] [address], [place], [address], 02/07/2025 13:32:54 02/08/20 25 02/07/2025 US, trans vagin al No observ ation record ed. [email or web address] [facility] [address], [place], [address], 02/07/2025 13:33:04 02/08/20 25 02/07/2025 US, pelvi s No observ ation record ed. [email or web address] [address], [place], [address], 02/07/2025 22:14:50 Result Notes None recorded. Problems Name Problem SNOMED Code Status Onset Date Resolution Date Notes Provider Name and Address Organization Details Recorded Time Disorder of placenta [id number] Completed bilobed - serial growth. Last done 10/15/23 Felicita harrell [facility] 4 09:48:54 Polyhydr amnios [id number] Completed check at 34 weeks Along with growth - 10/15/23 u/s was WNL Felicita harrell, [facility] 4 09:48:46 Kidney stone 31111865 Completed 7mm left side Patricio Marrero MD [address], [place], [address], [place] [facility] 4 20:31:51 Herpes simplex 05782105 Completed pt says only oral-sp Perlita Wong CNM [address], [place], [address], [place] [facility] 4 11:56:46 Herpes simplex 57354830 Active pt says only oral-sp Perlita Wong CNM [address], [place], [address], [place] [facility] 4 11:56:46 Pregnanc y 60942552 Completed 202312/06/2023 Alhaji Colin [facility] 13:33:01 Problem Notes None recorded. Procedures Surgical History Date Name Laterality Status Provider Name and Address Organization Details Recorded Time 02/09/20 25 Date of Last Pap Smear completed Monet Mendoza [facility] 03/06/2025 10:57:03 12/03/19 24 Caesarean Section completed Savanah Alvarez [facility] 12/09/2023 15:23:55 02/20/20 21 procedure on lower leg completed [facility] 05/06/2023 12:04:51 02/20/20 21 extracorporeal shockwave lithotripsy of calculus of kidney completed [facility] 05/06/2023 12:05:14 03/22/19 20 extraction of wisdom tooth completed [facility] 05/27/2023 12:21:35 03/22/19 18 Tonsillectomy completed [facility] 05/06/2023 12:04:19 Imaging Results None recorded. Procedure Notes None recorded. Medical Equipment None Reported. Allergies Allergen ID Allergen Name Allergen Category Reaction Reaction Severity Criticality Documentation Date Start Date Code Code System Note Provider Name and Address Organization Details Recorded Time 72909 grass pollen environme nt,medica tion Not available Not available Not available 07/22/2020 Janina Carlos [facility] 11:29:22 87832 cat's claw preparati on medicatio n facial swelling moderate Not available 07/22/2020 32247 3 RxNorm Janina Carlos [facility] 11:29:22 45101 Substance with sulfonami de structure and antibacte rial mechanism of action (substanc e) medicatio n facial swelling severe Not available 07/22/2020 43120 8003 SNOMED Janina Carlos null, [facility] 1 11:29:22 11643 Canis lupus familiari s extract environme nt facial swelling moderate Not available 07/22/2020 89505 4 RxNorm Janina Carols [facility] 11:29:22 23594 coconut allergeni c extract food,medi cation abdominal pain moderate Not available 07/22/2020 89128 1 RxNorm Janina Carlos [facility], [facility] 11:29:22 71349 Reglan medicatio n Not available Not available Not available 05/06/2023 9230 RxNorm Yaquelin Ji [facility] 4 12:00:31 57107 gadobenat e dimeglumi ne medicatio n vomiting Not available high 02/07/20252020 62723 RxNorm Not Available alia - External Data Service - prod 5 03:20:17 17468 Product containin g penicilli n (product) medicatio n Not available Not available Not available 02/07/20252024 16618 8001 SNOMED unrec ogniz ed react ion (text : Unkno wn, code: [id number]) (from exter nal [facility] e) Not Available alia - External Data Service - prod 5 03:20:17 60241 metoclopr amide Not available anxiety itching Not [...] Updated DateTime 01/25/2025 160.02 cm 39.3 kg/m2 509864.51 g 108/74 mm[Hg] [facility] 01/25/2025 12:15:36 Date Recorded Body height Body mass index (BMI) Body weight Systolic And Diastolic Provider Name and Address Organization Details Last Updated DateTime 02/08/2025 160.02 cm 39.1 kg/m2 826817.91 g 116/72 mm[Hg] [facility] 02/08/2025 09:15:39 Date Recorded Body height Body mass index (BMI) Body weight Systolic And Diastolic Provider Name and Address Organization Details Last Updated DateTime 02/12/2025 160.02 cm 39.5 kg/m2 951444.1 g 132/81 mm[Hg] [facility] 02/12/2025 17:08:27 Date Recorded Body height Body mass index (BMI) Body weight Systolic And Diastolic Provider Name and Address Organization Details Last Updated DateTime 03/06/2025 160.02 cm 40 kg/m2 333540.44 g 124/82 mm[Hg] [facility] 03/06/2025 10:56:52 Social History Question Answer Notes LastModified by Organizat ion Details LastModified Time Tobacco Smoking Status Never Smoker Yaquelin harrell, [facility] 05/06/2023 12:03:54 Do You Have An Advance Directive? No Information n ot available 07/22/2020 If You Are , What Was Your Level Of Alcohol Consumption Prior To ? Occasional [email or web address] Information not available 05/06/2023 How Many Years Have You Consumed Alcohol? 5 [email or web address] Information not available 05/06/2023 Are You Blind [...] Or The Highest Degree You Have Received? [id number] Information not available 07/22/2020 Are There Any [...] 07/22/2020 Do You Use Sunscreen Routinely? No [email or web address] Information not available 02/08/2025 Have You Used IV Drugs? No Information not available 07/22/2020 Do You Have Difficulty Walking Or Climbing Stairs? No [email or web address] Information not available 05/06/2023 Sex: Unknown Functional Status Question Answer Note LastModified by Organizat ion Details LastModified Time Do you use any illicit or recreational drugs? No Information not available 07/22/2020 What is your level of alcohol consumption? None [email or web address] Information not available 05/06/2023 Are you able to walk independently without assistance or assistive devices? [email or web address] Information not available 07/22/2020 Are you able to care for yourself independently? 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 No [email or web address] Information not available 05/06/2023 What is your exercise level? Occasional Information not available 07/22/2020 Mental Status Question Answer Note LastModified by Organization D etails LastModified Time Do you feel stressed (tense, restless, nervous, or anxious, or unable to sleep at night)? [id number] [email or web address] Information not available 08/22/2020 Family History Relationship Description Onset Age of this Age Resolved Age Notes LastModified by Organization Details LastModified Time Maternal Aunt Malignant neoplasm of breast Not available 2024 12:24:48 Paternal Grandfather Hypercholest erolemia Not available 2020 11:29:26 Paternal Grandfather Heart disease Not available 2020 11:29:26 Maternal Grandmother Disorder of lung Not available 2020 11:29:26 Maternal Grandmother Malignant neoplasm of lung Not available 2020 11:29:26 Maternal Grandmother Hypertensive disorder Not available 2020 11:29:26 Maternal Grandmother Diabetes mellitus Not available 2020 11:29:26 Maternal Grandmother Malignant neoplasm of breast [email or web address] Not available 2024 12:24:48 Maternal Grandmother Cerebrovascu lar accident Not available 05/2020 11:29:26 Mother Depressive disorder Not available 2020 11:29:26 Maternal Grandfather Hypertensive disorder Not available 2020 11:29:26 Medical History Condition Response Allergies (Food, seasonal, environmental ) Y Other N Breast Cancer N Drug/Latex Allergies/Reactions Y Blood Transfusion N Dermatologic Disorders N Lung Disease N Defects or Inherited Disease N Breast Problem Y Gestational Diabetes N Hematologic disorders N Anesthesia Complications N History of STI Y Deep Vein Thrombosis N Polycystic ovary syndrome N Anxiety Disorder Y Autoimmune disease N Arthritis N Infertility N Polyps N Acid Reflux (GERD) N History of abnormal pap N Cancer N Stroke N Varicosities N Neurologic/Epilepsy Y Endometriosis N High Cholesterol N Headaches Y Fibromyalgia N Kidney Disease N Heart Problems N Kidney or Bladder Problems Y Thyroid Problems Y GI Problems N Eating Disorder [...] ICD10 Code Diagnosis IMO Codes Diagnosis Note [id number] Olena Calvo [facility] [address] [address] 07/22/2020 11:06:52 07/22/2020 22:33:37 Gynecologic examination 53314103 Z01.419 Take Calcium with Vitamin D 1200mg daily if not receiving in daily diet. It is strongly advised to have an annual flu shot and up can obtain at most pharmacies . If you have not had a TDap shot in the last 10 years you should obtain one as well. Discussed with patient & provided with shanon figueroa regarding Gardisil vaccine to prevent the 4 strains for HPV that cause cervical cancer if under age 26. Encourage safe sexual practices, to use condoms and limit partners if not already in a monogamous relationsh ip. Do monthly self breast exams. Have mammogram yearly or every other year depending on family history. BRCA testing is now available for patients with strong genetic history of female cancer. If interested contact the office. Engage in daily exercise of low impact aerobic exercise 45-60 minutes 4-5 times weekly. Avoid tobacco and illicit drugs as well as using moderation with alcohol intake less than 1-2 8 oz beverages daily. This lifestyle behavior pattern will lead to less health conditions and longer life span. If BMI greater than 25 weight watchers or dietary consult advised. Patient received above instructio ns, and questions have been answered. If you have any questions please call or respond to this email. Patient was made aware of the patient portal and may obtain a paper copy of today's plan if desired. 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 She reports she is stable at this time and has been for at least the past 5yrs. Secondary amenorrhea 156 305969 N91.1 Hx of oligomenor jaden/secon remy amenorrhea . Periods can occur q2-6mos. Her LMP 02/2020 She has been in the past when on BC patch-preg crispin ended in 2014. She takes monthly UPT's to ensure no - all neg. She reports having had multiple work ups including imaging, labs, EMBx all of which she reports were wnl. Will try to get records. Will await TVUS and labs then consider provera challenge to initiate a cycle unless otherwise indicated. Serum thyr oid stimulating hormone level outside reference range [id number] R79.89 Hx of labile TSH showing hypothyroi dism. She has never been tested for Hashimotos We agreed to pursue this testing today. [id number] Patricio Marrero MD [facility] [address] [place] [id number] 08/06/2020 17:26:29 08/06/2020 20:50:32 Amenorrhea 99187959 N91.2 [id number] Olena Calvo [facility] [address] [address] 08/22/2020 13:04:34 08/22/2020 15:34:38 Secondary amenorrhea 285709604 N91.1 Test/Imagi ng results reviewed. TVUS wnl. Labs reviewed & therapies started if indicated. Plan of care: Hx of oligomenor jaden/secon remy amenorrhea . Periods can occur q2-6mos. Her LMP 08/04/2020, moderate flow x 7 days with minimal dysmenorrh ea. Initially she was interested in restarting BC patch; however, she has a dx of migraines with aura which is a contraindi cation to use of estrogen containing products. She agreed to trial SLYND & will RTO x 3mos We also discussed nexplanon as another options. Not ready for IUD's. 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 Pt would like to start POP. She is aware of the risks and benefits. She has contraindi cations to use of OCP or other estrogen containing hormonal therapy. Pt will start her pills on the first wednesday following the start of her period. She is aware it is not effective for control the first month. She is also aware of the importance of taking at the same time every day. Encouraged use of condoms as the pill does not protect against STD's. Will return in 3 months for med check. Consent was read and signed. Pt verbalized understand ing. RTO x 3mos med check Time spent in visit is a total of 28 mins with at least 50% of visit consisting of counseling and review of plan of care. Additional precaution mabel measures were taken to minimize potential exposure to the Covid-19 virus during this patient s visit, including available hand plaque maker upon arrive, temperatur e check and being asked a series of screening questions. All staff wore face coverings during this encounter, as well as provided additional cleaning and sanitizing of all surfaces, including countertop s, pens, chairs, door handles, light switches, etc, prior to and following the patient s visit. [id number] [facility]len[facility] Calvo , [facility] [address],[facility] [place] [address] 12/03/2020 11:58:44 12/03/2020 13:37:24 Oligomenorrhea 36402270 N91.5 Patient is here today for a medicaton check of control. She voices goals of therapy have been met with use of this therapy. She denies neg side effects. She is eating, drinking, sleeping well; moods are stable & periods are well regulated. Wishes to continue this method of BC. Appropriat e to continue this medication . Time spent in visit is a total of 15 mins with at least 50% of visit consisting of counseling and review of plan of care.Addit ional precaution mabel measures were taken to minimize potential exposure to the Covid-19 virus during this patient s visit, including available hand plaque maker upon arrive, temperatur e check and being asked a series of screening questions. All staff wore face coverings during this encounter, as well as provided additional cleaning and sanitizing of all surfaces, including countertop s, pens, chairs, door handles, light switches, etc, prior to and following the patient s visit. [id number] Patricio Marrero MD [facility] [address],[facility] [place] [address] 05/06/2023 11:26:41 05/06/2023 12:44:38 Amenorrhea 71371592 N91.2 28-year-ol d female presents for amenorrhea . She has a positive test and ultrasound reveals a 9 week gestation. We discussed care. We discussed genetic screening and 12 week ultrasound . Discussed recommenda tions for diet, exercise, over-the-c ounter medication s. She has a thyroid concern. She has not on medication but has taken thyroid medication in the past. We spent over 20 minutes face-to-fa ce. More than 50% was counseling . She will follow-up in 3 weeks. [id number] Patricio Marrero MD [facility] [address],[facility] [place] [address] 05/06/2023 11:28:18 05/06/2023 11:46:38 screening [id number] Z36.87 Z3A.09 [id number] Patricio Marrero MD [facility] [address],[place] [address] 05/27/2023 11:17:02 05/27/2023 11:51:19 screening [id number] Z36.82 Z3A.12 [id number] MD Raysa Szymanski [address],[place] [address] 05/27/2023 11:18:32 05/27/2023 20:04:11 [id number] Patricio Marrero MD [facility] [address],[place] [address] 06/28/2023 15:53:54 06/28/2023 16:43:13 Gestation period, 16 weeks [id number] Z3A.16 screening 2437 51688 Z36.89 [id number] Patricio Marrero MD [facility] [address],[place] [address] 07/20/2023 10:57:49 07/20/2023 12:57:55 screening for malformation 157744991 Z36.3 Z3A.19 [id number] Patricio Marrero MD [facility] [address],[place] [address] 07/26/2023 11:01:06 07/26/2023 12:03:34 Routine care [id number] Z34.90 [id number] MD Raysa Szymanski [address],[place] [address] 08/12/2023 09:35:42 08/12/2023 10:12:20 screening 738644111 Z36.2 O43.192 Z3A.23 [id number] MD Raysa Szymanski [address],[place] [address] 08/23/2023 10:18:55 08/23/2023 11:38:32 Urinary tract infectious disease 74131133 N39.0 Routine an tenatal care 995317086 Z34.90 [id number] MD Raysa Szymanski [address],[place] [address] 09/15/2023 17:16:24 09/16/2023 09:29:56 Abdominal pain in 174721851 O43.102 O40.2XX0 Z3A.27 [id number] MD Raysa Szymanski [address],[place] [address] 09/15/2023 17:20:08 09/16/2023 09:33:27 Routine care 353365929 Z34.90 [id number] MD Raysa Szymanski [address],[place] [address] 09/29/2023 16:20:34 09/29/2023 17:07:01 Polyhydramnios 78375950 O40.3XX0 Z3A.29 [id number] MD Raysa Szymanski [address],[place] [address] 09/30/2023 17:10:04 09/30/2023 17:55:23 Routine care 520070918 Z34.90 [id number] MD Raysa Szymanski [address],[place] [address] 10/06/2023 17:16:04 10/07/2023 06:59:26 Nausea and vomiting 59448081 R11.2 Routine an tenatal care [id number] Z34.90 [id number] Patricio Marrero MD [facility] [address],[place] [address] 10/15/2023 09:41:21 10/15/2023 11:39:49 Placental condition affecting management of mother 612059324 O43.93 Z3A.32 [id number] MD Raysa Szymanski [address],[place] [address] 10/15/2023 09:42:18 10/16/2023 09:58:42 Routine care [id number] Z34.90 MD Raysa Szymanski [address],[place] [address] 10/28/2023 15:51:29 10/28/2023 16:23:02 Medical examination for suspected condition 010727961 Z03.71 Z3A.34 [id number] Patricio Marrero MD [facility] [address],[place] [address] 11/01/2023 10:56:50 11/01/2023 14:51:42 Routine care 947963679 Z34.90 [id number] MD Raysa Szymanski [address],[place] [address] 11/12/2023 10:28:34 11/12/2023 11:38:25 Routine care 367728321 Z34.90 [id number] MD Raysa Szymanski [address],[place] [address] 11/16/2023 11:27:13 11/16/2023 12:11:56 Placental condition affecting management of mother 588911830 O43.103 Z3A.36 [id number] Patricio Marrero MD [facility] [address],[place] [address] 11/16/2023 11:31:21 11/16/2023 12:23:56 Routine care 669249047 Z34.90 [id number] Patricio Marrero MD [facility] [address],[place] [address] 11/25/2023 10:22:07 11/25/2023 11:05:20 Polyhydramnios 34189779 O40.3XX0 Z3A.38 [id number] [facility] [address],[place] [address] 11/26/2023 11:21:39 11/26/2023 12:14:47 Routine care 589369682 Z34.93 Herpes simplex 65373800 B00.9 [id number] Patricio Marrero MD [facility] [address],[place] [address] 12/09/2023 15:08:16 12/09/2023 16:24:24 Postoperative care 700970922 Z48.89 This patient is a 28-year-ol d female who presents for postop follow-up. She is 1 week postop from a delivery. Her incision is clean dry and intact. She has no complaints . Her bleeding is minimal. She denies any nausea, vomiting, fever, chills. She denies any chest pain or shortness of breath. Her baby is doing well. Her mood is good. [id number] Patricio Marrero MD [facility] [address],[place] [address] 12/21/2023 12:25:49 12/21/2023 13:16:22 Imaging result abnormal [id number] R93.89 [id number] Patricio Marrero MD [facility] [address],[place] [address] 12/30/2023 15:49:39 12/31/2023 09:20:45 Postoperative pain 990793095 G89.18 28-year-ol d female presents for follow-up on ultrasound . Her ultrasound was essentiall y normal. There is some heterogene ous fluid in the endometriu m. CT scan was suggestive of retained products. She is recovering normally from her . She denies any nausea, vomiting, fever, chills. She denies any chest pain or shortness of breath. She will follow-up as needed. She will follow up for routine visit. [id number] Patricio Marrero MD [facility] [address],[place] [address] 01/25/2025 11:55:56 01/25/2025 16:53:19 Abnormal uterine bleeding [id number] 9100 N93.9 [id number] this patient is a 30-year-ol d female [...] the patient's care regarding abnormal uterine bleeding. [id number] Patricio Marrero MD [facility] [address] [address] 02/07/2025 12:23:07 02/07/2025 13:15:01 Abnormal uterine bleeding 0702517626 9100 N93.9 [id number] this patient is a 30-year-ol d female [...] the patient's care regarding abnormal uterine bleeding. [id number] FRANCISCA ALVARADO NP [facility] [address] [address] 02/08/2025 09:00:33 02/08/2025 09:35:43 Well woman health examination 992266957 Z01.419 [id number] Annual gynecologi rajendra exam performed. Patient will [...] w/ HPV collected STI testing - declined [id number] Patricio Marrero MD [facility] [address],[place] [address] 02/12/2025 16:15:46 02/14/2025 16:18:40 Anovulation 28382414 N97.0 [id number] Abnormal u terine bleeding 2405651322 9100 N93.9 [id number] this patient is a 30-year-ol d female [...] ne etc. partner to get semen analysis. [id number] FRANCISCA ALVARADO NP [facility] [address] [address] 03/06/2025 10:45:22 03/06/2025 11:09:20 Vaginal discharge 254882222 N89.8 [id number] Reviewed the various causes of vaginal discharge [...] nitis panel sent. Venereal d isease screening 878345623 Z11.3 [id number] Pt requested STI testing.Di scussed the various types of STDs, related symptoms and the potential consequenc es (including effects on fertility) of STD infections . Reviewed ways to limit exposure and prevention techniques . Health Concerns Section Related Observation LastModified by Organization Detai ls LastModified Time None Recorded Concern Status LastModified by Organization Details LastModified Time None Recorded Advance Directives Directive N: Payers Insurance Date Sequence Insurance Name Policy Number Policy [place] Covered Member ID [place] Member ID Guarantor Name 03/05/2025 1 [place] [id number] 04/30/2023 1 [facility] [id number] [facility] [id number] 03/05/2025 2 [place] [facility] [id number] 03/04/2025 1 [place] [id number] Vineet Brown Zachary [id number] Notes Date Note Type Note Provider Name and Address Organization Details Recorded Time 5 text/html this patient is a 30-year-old female [...] patient's care regarding abnormal uterine bleeding. Patricio Marrero MD [address], [place], [address], [facility] 01/25/2025 16:49:43 5 text/html Annual GYNReported by PatientHistoryFor history, [...] denies concerns today.Patient has f/u with Dr. Marrero next week for infertility work-up as she has been trying to conceive for one year; had labs and pelvic ultrasound completed. FRANCISCA ALVARADO NP [address], [place], [address], [facility] 02/08/2025 09:33:46 5 text/html this patient is a 30-year-old female [...] etc. partner to get semen analysis. Patricio Marrero MD [address], [place], [address], [facility] 02/14/2025 15:17:23 5 text/html 30 y/o female presents with c/o vaginal discharge, itching, and odor x several weeks.Patient tried OTC monistat with no relief. FRANCISCA ALVARADO, CORTE[facility] [address], [place], [address], , [facility] 03/06/2025 11:26:17 OBGyn Episode Ob Episode Information Episode Created Date Number of Fetuses Patient Bloodtype Patient rh Status Prepregnancy Weight lbs Domestic Partner Domestic Partner Phone Father Name Training And Documentation Specialist Status 07/23/19 21 1 DELETED Mendez Calculation Initial Mendez Date Initial Exam Date Initial Exam Provider Initial Ultrasound Date Last Menstrual Period Date Ultra Sound Weeks Gestation 0 Eighteen To Twenty Week Mendez Update Ultra Sound Date Fundal Height At Umbil Quickening Date Ultra Sound Latest Weeks Gestation Final Mendez Confirmed By Final Mendez Confirmed Date Final Mendez Date Ultra Sound Latest Days Gestation 0 0 Menstrual History Last Menstrual Date Menses Monthly On Bcp Conception Prior Menses Frequency Hcg Plus Date Menarche Onset Age Delivery Information Delivery Date Delivery Type Labor Anesthesia Weeks Gestation Incision Type Labor Labor Length Hrs Delivered By Post Complications Tubal Sterilization Discharge Date Comments 2 40 Discharge Information Feeding Method Contraceptive Method Maternal HG B and HCT Levels Ob Episode Information Episode Created Date Number of Fetuses Patient Bloodtype Patient rh Status Prepregnancy Weight lbs Domestic Partner Domestic Partner Phone Father Name Training And Documentation Specialist Status 08/07/19 21 1 DELETED Mendez Calculation Initial Mendez Date Initial Exam Date Initial Exam Provider Initial Ultrasound Date Last Menstrual Period Date Ultra Sound Weeks Gestation 0 Eighteen To Twenty Week Mendez Update Ultra Sound Date Fundal Height At Umbil Quickening Date Ultra Sound Latest Weeks Gestation Final Mendez Confirmed By Final Mendez Confirmed Date Final Mendez Date Ultra Sound Latest Days Gestation 0 0 Menstrual History Last Menstrual Date Menses Monthly On Bcp Conception Prior Menses Frequency Hcg Plus Date Menarche Onset Age Delivery Information Delivery Date Delivery Type Labor Anesthesia Weeks Gestation Incision Type Labor Labor Length Hrs Delivered By Post Complications Tubal Sterilization Discharge Date Comments 5 40 Discharge Information Feeding Method Contraceptive Method Maternal HG B and HCT Levels Ob Episode Information Episode Created Date Number of Fetuses Patient Bloodtype Patient rh Status Prepregnancy Weight lbs Domestic Partner Domestic Partner Phone Father Name Training And Documentation Specialist Status 05/06/19 24 1 CLOSED Fetus Data First Name Last Name Admitted to NICU Weight (g) Sex Living Outcome Pediatric Complications Fetus ID Race Codes Race Delivery Type , Spontane ous [id number] Mendez Calculation Initial Mendez Date Initial Exam Date Initial Exam Provider Initial Ultrasound Date Last Menstrual Period Date Ultra Sound Weeks Gestation 0 Eighteen To Twenty Week Mendez Update Ultra Sound Date Fundal Height At Umbil Quickening Date Ultra Sound Latest Weeks Gestation Final Mendez Confirmed By Final Mendez Confirmed Date Final Mendez Date Ultra Sound Latest Days Gestation 0 0 Menstrual History Last Menstrual Date Menses Monthly On Bcp Conception Prior Menses Frequency Hcg Plus Date Menarche Onset Age Delivery Information Delivery Date Delivery Type Labor Anesthesia Weeks Gestation Incision Type Labor Labor Length Hrs Delivered By Post Complications Tubal Sterilization Discharge Date Comments 6 Discharge Information Feeding Method Contraceptive Method Maternal HG B and HCT Levels Ob Episode Information Episode Created Date Number of Fetuses Patient Bloodtype Patient rh Status Prepregnancy Weight lbs Domestic Partner Domestic Partner Phone Father Name Training And Documentation Specialist Status 05/06/19 24 1 CLOSED Fetus Data First Name Last Name Admitted to NICU Weight (g) Sex Living Outcome Pediatric Complications Fetus ID Race Codes Race Delivery Type , [place]ontane ous [id number] Mendez Calculation Initial Mendez Date Initial Exam Date Initial Exam Provider Initial Ultrasound Date Last Menstrual Period Date Ultra Sound Weeks Gestation 0 Eighteen To Twenty Week Mendez Update Ultra Sound Date Fundal Height At Umbil Quickening Date Ultra Sound Latest Weeks Gestation Final Mendez Confirmed By Final Mendez Confirmed Date Final Mendez Date Ultra Sound Latest Days Gestation 0 0 Menstrual History Last Menstrual Date Menses Monthly On Bcp Conception Prior Menses Frequency Hcg Plus Date Menarche Onset Age Delivery Information Delivery Date Delivery Type Labor Anesthesia Weeks Gestation Incision Type Labor Labor Length Hrs Delivered By Post Complications Tubal Sterilization Discharge Date Comments 9 Discharge Information Feeding Method Contraceptive Method Maternal HG B and HCT Levels Ob Episode Information Episode Created Date Number of Fetuses Patient Bloodtype Patient rh Status Prepregnancy Weight lbs Domestic Partner Domestic Partner Phone Father Name Training And Documentation Specialist Status 05/27/19 24 1 CLOSED Fetus Data First Name Last Name Admitted to NICU Weight (g) Sex Living Outcome Pediatric Complications Fetus ID Race Codes Race Delivery Type , Spontane ous [id number] Mendez Calculation Initial Mendez Date Initial Exam Date Initial Exam Provider Initial Ultrasound Date Last Menstrual Period Date Ultra Sound Weeks Gestation 0 Eighteen To Twenty Week Mendez Update Ultra Sound Date Fundal Height At Umbil Quickening Date Ultra Sound Latest Weeks Gestation Final Mendez Confirmed By Final Mendez Confirmed Date Final Mendez Date Ultra Sound Latest Days Gestation 0 0 Menstrual History Last Menstrual Date Menses Monthly On Bcp Conception Prior Menses Frequency Hcg Plus Date Menarche Onset Age Delivery Information Delivery Date Delivery Type Labor Anesthesia Weeks Gestation Incision Type Labor Labor Length Hrs Delivered By Post Complications Tubal Sterilization Discharge Date Comments 7 Discharge Information Feeding Method Contraceptive Method Maternal HG B and HCT Levels Ob Episode Information Episode Created Date Number of Fetuses Patient Bloodtype Patient rh Status Prepregnancy Weight lbs Domestic Partner Domestic Partner Phone Father Name Training And Documentation Specialist Status 05/27/19 24 1 216 Vineet Halm CLOSED Fetus Data First Name Last Name Admitted to NICU Weight (g) Sex Living Outcome Pediatric Complications Fetus ID Race Codes Race Delivery Type 2929.93 [id number] F true Full Term non-reassuring status [id number] Primary Problems Problem Notes Problem Name Start Date End Date Resolution Snomed Code Not e Polyhydramnios SELFRESOLVED [id number] ch esteban at 34 weeks Along with growth - 10/15/23 u/s was WNL Kidney stone 78771715 7mm lef t side Herpes simplex 48503397 pt sa ys only oral-sp Disorder of placenta 483499957 bilobed - serial growth. Last done 10/15/23 Mendez Calculation Initial Mendez Date Initial Exam Date Initial Exam Provider Initial Ultrasound Date Last Menstrual Period Date Ultra Sound Weeks Gestation 12/09/2023 05/06/2023 05/06/2023 9 Eighteen To Twenty Week Mendez Update Ultra Sound Date Fundal Height At Umbil Quickening Date Ultra Sound Latest Weeks Gestation Final Mendez Confirmed By Final Mendez Confirmed Date Final Mendez Date Ultra Sound Latest Days Gestation 05/27/19 24 12 [email or web address] 06/28/2023 12/09/19 24 4 Pre- Flowsheet Flowsheet Date 05/27/2023 Pfeiffer Score Blood Edema Fundus Height Fundus Units Glucose Ketones Leukocytes Nitrite Labor Signs Protein Cervic Dilation Cervic Effacement Cervic Station Type Weight in lbs Pre/Post Dialysis Refused BP Diastolic BP Location Tested BP Systolic BP Type Fetus Heart Rate Present Fetus Movement Comments Flowsheet Date 06/28/2023 Pfeiffer Score Blood Edema Fundus Height Fundus Units Glucose Ketones Leukocytes Nitrite Labor Signs Protein Cervic Dilation Cervic Effacement Cervic Station Type Weight in lbs Pre/Post Dialysis Refused Weight 208.012751275778 BP Diastolic BP Location Tested BP Systolic BP Type 82 120 Fetus Heart Rate Present A 153 Fetus Movement Comments patient is a 28-year-old gra micheal 4 para 0030 at 16 weeks' gestation who presented for initial care. She had a normal 12 week ultrasound. She is vaccinated for COVID. We discussed vaccine recommendations. She was given precautions. We discussed care in detail. She will begin routine care. Flowsheet Date 06/28/2023 Pfeiffer Score Blood Edema Fundus Height Fundus Units Glucose Ketones Leukocytes Nitrite Labor Signs Protein Cervic Dilation Cervic Effacement Cervic Station neg none none trace Type Weight in lbs Pre/Post Dialysis Refused Weight 208.645333411791 BP Diastolic BP Location Tested BP Systolic BP Type 82 120 Fetus Heart Rate Present Fetus Movement A Yes Comments Patient is having some cramp ing, back pain, pelvic pain, and nausea. Flowsheet Date 07/20/2023 Pfeiffer Score Blood Edema Fundus Height Fundus Units Glucose Ketones Leukocytes Nitrite Labor Signs Protein Cervic Dilation Cervic Effacement Cervic Station Type Weight in lbs Pre/Post Dialysis Refused BP Diastolic BP Location Tested BP Systolic BP Type Fetus Heart Rate Present Fetus Movement Comments Flowsheet Date 07/26/2023 Pfeiffer Score Blood Edema Fundus Height Fundus Units Glucose Ketones Leukocytes Nitrite Labor Signs Protein Cervic Dilation Cervic Effacement Cervic Station neg none none trace Type Weight in lbs Pre/Post Dialysis Refused Weight 215.575403430028 BP Diastolic BP Location Tested BP Systolic BP Type 80 L arm 124 sitting Fetus Heart Rate Present A 144 Fetus Movement A Yes Comments No complaints , no problems, routine care, anatomy was last week, repeat anatomy in 3 weeks, serial growth for placental irregularity. Flowsheet Date 08/12/2023 Pfeiffer Score Blood Edema Fundus Height Fundus Units Glucose Ketones Leukocytes Nitrite Labor Signs Protein Cervic Dilation Cervic Effacement Cervic Station Type Weight in lbs Pre/Post Dialysis Refused BP Diastolic BP Location Tested BP Systolic BP Type Fetus Heart Rate Present Fetus Movement Comments Flowsheet Date 08/23/2023 Pfeiffer Score Blood Edema Fundus Height Fundus Units Glucose Ketones Leukocytes Nitrite Labor Signs Protein Cervic Dilation Cervic Effacement Cervic Station neg none 24 none trace Type Weight in lbs Pre/Post Dialysis Refused Weight 218.258767028512 BP Diastolic BP Location Tested BP Systolic BP Type 80 L arm 119 sitting Fetus Heart Rate Present A 145 Fetus Movement A Yes Comments Patient c/o of slight crampi ng, Urinary tract infection, treated, to schedule growth ultrasound for 2 weeks, follow-up in 4 weeks, good movement appreciated during the Doppler heart tone exam Flowsheet Date 09/15/2023 Pfeiffer Score Blood Edema Fundus Height Fundus Units Glucose Ketones Leukocytes Nitrite Labor Signs Protein Cervic Dilation Cervic Effacement Cervic Station Type Weight in lbs Pre/Post Dialysis Refused BP Diastolic BP Location Tested BP Systolic BP Type Fetus Heart Rate Present Fetus Movement Comments Flowsheet Date 09/15/2023 Pfeiffer Score Blood Edema Fundus Height Fundus Units Glucose Ketones Leukocytes Nitrite Labor Signs Protein Cervic Dilation Cervic Effacement Cervic Station neg none Type Weight in lbs Pre/Post Dialysis Refused Weight 220.715667988804 BP Diastolic BP Location Tested BP Systolic BP Type 79 L arm 114 sitting Fetus Heart Rate Present Fetus Movement A Yes Comments borderline MY, to repeat 2 weeks, no complaints, no problems, routine Flowsheet Date 09/29/2023 Pfeiffer Score Blood Edema Fundus Height Fundus Units Glucose Ketones Leukocytes Nitrite Labor Signs Protein Cervic Dilation Cervic Effacement Cervic Station Type Weight in lbs Pre/Post Dialysis Refused BP Diastolic BP Location Tested BP Systolic BP Type Fetus Heart Rate Present Fetus Movement Comments Flowsheet Date 09/30/2023 Pfeiffer Score Blood Edema Fundus Height Fundus Units Glucose Ketones Leukocytes Nitrite Labor Signs Protein Cervic Dilation Cervic Effacement Cervic Station 30 Type Weight in lbs Pre/Post Dialysis Refused Weight 222.08792501296 BP Diastolic BP Location Tested BP Systolic BP Type 76 L arm 113 sitting Fetus Heart Rate Present A 145 Fetus Movement Comments discussed results of MY yes terday. It was good. We are going to repeat again in 4 weeks. She needs growth ultrasound at that time. Flowsheet Date 10/06/2023 Pfeiffer Score Blood Edema Fundus Height Fundus Units Glucose Ketones Leukocytes Nitrite Labor Signs Protein Cervic Dilation Cervic Effacement Cervic Station Type Weight in lbs Pre/Post Dialysis Refused Weight 226.158623397558 BP Diastolic BP Location Tested BP Systolic BP Type 84 L arm 133 sitting Fetus Heart Rate Present A 138 Fetus Movement Comments left-sided kidney stone diag nosed yesterday, continues to have pain, discussed pain management possibilities. , currently looks comfortable. Has a long history of renal calculi. Growth ultrasound scheduled today Flowsheet Date 10/15/2023 Pfeiffer Score Blood Edema Fundus Height Fundus Units Glucose Ketones Leukocytes Nitrite Labor Signs Protein Cervic Dilation Cervic Effacement Cervic Station Type Weight in lbs Pre/Post Dialysis Refused BP Diastolic BP Location Tested BP Systolic BP Type Fetus Heart Rate Present Fetus Movement Comments Flowsheet Date 10/15/2023 Pfeiffer Score Blood Edema Fundus Height Fundus Units Glucose Ketones Leukocytes Nitrite Labor Signs Protein Cervic Dilation Cervic Effacement Cervic Station neg none none trace Type Weight in lbs Pre/Post Dialysis Refused 225.707718429816 BP Diastolic BP Location Tested BP Systolic BP Type 84 L arm 127 sitting Fetus Heart Rate Present A 144 Fetus Movement A Yes Comments pateint c/o of nausea and ab dominal cramping. along with headaches. feels dizzy when first wakes up., given instructions and precautions . Normal ultrasound today, normal fluid, normal growth Flowsheet Date 10/28/2023 Pfeiffer Score Blood Edema Fundus Height Fundus Units Glucose Ketones Leukocytes Nitrite Labor Signs Protein Cervic Dilation Cervic Effacement Cervic Station Type Weight in lbs Pre/Post Dialysis Refused BP Diastolic BP Location Tested BP Systolic BP Type Fetus Heart Rate Present Fetus Movement Comments Flowsheet Date 11/01/2023 Pfeiffer Score Blood Edema Fundus Height Fundus Units Glucose Ketones Leukocytes Nitrite Labor Signs Protein Cervic Dilation Cervic Effacement Cervic Station 34 cm Type Weight in lbs Pre/Post Dialysis Refused 236.241845898666 BP Diastolic BP Location Tested BP Systolic BP Type 84 L arm 129 sitting Fetus Heart Rate Present A 139 Fetus Movement A Yes Comments no complaints, no problems, routine care, no contractions, no vaginal bleeding, no loss of fluid, no cramping Flowsheet Date 11/12/2023 Pfeiffer Score Blood Edema Fundus Height Fundus Units Glucose Ketones Leukocytes Nitrite Labor Signs Protein Cervic Dilation Cervic Effacement Cervic Station Type Weight in lbs Pre/Post Dialysis Refused Weight [id number] BP Diastolic BP Location Tested BP Systolic BP Type 84 L arm 130 sitting Fetus Heart Rate Present A 143 Fetus Movement A Yes Comments no complaints, no problems, routine care, no contractions, no vaginal bleeding, no loss of fluid, no cramping Flowsheet Date 11/16/2023 Pfeiffer Score Blood Edema Fundus Height Fundus Units Glucose Ketones Leukocytes Nitrite Labor Signs Protein Cervic Dilation Cervic Effacement Cervic Station Type Weight in lbs Pre/Post Dialysis Refused BP Diastolic BP Location Tested BP Systolic BP Type Fetus Heart Rate Present Fetus Movement Comments Flowsheet Date 11/16/2023 Pfeiffer Score Blood Edema Fundus Height Fundus Units Glucose Ketones Leukocytes Nitrite Labor Signs Protein Cervic Dilation Cervic Effacement Cervic Station Type Weight in lbs Pre/Post Dialysis Refused [id number] BP Diastolic BP Location Tested BP Systolic BP Type 81 L arm 133 sitting Fetus Heart Rate Present A 132 Fetus Movement A Yes Comments no complaints, no problems, routine care, no contractions, no vaginal bleeding, no loss of fluid, no cramping Flowsheet Date 11/25/2023 Pfeiffer Score Blood Edema Fundus Height Fundus Units Glucose Ketones Leukocytes Nitrite Labor Signs Protein Cervic Dilation Cervic Effacement Cervic Station Type Weight in lbs Pre/Post Dialysis Refused BP Diastolic BP Location Tested BP Systolic BP Type Fetus Heart Rate Present Fetus Movement Comments Flowsheet Date 11/26/2023 Pfeiffer Score Blood Edema Fundus Height Fundus Units Glucose Ketones Leukocytes Nitrite Labor Signs Protein Cervic Dilation Cervic Effacement Cervic Station trace 39 cm Type Weight in lbs Pre/Post Dialysis Refused Weight [id number] BP Diastolic BP Location Tested BP Systolic BP Type 87 128 Fetus Heart Rate Present A 148 Present Fetus Movement A Yes Comments Patient states that is havin g contractions, swelling and nausea. discussed hsv, pt only has had oral outbreak, would like IOL next week on 12/[address] marrero, +FM education and precautions Menstrual History Last Menstrual Date Menses Monthly On Bcp Conception Prior Menses Frequency Hcg Plus Date Menarche Onset Age Genetic Screening And Infection History Question Response Note Mental Retardation/Autism false Patient's Age Will Be 35 Years Or Older At Estim ated Date of Delivery false Thalassemia ([place]er, Israeli, Mediterranean, Or Background): MCV < 80 false Neural Tube Defect (Meningomyelocele, Spina Bifi da, Or Anencephaly) false Congenital Heart Defect false Down Syndrome false Sami-Sachs (eg, Confucianist, Cajun, Bangladeshi-Centre) f alse Lexie Disease false Sickle Cell Disease Or Trait () false Hemophilia Or Other Blood Disorders false Muscular Dystrophy false Cystic Fibrosis false [place] false Intellectual Disability/Autism false If Yes, Was Person Tested For Fragile X? false Other Inherited Genetic Or Chromosomal Disorder false Maternal Metabolic Disorder (eg, Type 1 Diabetes , PKU) false Patient Or Baby's Father Had A Child With Defects Not Listed Above false Recurrent Loss, Or A Stillbirth false Medications (including Suppl ements, Vitamins, Herbs, OTC Drugs), Illicit/Recreational Drugs, Alcohol false If Yes, Agent(s) And Strength/Dosage false Any Other Genetic History false Live With Someone With TB Or Exposed To TB false Patient Or Partner Has History Of Genital Herpes false Rash Or Viral Illness Since Last Menstrual Perio d false History Of STD, Gonorrhea, Chlamydia, HPV, Syphi lis false Other Infection History false History of HIV false History of Hepatitis false Prior GBS-infected child false Hemoglobinopathy Or Carrier false Other Structural Defect false Recent Travel History Outside of Country false Delivery Information Delivery Date Delivery Type Labor Anesthesia Weeks Gestation Incision Type Labor Labor Length Hrs Delivered By Post Complications Tubal Sterilization Discharge Date Comments 4 Induce d Regional-Ep idural 39.1 Low Transvers e Patricio Spangler MD Disorder of placenta, Herpes simplex,K Brown clements yhydramni os Discharge Information Feeding Method Contraceptive Method Maternal HG B and HCT Levels
--- OUTSIDE RECORDS SUMMARY | 2025-03-11 08:06 | XMS_ITS | Clinical Summary ---
Author Organization [facility] Address [address] [place] [address] Phone Care Team Providers Care Casting Associate Name Role Phone Maryam Mane APRN, CENTER MEDICAL DIRECTOR Unavailable [phone] Megan Welsh APRN, CENTER MEDICAL DIRECTOR Primary Care Prov ider Allergies Active Allergy Reactions Criticality Noted Date Comments Gadobenate Vomiting High 11/12/2020 Penicillins Unknown 06/16/2024 Metoclopramide Itching,Anxiety High 05/13/2021 Sulfa Antibiotics Hives,Swelling High 10/06/2016 Medications lamoTRIgine (LaMICtal) 200 MG Tablet Take 200 mg by mouth daily. 5 Active metFORMIN (GLUCOPHAGE-XR) 500 MG TABLET SR 24 HR Take 1,000 mg by mouth daily. 5 Active loratadine (Claritin) 10 MG Capsule Take by mouth. Acti ve famotidine (Pepcid) 40 MG Tablet Take 40 mg by mouth daily. Active azelastine (ASTELIN) 0.1 % SolutionIndicat ions:Allergy, initial encounter 2 Sprays by Nasal route 2 times daily. Use in each nostril as directed 30 mL 3 5 Active albuterol 108 (90 Base) MCG/ACT Aerosol Solution take 2 Puffs by inhalation every 4 hours as needed for Wheezing. 36 g 1 10/23/202 5 Active Active Problems Problem Noted Date Diagnosed Date Right kidney stone 05/07/2021 Acute kidney injury 05/07/2021 Obstructive uropathy 05/07/2021 Nausea and vomiting 05/07/2021 Right ureteral stone 05/07/2021 Hydronephrosis of right kidney 05/07/2021 Trimalleolar fracture of ank le, closed, right, initial encounter 03/19/2021 Excessive daytime sleepiness 12/20/2020 Obesity due to excess calories 12/20/2020 Migraine without aura and wi thout status migrainosus, not intractable 04/21/2020 Major depressive disorder, r ecurrent episode, moderate with anxious distress 02/16/2018 Chronic tonsillitis 02/01/2018 Anxiety with depression 02/01/2018 Weight gain 02/01/2018 Acquired hypothyroidism 02/01/2018 Frequent headaches 02/01/2018 Encounters Date Type Department Care Team Description 01/10/2025 MyChart RX Renewal [facility] [address] [place] [address] Joanna Thao MD Medication Renewal Request 01/08/2025 Results Follow-Up [facility] [address] [place] [address] Megan Welsh APRN, CENTER MEDICAL DIRECTOR CMP (COMPREHENSIVE METABOLIC PANEL), LIPID PANEL, THYROXINE (T4) FREE, Additional followed-up results: 7 01/02/2025 10:00 AM CDT Lab [facility] [address] [address] [facility] Bipolar 1 disorder; Fatigue, unspecified type; BMI 39.0-39.9,adult; Acquired hypothyroidism; Vitamin D deficiency; Arthralgia, unspecified joint Discharge Disposition: Discharged to home or Selfcare 01/02/2025 Travel 01/02/2025 Telephone [facility] [address] [place] [address] Megan Welsh APRN, CENTER MEDICAL DIRECTOR 12/22/2024 11:30 AM CDT Office Visit [facility] - Family [facility] [address] [place] [address] Megan Welsh, JEANINE, CENTER MEDICAL DIRECTOR BMI 39.0-39.9,adult (Primary Dx); Bipolar 1 disorder; Arthralgia, unspecified joint; Allergy, initial encounter; Fatigue, unspecified type; Vitamin D deficiency; Acquired hypothyroidism Discharge Disposition: Discharged to home or Selfcare 12/22/2024 Travel from Last 3 Months Immunizations Immunization Administration Dates Next Due Covid-19 Vaccine, Vector-nr, Rs-ad26, Pf, 0.5 Ml (Qteros/Tangible Play) 06/27/2020 DTAP VACCINE 11/03/2002, 9,1997,06/08,1997 HEP B/HIB Combined Vaccine 1997 Hepatitis A Vaccine, Pediatric/adolescent, 2 Dose Schedule 10/05/2014,10/26/2011 Hepatitis B Vaccine 1997,1997,1996 Hepatitis B Vaccine, Pediatric/adolescent 1997,1997 Hib (PRP-OMP) Vaccine 10/25/1998, 998,1997,03/23 Hib Vaccine,unspecified Formulation 10/25/1998,0 1997,1997 Human Papillomavirus Vaccine (HPV), quadrivalent 10/05/2014,10/26/2011 Inactivated Polio Vaccine 11/03/2002,,1997,03/23 MMR Vaccine 11/03/2002,10/25/1998 Meningococcal MCV4O 10/05/2014,10/26/2011 Meningococcal Vaccine 10/05/2014,10/26/2011 OPV 1997 TDAP Vaccine 10/26/2011 Varicella Vaccine Live 10/26/2011,12/01/2001 Family History Medical History Relation Name Comments No Known Problems Father Schizophrenia Maternal Uncle (55) Depression Mother Hypertension Mother Relation Name Status Comments Brother (13) Alive Father Alive Maternal Uncle (55) Alive Mother Alive Sister (13) Alive Social History Tobacco Use Types Packs/Day Years Used Date Smoking Tobacco: Never Smokeless Tobacco: Never Tobacco Cessation:Counseling Given: No Alcohol Use Standard Drinks/Week Comments No 0 (1 standard drink = 0.6 oz pur e alcohol) None since March 2023 PHQ-2 Answer Date Recorded Total Score - Questions 1-9 17 09/2022 Social Connection and Isolation Panel Answer Date Recorded In a typical week, how many times do you talk on the phone with family, friends, or neighbors? More than three times a week 12/22/2024 How often do you get togethe r with friends or relatives? Once a week 12/22/2024 How often do you attend chur or presybeterian services? Never 12/22/2024 Do you belong to any clubs o r organizations such as gnosticist groups, unions, fraternal or athletic groups, or school groups? No 12/22/2024 How often do you attend meet ings of the clubs or organizations you belong to? Never 12/22/2024 Are you , , di vorced, , never , or living with a partner? Living with partner 12/22/2024 AUDIT-C Answer Date Recorded Q1: How often do you have a drink containing alcohol? Never 12/22/2024 Q2: How many drinks containi ng alcohol do you have on a typical day when you are drinking? Patient does not drink Q3: How often do you have si x or more drinks on one occasion? Never 12/22/2024 Overall Financial Resource Strain (CARDIA) Answe r Date Recorded How hard is it for you to pa y for the very basics like food, housing, medical care, and heating? Hard 12/22/2024 [facility] - Occupational Stress Questionnaire Answer Date Recorded Do you feel stress - tense, restless, nervous, or anxious, or unable to sleep at night because your mind is troubled all the time - these days? Very much 12/22/2024 Exercise Vital Sign Answer Date Recorde d On average, how many days pe r week do you engage in moderate to strenuous exercise (like a brisk walk)? 7 days 12/22/2024 On average, how many minutes do you engage in exercise at this level? 60 min 12/22/2024 Hunger Vital Sign Answer Date Recorded Within the past 12 months, y ou worried that your food would run out before you got the money to buy more. Sometimes true Within the past 12 months, t he food you bought just didn't last and you didn't have money to get more. Sometimes true 05/2024 PRAPARE - Transportation Answer Date Re corded In the past 12 months, has l ack of transportation kept you from medical appointments or from getting medications? No 05/2024 In the past 12 months, has l ack of transportation kept you from meetings, work, or from getting things needed for daily living? No 12/22/2024 Housing Stability Vital Sign Answer Alex e Recorded In the last 12 months, was t here a time when you were not able to pay the mortgage or rent on time? Yes 12/22/2024 In the past 12 months, how m any times have you moved where you were living? 0 12/22/2024 At any time in the past 12 m [facility], were you homeless or living in a retirement (including now)? No 12/22/2024 [facility] Utilities Answer Date Recorded In the past 12 months has th e electric, gas, oil, or water company threatened to shut off services in your home? No 12/22/2024 Sexually Active Control Partners Comments Yes None Male Comments No Sex and Gender Information Value Date Recorded Sex Assigned at Not on file Legal Sex Female 9:41 PM CDT Gender Identity Not on file Sexual Orientation Not on file Last Filed Vital Signs Vital Sign Reading Time Taken Comments Blood Pressure 110/72 12/22/2024 11:29 AM CDT Pulse 80 06/16/2024 2:30 AM CDT Temperature 36.5 C (97.7 F) 12/22/2024 11:29 AM CDT Respiratory Rate 18 06/16/2024 1:00 AM CDT Oxygen Saturation 98% 06/16/2024 2:30 AM CDT Inhaled Oxygen Concentration - - Weight 98.9 kg (218 lb) 12/22/2024 11:29 AM CDT Height 157.5 cm (5' 2) 12/22/2024 11:29 AM CDT Body Mass Index 39.87 12/22/2024 11:29 AM CDT Plan of Treatment Upcoming Encounters Date Type Department Care Team (Late st Contact Info) Description 03/23/2025 11:00 AM [employer] LEADER Office Visit [facility] - Neurology - [place] [address] [place] [address] Rossy Salas, WHARF TENDER, WATER POLLUTION SCIENTIST [address] [place] [address] 04/30/2025 1:30 PM [employer] LEADER Office Visit [facility] Medical [facility] - Family Medicine - [place] [address] [place] [address] Megan Welsh, WHARF TENDER, CENTER MEDICAL DIRECTOR [address] [phone] Health Maintenance Due Date Last Done Comments DTaP/Tdap/Td Immunization (7 - Td or Tdap) 10/25/2021 10/26/2011, 11/03/2002, 10/25/1998, Additional history exists Pap Smear 07/23/2023 07/22/2020, 04/04/2018 Influenza Immunization (#1) 2024 SARS-COV-2 Immunization ( season) 2024 02/18/2021, 06/27/2020 Respiratory Syncytial Virus (RSV) Immunization (Adult) (1 - 1-dose 75+ series) 01/02/2072 Hepatitis B Immunization Completed 998, 1997, 1997, Additional history exists Varicella Immunization Completed 10/26/2011, 2001 Human Papillomavirus (HPV) Immunization Completed 10/05/2014, 10/26/2011 Meningococcal Immunization (ACWY) Completed 10/05/2014, 10/05/2014, 10/26/2011, Additional history exists Hepatitis C Virus (HCV) Screening Completed 06/28/2023 Pneumococcal Immunization Combined Aged Out No longer eligible based on patient's age to complete this topic Rotavirus Immunization Aged Out No lo nger eligible based on patient's age to complete this topic Goals Goal Patient Goal Type Associated Problems Recent Progress Patient-Stated? Author Psychological Assessment Behavioral Health Yes Ralph Sears PSYD Note: Patient will participate fully in a psychological assessment of her symptoms and personality factors, to determine whether she meets the criteria for a bipolar/related disorder, personality disorder, or another condition. Medical Devices Implanted Type Area Senior Financial Reporting Analyst Device Identifier Shelf Expiration Date Model / Serial / Lot Plate [id number] Ti 5 Hole Lock Loprfl Variax Smartlock Bone Fibula Lateral - [id number] Implanted:Qty: 1 on 03/19/2021 by Izaiah Velasquez MD at [facility] IMPLANT Right: Ankle [place] Trauma / / Screw Bone T10 Full Thread 3.5mm/22mm - [id number] Implanted:Qty: 1 on 03/19/2021 by Izaiah Velasquez MD at [facility] IMPLANT Right: Ankle Ty Orthopedic [id number] / [id number] / [id number] Screw Locking T10 Full Thread 3.5mm/12mm - [id number] Implanted:Qty: 4 on 03/19/2021 by Izaiah Velasquez MD at [facility] IMPLANT Right: Ankle Ty Orthopedic [id number] / [id number] / [id number] Screw Locking T10 Full Thread 3.5mm/16mm - [id number] Implanted:Qty: 2 on 03/19/2021 by Izaiah Velasquez MD at [facility] IMPLANT Right: Ankle Ty Orthopedic [id number] / [id number] / [id number] Screw Locking T10 Full Thread 3.5mm/18mm - [id number] Implanted:Qty: 1 on 03/19/2021 by Izaiah Velasquez MD at [facility] IMPLANT Right: Ankle [place] Orthopedic [id number] / [id number] / [id number] Screw Bone T10 Full Thread 3.5mm/12mm - [id number] Implanted:Qty: 1 on 03/19/2021 by Izaiah Velasquez MD at [facility] IMPLANT Right: Ankle [place] Orthopedic [id number] / [id number] / [id number] Screw Bone T10 Full Thread 3.5mm/18mm - [id number] Implanted:Qty: 3 on 03/19/2021 by Izaiah Velasquez MD at [facility] IMPLANT Right: Ankle [place] Orthopedic [id number] / [id number] / [id number] Washer Asnis Iii Orth Ti 4 Mm Screw - [id number] Implanted:Qty: 2 on 03/19/2021 by Izaiah Velasquez MD at [facility] IMPLANT Right: Ankle Ty Orthopedic [id number] / [id number] / [id number] Screw Bone 4mm 46mm Asnis Iii Ti P/T Rvrs Cut Flute Jaylon Self Drill Loprfl Ns - [id number] Implanted:Qty: 1 on 03/19/2021 by Izaiah Velasquez MD at [facility] IMPLANT Right: Ankle [place] Orthopedic [id number] / [id number] / [id number] Screw Bone 4mm 50mm Asnis Iii Ti P/T Rvrs Cut Flute Tarsus Metatarsal Jaylon Self Drill Loprfl Ns - [id number] Implanted:Qty: 1 on 03/19/2021 by Izaiah Velasquez MD at [facility] IMPLANT Right: Ankle [place] Orthopedic [id number] / [id number] / [id number] Stent Ureteral 6fr 2.1fr 22cm 2 Pigtail Curve 2 Durometer Taper Tip Loprfl Graduated Polaris Ultra - [id number] Implanted:Qty: 1 on 05/07/2021 by Lucho Saravia MD at [facility] IMPLANT Right: Ureter [email or web address] 07/17/2021 [id number] Description:Aqueous Biomedical c Polaris Ultra Dual durometer percuflex material Ureteral stent 6F (2.0mm) 22cm Procedures Procedure Name Priority Date/Time Associated Diagnosis Comments THYROID SCREEN WITH REFLEX Routine 01/02/2025 10:14 AM CDT Acquired hypothyroidism CBC WITH AUTO DIFFERENTIAL Routine 01/02/2025 10:14 AM CDT Fatigue, unspecified type ERYTHROCYTE SEDIMENTATION RATE (ESR) Routine 01/02/2025 10:14 AM CDT Arthralgia, unspecified joint C-REACTIVE PROTEIN (CRP) QUANT Routine 01/02/2025 10:14 AM CDT Arthralgia, unspecified joint ANTINUCLEAR ANTIBODY (RICKY), TITER IF POS Routine 01/02/2025 10:14 AM CDT Arthralgia, unspecified joint THYROID SCREEN WITH REFLEX Routine 01/02/2025 10:14 AM CDT Acquired hypothyroidism VITAMIN D, 25 HYDROXY TOTAL Routine 01/02/2025 10:14 AM CDT Vitamin D deficiency VITAMIN B12 Routine 01/02/2025 10:14 AM CDT Bipolar 1 disorder THYROXINE (T4) FREE Routine 01/02/2025 1 0:14 AM CDT Acquired hypothyroidism COMPLETE BLOOD COUNT (CBC) WITH DIFF Routine 01/02/2025 10:14 AM CDT Fatigue, unspecified type LIPID PANEL Routine 01/02/2025 10:14 AM CDT BMI 39.0-39.9,adult CMP (COMPREHENSIVE METABOLIC PANEL) Routine 01/02/2025 10:14 AM CDT Bipolar 1 disorder Fatigue, unspecified type BMI 39.0-39.9,adult PATHOLOGY CYTOLOGY MANUFACTURING TECHNOLOGY ANALYST Routine 04/04/2018 from Last 3 Months or Most Recently Relevant to Health Maintenance Results * VITAMIN D, 25 HYDROXY TOTAL (01/02/2025 10:14 AM CDT) VITAMIN D, 25 HYDROX 23.3 ng/mL 01/02/2025 1:28 PM CDT [facility] Blood Venipuncture / Unknown 01/02/2025 10:14 AM CDT 01/02/2025 10:14 AM CDT Narrative [facility] - 01/02/2025 1:28 PM CDT Published reference ranges for Vitamin D vary depending on time and place and method of testing, and on patient's age, sex, ethnicity and levels of other measured analytes such as parathormone, calcium and phosphorus. The result should be evaluated in conjunction with clinical findings and suspicions. [place] [employer] and Endocrine Clinical Practice Guidelines: Status Vitamin D levels (ng/mL) Deficient <=20 At risk of inadequacy 21-29 Sufficient 30-100 Centers of Disease Control and Prevention Guidelines: Status Vitamin D levels (ng/mL) Deficient <13 At risk of inadequacy 13-19 Sufficient 20-50 Possibly harmful >50 References: [place] [employer], 2010 Dietary reference intakes for calcium and vitamin D. [place]: The National Academies Press. [place] M, Dewey N, Juan Ramon MANUEL, et al., Evaluation, treatment, and prevention of Vitamin D deficiency: an Endocrinology Clinical Practice Guideline. JCEM 2011 96: 7 8441-5850. Joyce A, Rashad C, Wenceslao D, et al., Vitamin D Status: [place], , [facility] data brief, no. 59, MD [place]: [place] [facility] Statistics. 2011. Megan Welsh WHARF TENDER, CENTER MEDICAL DIRECTOR CHEMISTRY ORDERABL ES Final Result Performing Organization Address City/[facility]/ZIP Co de Phone Number [facility] [address] [place] [address] * THYROID SCREEN WITH REFLEX (01/02/2025 10:14 AM CDT) TSH 2.227 0.300 - 5.000 mIU/L 01/02/2025 1:24 PM CDT [facility] Blood Venipuncture / Unknown 01/02/2025 10:14 AM CDT 01/02/2025 10:14 AM CDT Megan Welsh WHARF TENDER, CENTER MEDICAL DIRECTOR CHEMISTRY ORDERABL ES Final Result Performing Organization Address City/[facility]/ZIP Co de Phone Number [facility] [address] [place] [address] * CBC WITH AUTO DIFFERENTIAL (01/02/2025 10:14 AM CDT) [facility] WBC 7.88 4.00 - 12.00 10(3)/mcL 01/02/2025 12:16 PM CDT [facility] RBC 5.13 3.80 - 5.30 10(6)/mcL 01/02/2025 12:16 PM CDT [facility] HEMOGLOBIN (HGB) 13.4 12.0 - 15.8 g/dL 01/02/2025 12:16 PM CDT [facility] HEMATOCRIT (HCT) 42.4 36.0 - 47.0 % 01/02/2025 12:16 PM CDT [facility] MCV 82.7 82.0 - 96.0 fL 01/02/2025 12:16 PM CDT [facility] MCH 26.1 26.0 - 34.0 pg 01/02/2025 12:16 PM CDT [facility] MCHC 31.6 31.0 - 36.0 g/dL 01/02/2025 12:16 PM CDT [facility] PLATELET COUNT 372 140 - 440 10(3)/mcL 01/02/2025 12:16 PM CDT [facility] RDW 14.6 11.8 - 15.5 % 01/02/2025 12:16 PM CDT [facility] MPV 10.5 9.7 - 12.4 fL 01/02/2025 12:16 PM CDT [facility] NEUTROPHILS 65.7 47.0 - 73.0 % 01/02/2025 12:16 PM CDT [facility] LYMPHOCYTES 25.3 18.0 - 42.0 % 01/02/2025 12:16 PM CDT [facility] MONOCYTES 6.5 4.0 - 12.0 % 01/02/2025 12:16 PM CDT [facility] EOSINOPHILS 1.8 0.0 - 5.0 % 01/02/2025 12:16 PM CDT [facility] BASOPHILS 0.4 0.0 - 1.0 % 01/02/2025 12:16 PM CDT [facility] IMMATURE GRANULOCYTE 0.3 0.0 - 0.4 % 01/02/2025 12:16 PM CDT [facility] ABSOLUTE NEUTROPHILS 5.19 1.60 - 7.70 10(3)/mcL 01/02/2025 12:16 PM CDT [facility] ABSOLUTE LYMPHOCYTES 1.99 1.30 - 3.20 10(3)/[facility] 01/02/2025 12:16 PM CDT [facility] ABSOLUTE MONOCYTES 0.51 0.20 - 1.00 10(3)/[facility] 01/02/2025 12:16 PM CDT [facility] ABSOLUTE EOSINOPHIL 0.14 0.00 - 0.40 10(3)/[facility] 01/02/2025 12:16 PM CDT [facility] ABSOLUTE BASOPHILS 0.03 0.00 - 0.10 10(3)/[facility] 01/02/2025 12:16 PM CDT [facility] ABSOLUTE IMMATURE GRANULOCYTE 0.02 0.00 - 0.03 10 (3) mcL. 01/02/2025 12:16 PM CDT [facility] NRBC PER 100 WBC 0 01/03/20 25 12:16 PM CDT [facility] Blood Venipuncture / Unknown 01/02/2025 10:14 AM CDT 01/02/2025 10:14 AM CDT us Megan Welsh WHARF TENDER, CENTER MEDICAL DIRECTOR HEMATOLOGY ORDERAB LES Final Result [facility] [address] [place] [address] * VITAMIN B12 (01/02/2025 10:14 AM CDT) VITAMIN B12 506 213 - 816 pg/mL 01/02/2025 1:28 PM CDT [facility] Blood Venipuncture / Unknown 01/02/2025 10:14 AM CDT 01/02/2025 10:14 AM CDT Megan Welsh WHARF TENDER, CENTER MEDICAL DIRECTOR CHEMISTRY ORDERABL ES Final Result [facility] [address] [place] [address] * THYROXINE (T4) FREE (01/02/2025 10:14 AM CDT) T4 FREE 0.9 0.7 - 1.9 ng/dL 01/02/2025 1:17 PM CDT [facility] Blood Venipuncture / Unknown 01/02/2025 10:14 AM CDT 01/02/2025 10:14 AM CDT Megan Welsh APRN, CENTER MEDICAL DIRECTOR CHEMISTRY ORDERABL ES Final Result Performing Organization Address City/[facility]/ZIP Co de Phone Number [facility] [address] [place] [address] * ERYTHROCYTE SEDIMENTATION RATE (ESR) (01/02/2025 10:14 AM CDT) ESR (SED RATE, ERYTHROCYTE SEDIMENTATION RATE) 6 <20 mm/h 01/02/2025 12:18 PM CDT [facility] Comment: Patients presenting with increased level of fibrinogen, gamma globulins, or abnormally shaped RBCs could affect the results for the erythrocyte sedimentation rate (ESR). Results should be clinically correlated. Blood Venipuncture / Unknown 01/02/2025 10:14 AM CDT 01/02/2025 10:14 AM CDT us Megan Welsh WHARF TENDER, CENTER MEDICAL DIRECTOR HEMATOLOGY ORDERAB LES Final Result [facility] [address] [place] [address] * (ABNORMAL) LIPID PANEL (01/02/2025 10:14 AM CDT) CHOLESTEROL 208(H) <200 mg/dL 01/02/2025 1:04 PM CDT [facility] TRIGLYCERIDES 73 <150 mg/dL 01/02/2025 1:04 PM CDT [facility] HDL CHOLESTEROL 62 >40 mg/dL 1:04 PM CDT [facility] LDL 131(H) <130 mg/dL 01/02/2025 1:04 PM CDT [facility] VLDL 15 10 - 50 mg/dL 01/02/2025 1:04 PM CDT [facility] CHOL/HDL RATIO 3.4 0.0 - 4.4 01/02/2025 1:04 PM CDT [facility] NON-HDL CHOLESTEROL 146(H) <130 mg/dL 01/02/2025 1:04 PM CDT [facility] IS THE PATIENT REQUIRED TO BE FASTING? Yes 01/02/2025 1:04 [facility] HAS THE PATIENT BEEN FASTING? Yes 01/02/2025 1:04 PM T [facility] Blood Venipuncture / Unknown 01/02/2025 10:14 AM CDT 01/02/2025 10:14 AM CDT Narrative [facility] - 01/02/2025 1:04 PM CDT NCEP GUIDELINES FOR LIPID INTERPRETATION TOTAL CHOLESTEROL DESIRABLE <200 BORDERLINE 200-239 HIGH >=240 LDL CHOLESTEROL OPTIMAL <100 NEAR OPTIMAL 100-129 BORDERLINE 130-159 HIGH 160-189 VERY HIGH >=190 Calculated using the Friedewald equation. HDL CHOLESTEROL LOW <40 *HIGH >=60 TRIGLYCERIDES NORMAL <150 BORDERLINE 150-199 HIGH 200-499 VERY HIGH >=500 VLDL calculated using Triglycerides/5. *HDL CHOLESTEROL >=60 mg/dL counts as a negative risk factor; its presence removes one risk factor from the total. Based on guidelines from the National Cholesterol Education Program, desirable levels for non HDL cholesterol are 30 mg/dL above target levels for LDL cholesterol. us Megan Welsh WHARF TENDER, CENTER MEDICAL DIRECTOR CHEMISTRY ORDERABL ES Final Result [facility] [address] [place] [address] * CMP (COMPREHENSIVE METABOLIC PANEL) (01/02/2025 10:14 AM CDT) SODIUM 139 136 - 145 mmol/L 01/02/2025 1:04 PM CDT [facility] POTASSIUM 4.2 3.5 - 5.1 mmol/L 01/02/2025 1:04 PM CDT [facility] CHLORIDE 103 98 - 107 mmol/L 01/02/2025 1:04 PM CDT [facility] CO2, VENOUS 28 22 - 30 mmol/L 01/02/2025 1:04 PM CDT [facility] ANION GAP 12.2 <18.0 mmol/L 01/02/2025 1:04 PM CDT [facility] GLUCOSE 93 70 - 99 mg/dL 01/02/2025 1:04 PM CDT [facility] BUN 13 5 - 18 mg/dL 01/02/2025 1:04 PM CDT [facility] CREATININE, BLOOD 0.93 0.60 - 1.00 mg/dL 01/02/2025 1:04 PM CDT [facility] BUN/CREATININE RATIO 14 12 - 20 ratio 01/02/2025 1:04 PM CDT [facility] TOTAL PROTEIN 7.2 6.0 - 8.0 g/dL 01/02/2025 1:04 PM CDT [facility] ALBUMIN 4.5 3.5 - 5.0 g/dL 01/02/2025 1:04 PM CDT [facility] A/G RATIO 1.7 1.0 - 2.2 01/02/2025 1:04 PM CDT [facility] CALCIUM 9.4 8.7 - 10.5 mg/dL 01/02/2025 1:04 PM CDT [facility] T BILI 0.5 0.2 - 1.2 mg/dL 01/02/2025 1:04 PM CDT [facility] SGOT (AST) 20 <43 U/L 01/02/2025 1:04 PM CDT [facility] SGPT (ALT) 23 <56 U/L 01/02/2025 1:04 PM CDT [facility] ALKALINE PHOSPHATASE 70 40 - 150 U/L 01/02/2025 1:04 PM CDT [facility] IS THE PATIENT REQUIRED TO BE FASTING? No 01/02/2025 1:04 PM CDT [facility] GFR, ESTIMATED >60 >=60 01/02/2025 1:04 PM CDT [facility] Comment: Creatinine Clearance is the preferred criteria for selecting drug dose adjustments in renally impaired patients. The GFR is provided as additional pertinent clinical information. GFR is reported in mL/min/1.73 sq m. Calculation based on the 2020 Chronic Kidney Disease Epidemiology Collaboration (CKD-EPI) equation refit without adjustment for race. GFR, EST. >60 >=60 1:04 PM CDT [facility] Comment: Creatinine Clearance is the preferred criteria for selecting drug dose adjustments in renally impaired patients. The GFR is provided as additional pertinent clinical information. GFR is reported in mL/min/1.73 sq m. Calculation based on the 2009 Chronic Kidney Disease Epidemiology Collaboration (CKD-EPI). GFR, EST. NONAFRICAN >60 >=60 01/02/2025 1:04 PM CDT [facility] Comment: Creatinine Clearance is the preferred criteria for selecting drug dose adjustments in renally impaired patients. The GFR is provided as additional pertinent clinical information. GFR is reported in mL/min/1.73 sq m. Calculation based on the 2009 Chronic Kidney Disease Epidemiology Collaboration (CKD-EPI). Blood Venipuncture / Unknown 01/02/2025 10:14 AM CDT 01/02/2025 10:14 AM CDT us Megan Welsh WHARF TENDER, CENTER MEDICAL DIRECTOR CHEMISTRY ORDERABL ES Final Result Performing Organization Address City/[facility] Co de Phone Number [facility] [address] [place] [address] * (ABNORMAL) C-REACTIVE PROTEIN (CRP) QUANT (01/02/2025 10:14 AM CDT) C-REACTIVE PROTEIN 0.65(H) <0.50 mg/dL 01/02/2025 2:36 PM CDT [facility] Blood Venipuncture / Unknown 01/02/2025 10:14 AM CDT 01/02/2025 10:14 AM CDT us Megan Welsh WHARF TENDER, CENTER MEDICAL DIRECTOR CHEMISTRY ORDERABL ES Final Result Performing Organization Address [facility] de Phone Number [facility] [address] [place] [address] * ANTINUCLEAR ANTIBODY (RICKY), TITER IF POS (01/02/2025 10:14 AM CDT) Pathologist [facility] RICKY SCREEN Negative Negative titer 01/03/2025 11:22 AM CDT [facility] Comment: Antinuclear autoantibodies not detected by IFA at a 1:80 screening dilution of HEp-2 cells. RICKY TITER Not Applicable Negative, See comment, Not Applicable titer 01/03/2025 11:22 AM CDT [facility] Comment: Antinuclear autoantibodies not detected by IFA at a 1:80 screening dilution of HEp-2 cells. RICKY PATTERN NOT APPLICABLE 01/03/2025 11:22 AM CDT [facility] Blood Venipuncture / Unknown 01/02/2025 10:14 AM CDT 01/02/2025 10:14 AM CDT us Megan Welsh WHARF TENDER, CENTER MEDICAL DIRECTOR IMMUNOLOGY ORDERAB LES Final Result Performing Organization Address City/[facility] Co de Phone Number [facility] [address] [place] [address], [place] * PATHOLOGY CYTOLOGY MANUFACTURING TECHNOLOGY ANALYST (04/04/2018) Specimen of unknown material (specimen) Maryam Mane APRN, CNP PATHOLOGY/CYTOLOGY ANGELI REYNOLDS Final Result from Last 3 Months or Most Recently Relevant to Health Maintenance Insurance MEDICAID [place] Advance Directives * Full Code (Latest Code Status on File) Date Activated Date Inactivated Comments 05/07/2021 12:00 AM 05/07/2021 5:35 PM CPR-Full Tr eatment: FULL ARREST: Attempt Resuscitation/CPR wit intubation and mechanical ventilation. PRE-ARREST: Use entire range of life support measures to stabilize the patient. Care Teams Casting Associate Relationship Specialty Start Date End Date Megan Welsh APRN, CENTER MEDICAL DIRECTOR [address] [phone] PCP - General Advanced Practice Nurse 12/22/24 Maryam Mane APRN, DIEUDONNE [address] [place] [id number] Obstetrics & Gynecology 09/01/18
--- NOTE | 2025-03-11 09:42 | ED_ITS ---
HPI - Abdominal Pain General Chief Complaint: Abdominal Pain Stated Complaint: n/v, abd pain, flank pain Time Seen by Provider: 03/11/25 07:07 Source: patient Mode of arrival: ambulatory Limitations: no limitations History of Present Illness HPI narrative: 30-year-old with a history of kidney stones, asthma, hypothyroidism here with a complains of nausea, vomiting, right flank pain for past 1 day patient states that she is unable to keep any fluids down at home , had tramadol from her previous visit took 1 around midnight still continues to have pain in the right flank area. No fever or chills. Denies any blood in the urine. MD elicited complaint: abdominal pain and flank pain Pertinent past history: kidney stones Onset (ago): day(s) (1) Pain Consistency: constant Location: R flank Severity: moderate Quality: aching Radiation: none Migration to: no migration Associated symptoms: nausea, vomiting and diarrhea Related Data Home Medications ?Medication ?Instructions ?Recorded ?Confirmed ?Last Taken ?Type albuterol sulfate 90 mcg/actuation 2 puff inhalation Q 4H PRN 03/27/21 11/30/23 Unknown History aerosol inhaler Shortness Of Breath Or Wheez ing lamotrigine 100 mg tablet 150 mg PO HS 07/14/23 1 Day Ago History ~11/29/23 vit no.95-ferrous 1 tablet PO DAILY 07/14/23 11/30/23 1 Day Ago History fumarate 28 mg-folic acid 800 mcg ~ tablet () quetiapine 50 mg tablet 50 mg PO DAILY PRN Anxiety 0 11/30/23 11/30/23 Unknown History valacyclovir 500 mg tablet 500 mg PO Q12H 11/30/2301/12 1 Day Ago History (Valtrex) ~11/29/23 Allergies Allergy/AdvReac Type Severity Reaction Status Date / Time metoclopramide (From Reglan) Allergy Unknown Other Verified 03/11/25 00:20 cat's claw Allergy Swelling Verified 03/11/25 00:20 coconut Allergy Abdominal Verified 03/11/25 00:20 Pain dog dander Allergy Swelling Verified 03/11/25 00:20 grass pollen Allergy Itching Verified 03/11/25 00:20 Penicillins Allergy Swelling Verified 03/11/25 00:20 of Lip/Tongue/Throat Sulfa (Sulfonamide Allergy Swelling Verified 03/11/25 00:20 Antibiotics) Review of Systems 2 Review of Systems: All systems reviewed & are unremarkable except as noted in HPI and below Constitutional: Constitutional: Reports no additional constitutional complaints Eyes: Eyes: Reports no additional eye complaints ENT: Reports system reviewed and no additional complaints, except as documented Cardiovascular: Cardiovascular: Reports no additional cardiovascular complaints Respiratory: Respiratory: Reports no additional respiratory complaints Gastrointestinal: Gastrointestinal: Reports as per HPI Genitourinary: Genitourinary: Reports as per HPI Musculoskeletal: Musculoskeletal: Reports no additional musculoskeletal complaints Neurologic: Reports system reviewed and no additional complaints, except as documented Psychiatric: Psychiatric: Reports no additional psychiatric complaints PMF Past Medical History Medical History UTI (urinary tract infection) Asthma Hypothyroidism Surgical History Surgical History History of tonsillectomy Family History Family History Other No pertinent family history Social History Social History Smoking status: Never smoker Alcohol intake: current Alcohol use details: rare Substance use: never Lack of Transportation: No Lack of Food: Never True Current Housing: I Have Housing Concerned About Future Housing: No Difficulty Paying Gas/Electric Bills: No Difficulty Paying for Meds: No Currently Unemployed: No Education: High School Diploma/GED Difficulty w/ Childcare or Family Care: No Living arrangements: with family Gender identity (if verbalized by the patient): Female Spiritual care concerns: No Exam 2 Narrative: GENERAL: Well-appearing, well-nourished, and in no acute distress. HEAD: Normocephalic, atraumatic. EYES: PERRLA and EOMI. ENT: Nares clear, no rhinorrhea or epistaxis. Mucous membranes moist. NECK: Supple. CHEST: Clear to auscultation. No respiratory distress. HEART: Regular rate and rhythm. No murmur heard. Normal peripheral pulses. ABDOMEN: Soft, nontender, nondistended, normal active bowel sounds. EXTREMITIES: Normal range of motion. No edema. SKIN: Warm, dry, no rash. NEURO: No focal deficits. Alert and oriented x3. PSYCH: Normal mood and affect. Course Course Emergency Course: Patient had IV fluids, Zofran for nausea control she had no further episodes of nausea or vomiting. I did inform about her lab work, CT findings. She is feeling much better. Advised her to drink more fluids take Tylenol IV fluids Zofran for nausea as needed. Vital Signs Vital signs: Vital Signs Temperature 36.6 C 03/11/25 00:18 Pulse Rate 116 H 03/11/25 00:18 Respiratory Rate 20 03/11/25 00:18 Blood Pressure 104/89 03/11/25 00:18 Pulse Oximetry 98 03/11/25 00:18 Oxygen Delivery Room Air 03/11/25 00:18 Temperature 36.7 C 03/11/25 07:15 Pulse Rate 79 03/11/25 07:15 Respiratory Rate 18 03/11/25 07:15 Blood Pressure 109/75 03/11/25 07:15 Pulse Oximetry 98 03/11/25 07:15 Oxygen Delivery Room Air 03/11/25 04:53 [facility] Differential Diagnosis Differential Diagnosis: UTI, pyelonephritis, kidney stones, musculoskeletal pain Lab Data MDM Lab Attestation statement: I personally reviewed the patient's lab results. 03/11/25 03:27 03/11/25 03:27 Labs: Lab Results 03/11/25 Range/Units 03:27 WBC 9.3 (4.5-10.0) K/mm3 RBC 5.06 (4.2-5.4) M/mm3 Hgb 13.2 (12.0-15.0) g/dL Hct 40.1 (37.0-47.0) % MCV 79.2 L (80-100) fl MCH 26.1 (26-34) pg MCHC 32.9 (32-36) g/dl RDW 14.6 H (11.5-14.5) % Plt Count 349 (150-375) k/mm3 MPV 9.5 (7.4-10.4) fl Immature Gran % (Auto) 0.2 (0-0.5) % Neut % (Auto) 87.7 H (45.5-73.1) % Lymph % (Auto) 6.7 L (18.3-44.2) % [place] % (Auto) 5.1 (2.6-8.5) % Eos % (Auto) 0.0 (0-4.4) % Baso % (Auto) 0.3 (0.2-1.2) % Lymph # (Auto) 0.63 L (0.9-3.2) K/mm3 [place] # (Auto) 0.5 (0.1-0.6) K/mm3 Eos # (Auto) 0.0 (0-0.3) K/mm3 Baso # (Auto) 0.0 (0.0-0.1) K/mm3 Abs Immat Gran (auto) 0.02 (0.00-0.031) K/mm3 Absolute Neuts (auto) 8.2 H (1.3-6.7) K/mm3 Absolute Nucleated RBC 0.000 (0.0-0.012) K/mm3 Nucleated RBC % 0.0 (0.0-0.2) % Sodium 138 (137-145) mmol/L Potassium 3.9 (3.4-5.0) mmol/L Chloride 104 (98-107) mmol/L Carbon Dioxide 24 (22-30) mmol/L Anion Gap 10 (4-12) mmol/L BUN 19 H (7-17) mg/dL Creatinine 0.89 (0.7-1.0) mg/dL Estim Creat Clear Calc 91 ml/min Estimated GFR > 60 (59 - ) Glucose 112 H (65-110) mg/dL Calcium 8.6 (8.4-10.2) mg/dL Total Bilirubin 0.6 (0.2-1.3) mg/dL AST 23 (14-36) U/L ALT 17 (6-35) U/L Alkaline Phosphatase 56 (38-126) U/L Total Protein 7.1 (6.3-8.2) g/dL Albumin 4.2 (3.5-5.1) g/dL Lipase 24 (23-300) U/L Urine Color Yellow (Yellow) Urine Appearance Turbid H (Clear) Urine pH 5.0 (5.0-9.0) Ur Specific [place] > 1.045 H (1.001-1.035) Urine Protein 1+ H (Negative) mg/dL Urine Glucose (UA) Negative (Negative) mg/dL Urine Ketones 1+ H (Negative) mg/dL Ur Blood (Man) Negative (Negative) Urine Nitrate Negative (Negative) Urine Bilirubin Negative (Negative) Urine Urobilinogen 1.0 (<2.0) mg/dL Add Ur Microanalysis Reviewed Leukocyte Esterase Rfl Negative (Negative) LATONYA/UL Urine RBC 0-2 (0-2) /hpf Urine WBC 0-5 (0-3) /hpf Ur Squamous Epith Cells Occasional (Few) /hpf Urine Bacteria 1+ H /hpf Urine Casts 0-2 Urine Mucus Present /lpf POC Urine HCG, Qual Negative (Negative) Imaging Data Radiologist's impression: ITS Impressions Abdomen/Pelvis CT 03/11/25 08:17 IMPRESSION: 1. No acute findings. 2. Small stone left kidney. No hydronephrosis. Discharge Plan Discharge Clinical Impression: Nausea & vomiting Qualifiers: Vomiting type: unspecified Qualified Code(s): R11.2 - Nausea with vomiting, unspecified Flank pain Qualifiers: Laterality: right Qualified Code(s): R10.A1 - Flank pain, right side Patient Disposition: Home Condition: Stable Instructions: Abdominal Pain (ED) Additional Instructions: continue home medications, follow with your doctor. Patient Language: German Prescriptions: New ondansetron 4 mg tablet,disintegrating 4 mg PO Q6-8H PRN (Reason: nausea and vomiting) Qty: 14 0RF No Action albuterol sulfate 90 mcg/actuation HFA aerosol inhaler 2 puff INHALATION Q4H PRN (Reason: Shortness Of Breath Or Wheezing) lamotrigine 100 mg tablet 150 mg PO HS PNV no.95-ferrous fumarate-FA [] 28 mg iron- 800 mcg Tablet 1 tablet PO DAILY cephalexin 500 mg capsule 500 mg PO Q12H Qty: 14 0RF fluconazole [Diflucan] 100 mg tablet 100 mg PO DAILY Qty: 1 0RF quetiapine 50 mg tablet 50 mg PO DAILY PRN (Reason: Anxiety) valacyclovir [Valtrex] 500 mg Tablet 500 mg PO Q12H oxycodone-acetaminophen 5-325 mg tablet 1 tablet PO Q4H PRN (Reason: pain) Qty: 25 0RF Follow-up/Referrals: Keesha,MD Joanna [Primary Care Provider, Unknown] Time of Disposition: 09:50
== END 2025-03-11 10:00 | disposition home or self-care (01) ==
PROVIDERS: Physician Assistant; Emergency Provider Family Medicine; PCP Family Medicine
DX: R11.2 Nausea with vomiting, unspecified (principal); R10.A1 Flank pain, right side; E03.9 Hypothyroidism, unspecified; J45.909 Unspecified asthma, uncomplicated
CPT/HCPCS: 36415; 74176; 80053; 81001; 81025; 83690; 85025; 96361; 96374; 99284; J2405; J7030